=== PATIENT | male | born 1955 ===

== ENCOUNTER 2017-02-03 18:17 | Inpatient (IN) | payer MEDICARE, MEDICAID ==
--- NOTE | 2017-02-03 19:56 | ED PDOC ---
HPI: General Adult Time Seen by Provider: 02/03/17 18:32 Chief Complaint (Nursing): Substance Abuse Chief Complaint (Provider): Substance abuse History Per: Patient, Family History/Exam Limitations: no limitations Onset/Duration Of Symptoms: Days Have you had recent travel within the past 21 days to any of the following countries: [place], [place], [place] or [place]?: No Current Symptoms Are (Timing): Still Present Severity: Moderate Additional History Per: Patient, Family Additional Complaint(s): The pt is a 61yo male, with hx of 2x strokes, right sided paralysis and left arm weakness, presents to the ED for evaluation s/p ingesting high amounts of prescription medications. Pt accompanied by at bedside who reports pt has been increasingly agitated as he has not been able to take care of himself. She reports giving control of the medication to the pt and while at the house today , the pt's daughter called 911 after the patient had ingested pills. Provider called daughter ([phone]) who states her father took 6-7 percocets (10-325) and 3-4 gabapentins. Daughter reports the pt stated he wanted to hurt himself and "did not want to live anymore." Currently in the ED, pt reports he is fine and wishes to leave - pt states he was in a lot of pain and wanted to make himself feel better. At present, he denies any suicidal ideation and offers no additional medical complaints. Past Medical History Reviewed: Historical Data, Nursing Documentation, Vital Signs Vital Signs: Last Vital Signs Temp 102.2 F H 02/03/17 20:17 Pulse Resp BP Pulse Ox - Medical History PMH: Anemia, Anxiety, CVA, Depression, Gastritis, HTN, Hypercholesterolemia, Pneumonia Denies: HIV, Chronic Kidney Disease - Surgical History Surgical History: No Surg Hx - Family History Family History: States: Unknown Family Hx - Immunization History Hx Tetanus Toxoid Vaccination: No Hx Influenza Vaccination: No Hx Pneumococcal Vaccination: No - Home Medications Home Medications: Ambulatory Orders Medication Instructions Recorded Apixaban [Eliquis] 5 mg PO Q12H 06/07/15 Bisacodyl [Dulcolax] 10 mg SC DAILY 06/07/15 Docusate [Colace] 300 mg PO HS PRN 06/07/15 Gabapentin 600 mg PO TID 06/07/15 Insulin Aspart [Novolog Flexpen] 0 unit SC TID 06/07/15 Oxycodone HCl/Acetaminophen 1 tab PO Q6H PRN 06/07/15 [Endocet 10-325 mg Tablet] QUEtiapine [Seroquel XR] 300 mg PO HS 06/07/15 Rosuvastatin Calcium [Crestor] 40 mg PO HS 06/07/15 Trazodone HCl [Oleptro ER] 150 mg PO HS 06/07/15 hydrOXYzine Pamoate [Vistaril] 25 mg PO TID PRN 06/07/15 Clonazepam 1 mg PO DAILY 12/20/15 Clonazepam 2 mg PO HS 12/20/15 Esomeprazole Magnesium [Nexium] 40 mg PO DAILY 12/20/15 Lactobacillus Acidophilus [Bacid 1 tab PO BID 12/20/15 Acidophilus] Victoz 18mg/3ml 0.2 ml SC HS 12/20/15 Cephalexin [cephalexin] 500 mg PO QID #40 cap 06/21/16 Naloxegol Oxalate [Movantik] 25 mg PO QAM #30 tablet 06/21/16 - Allergies Allergies/Adverse Reactions: Allergies Allergy/AdvReac Type Severity Reaction Status Date / Time No Known Allergies Allergy Verified 06/21/16 12:23 Review of Systems ROS Statement: Except As Marked, All Systems Reviewed And Found Negative Musculoskeletal: Positive for: Other (left arm weakness - at baseline) Psych: Positive for: Other (substance abuse) Physical Exam - Reviewed Nursing Documentation Reviewed: Yes Vital Signs Reviewed: Yes - Physical Exam Appears: Positive for: Well, Non-toxic, No Acute Distress Head Exam: Positive for: ATRAUMATIC, NORMAL INSPECTION, NORMOCEPHALIC Skin: Positive for: Normal Color Eye Exam: Positive for: Normal appearance Neck: Positive for: Normal Cardiovascular/Chest: Positive for: Regular Rate, Rhythm Respiratory: Positive for: Normal Breath Sounds. Negative for: Respiratory Distress Gastrointestinal/Abdominal: Positive for: Normal Exam, Soft. Negative for: Tenderness Male Genital Exam: Positive for: other (marina in place) Neurologic/Psych: Positive for: Alert, Oriented, Motor/Sensory Deficits ( paralyzed in right arm, bilateral legs. ), Mood/Affect (normal mentation, at bedside who states pt with normal mentation) - Laboratory Results Result Diagrams: 02/03/17 19:20 02/03/17 19:20 Medical Decision Making Medical Decision Making: Time: 1855 Impression: Substance abuse Plan: -- Bloodwork -- CXR -- Urinalysis -- Crisis evaluation --Reassess 1911 Poison control contacted by RN - agree with labwork, requesting 4 hour Tylenol and repeat CMP 1999 Pt signed out to BRANDIE David pending labs and crisis evaluation. Scribe Attestation: Documented by Lisandra Collado acting as a scribe for BRANDIE Sharpe. Provider Attestation: All medical record entries made by the Scribe were at my direction and personally dictated by me. I have reviewed the chart and agree that the record accurately reflects my personal performance of the history, physical exam, medical decision making, and the department course for this patient. I have also personally directed, reviewed, and agree with the discharge instructions and disposition. Disposition - Clinical Impression Clinical Impression: Drug overdose, Suicidal ideation - Patient ED Disposition Is Patient to be Admitted: Transfer of Care - Disposition Disposition: Transfer of Care Disposition Time: 20:00 Condition: STABLE Patient Signed Over To: Samantha Camacho
[2017-02-03 19:57] LABS: BASO % 0.2 % (0.0-2.0); EOS # 0.2 K/uL (0.0-0.7); EOS % 1.4 % (0.0-4.0); HEMATOCRIT 36.4 % (35.0-51.0); LYMPH # 0.7 K/uL (1.0-4.3); LYMPH % 6.1 % (20.0-40.0); MEAN CELL VOLUME 93.7 fl (80.0-94.0); MEAN CORPUSCULAR HEMOGLOBIN 30.3 pg (27.0-31.0); MEAN CORPUSCULAR HGB CONC 32.3 g/dL (33.0-37.0); MEAN PLATELET VOLUME 7.2 fl (7.2-11.7); MONO # 0.5 K/uL (0.0-0.8); MONO % 4.1 % (0.0-10.0); NEUT # 10.2 K/uL (1.8-7.0); NEUT % 88.2 % (50.0-75.0); NRBC % 0.1 % (0.0-0.0); PLATELET COUNT 240 K/uL (130-400); RED CELL DISTRIBUTION WIDTH 13.1 % (11.5-14.5)
[2017-02-03 20:01] LABS: WHITE BLOOD COUNT 11.6 K/uL (4.8-10.8)
[2017-02-03 20:05] LABS: RBC URINE 24 /hpf (0-3); URINE BACTERIA MANY (<OCC); URINE BILIRUBIN NEGATIVE (NEGATIVE); URINE BLOOD MODERATE (NEGATIVE); URINE COLOR YELLOW (YELLOW); URINE GLUCOSE (UA) NEG (Normal); URINE KETONE NEGATIVE (NEGATIVE); URINE LEUKOCYTE ESTERASE LARGE Leu/uL (Negative); URINE PROTEIN 100 mg/dL (NEGATIVE); URINE UROBILINOGEN 0.2-1.0 mg/dL (0.2-1.0); WBC URINE 179 /hpf (0-5)
[2017-02-03 20:07] LABS: ALCOHOL SERUM < 10 mg/dl (0-10); BLOOD UREA NITROGEN 18 mg/dl (9-20); CALCIUM 9.1 mg/dL (8.4-10.2); CARBON DIOXIDE 25 mmol/L (22-30); CHLORIDE 104 mmol/L (98-107); GFR AFRICAN-AMERICAN > 60; GLUCOSE,RANDOM 228 mg/dL (75-110); POTASSIUM 4.4 MMOL/L (3.6-5.0); SODIUM 141 mmol/l (132-148)
[2017-02-03 20:46] LABS: VENOUS BLOOD GAS BASE EXCESS -1.7 mmol/L (0.0-2.0); VENOUS BLOOD GAS PCO2 59 mmHg (40-60); VENOUS BLOOD PH 7.26 (7.32-7.43)
[2017-02-03] MEDS ORDERED: Sodium Chloride 0.9% 1,000 ML IV STA (20:50)
[2017-02-03] MEDS ORDERED: Vancomycin 1 g Inj ONE (20:58)
[2017-02-03] MEDS ORDERED: Sodium Chloride 0.9% 2,000 ML IV STA (21:03)
--- NOTE | 2017-02-03 21:05 | ED PDOC ---
- Laboratory Results Result Diagrams: 02/03/17 19:20 02/03/17 19:20 Medical Decision Making Medical Decision Making: Pt endorsed pending labs and crisis evaluation. Pts temp 102.2, elevated wBC- lactate ordered with blood cultures, fluids, and antibiotics. Dr. Gna aware and has seen patient. Discussed with Dr. Goldberg for admission to telemetry. Disposition - Clinical Impression Clinical Impression: Overdose, Suicidal ideation, Catheter-associated urinary tract infection, Sepsis - POA Present On Arrival: Cath Associated UTI - Disposition Disposition: Admitted as In-Patient Disposition Time: 21:05 Condition: STABLE
[2017-02-03] MEDS ORDERED: Cefepime 1 GM in Sodium Chloride 0.9% 100 ML IVPB STA (21:11)
[2017-02-03] MEDS ORDERED: Cefepime 1 GM in Sodium Chloride 0.9% 100 ML IVPB ONE (21:30)
[2017-02-03 21:55] LABS: NEUTROPHIL 87 % (42-75); TOTAL CELLS COUNTED 100
[2017-02-03 22:37] LABS: ALB/GLOB RATIO 0.9 (1.0-2.1); BILIRUBIN,TOTAL 0.7 mg/dl (0.2-1.3); TOTAL PROTEIN 7.6 G/DL (6.3-8.2)
--- NOTE | 2017-02-03 22:50 | CP.PCM.CON ---
History of Present Illness - History of Present Illness History of Present Illness: Attending: Dr Goldberg Reason for consult: Critical care management Chief Complaint: Agitation/Depression/ Drug overdose state HPI: The hx is obtained from the Patient and the Medical records review. He is a 61 years old bed bound malemale with hx of DM II; Anemia; Suicide Ideation, CVA x3 with sequelas of right side paralysis. His daughter called 911 because he was depressed and ingested 6-7 Percocet tables at 10-325and 3-4 Gabapentin of 600mg each. She reported that the patient stated that he wanted to hurt himself. In the ED the patient was alert but Blood pressure drooped to a SBP of 80mmHg and a temperature of 102.2F, HR of 106/minute and Lactic acid of 3.2. He was still hypotensive despite 2L of NS. decision was made to admit to ICU. PMH: Anemia, Anxiety and Depression; CVA x+ with sequelas of right upper and lower extremities weakness; Gastritis; HTN, HLD; BPH; DM II; Osteoarthritis; Suicide Ideation; Incontinence; Indwelling marina catheter; Unsteady gait. PSH: No known surgery SH: Never smoked; No ETOH; No illegal drug use; Live with the Family FH: No known family hx Allergies: NKDA Review of Systems - Constitutional Constitutional: Fatigue, Weakness. absent: Chills, Fever, Headache - EENT Eyes: Requires Corrective Lenses. absent: Diplopia, Photophobia, Sees Flashes Ears: absent: Decreased Hearing, Ear Discharge, Ear Pain, Tinnitus Nose/Mouth/Throat: absent: Epistaxis, Nasal Congestion, Nasal Discharge, Sinus Pain, Sinus Pressure, Sore Throat - Cardiovascular Cardiovascular: Edema. absent: Chest Pain, Dyspnea, Lightheadedness, Palpitations - Respiratory Respiratory: absent: Cough, Dyspnea, Wheezing, Stridor - Gastrointestinal Gastrointestinal: absent: Constipation, Diarrhea, Nausea, Vomiting - Genitourinary Genitourinary: Urinary Incontinence. absent: Dysuria, Hematuria - Musculoskeletal Additional comments: Bed bound with pain to the right lower and upper extremity - Integumentary Integumentary: Swelling. absent: Skin Ulcer, Sores - Neurological Neurological: Focal Weakness. absent: Dizziness, Headaches, Memory Loss - Psychiatric Psychiatric: Anxiety, Depression, Suicidal Ideation - Endocrine Endocrine: absent: Palpitations, Polydipsia, Polyphagia, Polyuria - Hematologic/Lymphatic Hematologic: absent: Easy Bleeding, Easy Bruising Past Patient History - Past Medical History & Family History Past Medical History?: Yes - Past Social History Smoking Status: Never Smoked Chewing Tobacco Use: No Cigar Use: No Alcohol: None Drugs: Denies Home Situation {Lives}: With Family - CARDIAC Hx Hypercholesterolemia: Yes Hx Hypertension: Yes - PULMONARY Hx Pneumonia: Yes - NEUROLOGICAL Hx Neurological Disorder: Yes HX Cerebrovascular Accident: Yes Hx Meningitis: Yes - HEENT Hx HEENT Problems: No - RENAL Hx Chronic Kidney Disease: No - ENDOCRINE/METABOLIC Hx Endocrine Disorders: Yes Hx Diabetes Mellitus Type 2: Yes - HEMATOLOGICAL/ONCOLOGICAL Hx Anemia: Yes Hx Human Immunodeficiency Virus (HIV): No - INTEGUMENTARY Hx Dermatological Problems: No Other/Comment: MRSA - MUSCULOSKELETAL/RHEUMATOLOGICAL Hx Musculoskeletal Disorders: Yes Hx Falls: No Hx Unsteady Gait: Yes - GASTROINTESTINAL Hx Gastritis: Yes - GENITOURINARY/GYNECOLOGICAL Hx Genitourinary Disorders: Yes Hx Incontinence: Yes Hx Prostate Problems: Yes Hx Urinary Tract Infection: Yes Other/Comment: urinary retention - PSYCHIATRIC Hx Anxiety: Yes Hx Depression: Yes - SURGICAL HISTORY Hx Surgeries: Yes Other/Comment: Neck Sx, Right hand Sx, Right leg Sx cystoscopy - ANESTHESIA Hx Anesthesia: Yes Hx Anesthesia Reactions: No Hx Malignant Hyperthermia: No Meds Allergies/Adverse Reactions: Allergies Allergy/AdvReac Type Severity Reaction Status Date / Time No Known Allergies Allergy Verified 06/21/16 12:23 Physical Exam - Constitutional Appears: No Acute Distress - Head Exam Head Exam: ATRAUMATIC, NORMAL INSPECTION, NORMOCEPHALIC - Eye Exam Eye Exam: EOMI, Normal appearance - ENT Exam ENT Exam: Mucous Membranes Moist, Normal Exam, Normal External Ear Exam, Normal Oropharynx - Neck Exam Neck exam: Positive for: Full Rom, Normal Inspection - Respiratory Exam Respiratory Exam: Clear to Auscultation Bilateral. absent: Rales, Rhonchi, Wheezes - Cardiovascular Exam Cardiovascular Exam: REGULAR RHYTHM, RRR, +S1, +S2 - GI/Abdominal Exam Additional comments: Abdomen full, Nontender , Firm to palpation, +ve bowel sounds. - Rectal Exam Rectal Exam: Deferred - Extremities Exam Additional comments: Pain to the right leg, and the right lower back.Trace edema to both lower extremities. - Back Exam Back exam: NORMAL INSPECTION. absent: CVA tenderness (L), CVA tenderness (R) - Neurological Exam Neurological exam: Alert, Oriented x3, Reflexes Normal - Psychiatric Exam Psychiatric exam: Normal Affect, Normal Mood - Skin Skin Exam: Dry, Intact, Normal Color Results - Vital Signs Recent Vital Signs: Last Vital Signs Temp 102.3 F H 02/03/17 22:48 Pulse 105 H 02/03/17 22:48 Resp 20 02/03/17 22:48 BP 88/57 L 02/03/17 22:48 Pulse Ox 100 02/03/17 22:48 - Labs Result Diagrams: 02/03/17 23:20 02/03/17 23:20 - Imaging and Cardiology Chest x-ray Status: Image reviewed by me, Report reviewed by me Additional comment: No infiltrates. Assessment & Plan - Assessment and Plan (Free Text) Assessment: #.Catheter associated UTI #. Sepsis #. DM Uncontrolled #. Suicide Ideation #. anemia #. Hx of Old CVA with right side weakness Plan: 61 years old bed bound male with hx of DM II; Anemia; Suicide Ideation, CVA x3 with sequelas of right side paralysis. brought to the ED because he was depressed and ingested 6-7 Percocet tables at 10-325 and 3-4 Gabapentin of 600mg each. His daughter reported that the patient stated that he wanted to hurt himself. In the ED the patient was alert but Blood pressure drooped to a SBP of 80mmHg and a temperature of 102.2F, HR of 106/minute and Lactic acid of 3.2. He was still hypotensive despite 2L of NS. decision was made to admit to ICU. #.Catheter associated UTI - Change marina catheter - Moxifloxacin IVPB 2gms Q12hrs - follow urine culture #. Sepsis - Consult Dr Anglin ID - Follow Blood and Urine cultures - Antibiotics - IV fluids - follow Lactic aacid #. DM Uncontrolled - Diabetic diet - Insulin Lispro sliding scale according to accucheck - HbA1c #. Suicide Ideation/ Anxiety/depressive disorder - Consult Psychiatry dr Ochoa - psychiatric management #. Anemia - Follow Hb - follow HbA1c #. Hx of Old CVA with right side weakness - Social service consult for penitentiary placement -Apixaban/Crestor - OT/PT #. Gastritis - Pantoprazole #. DVT prophylaxis with Apixan #Code Status: Full - Date & Time Date: 02/03/17 Time: 22:50
[2017-02-03 23:42] LABS: BASO % 0.2 % (0.0-2.0); EOS # 0.1 K/uL (0.0-0.7); EOS % 0.7 % (0.0-4.0); HEMATOCRIT 31.4 % (35.0-51.0); LYMPH # 0.8 K/uL (1.0-4.3); LYMPH % 7.7 % (20.0-40.0); MEAN CELL VOLUME 94.1 fl (80.0-94.0); MEAN CORPUSCULAR HEMOGLOBIN 30.7 pg (27.0-31.0); MEAN CORPUSCULAR HGB CONC 32.6 g/dL (33.0-37.0); MEAN PLATELET VOLUME 7.1 fl (7.2-11.7); MONO # 0.8 K/uL (0.0-0.8); MONO % 7.2 % (0.0-10.0); NEUT # 9.1 K/uL (1.8-7.0); NEUT % 84.2 % (50.0-75.0); RED CELL DISTRIBUTION WIDTH 13.3 % (11.5-14.5); WHITE BLOOD COUNT 10.9 K/uL (4.8-10.8)
[2017-02-03 23:54] LABS: ALB/GLOB RATIO 0.8 (1.0-2.1); ALKALINE PHOSPHATASE 113 U/L (38-126); ALT/SGPT 36 U/L (21-72); AST/SGOT 33 U/L (17-59); BILIRUBIN,TOTAL 0.5 mg/dl (0.2-1.3); BLOOD UREA NITROGEN 16 mg/dl (9-20); CALCIUM 7.8 mg/dL (8.4-10.2); CARBON DIOXIDE 21 mmol/L (22-30); CHLORIDE 109 mmol/L (98-107); GFR AFRICAN-AMERICAN > 60; GLUCOSE,RANDOM 227 mg/dL (75-110); POTASSIUM 3.7 MMOL/L (3.6-5.0); SODIUM 141 mmol/l (132-148)
[2017-02-04 00:01] LABS: ABG ALLEN TEST YES; ARTERIAL BLOOD GAS HCO3 21.8 mmol/L (21-28); ARTERIAL BLOOD GAS MODE N/C; ARTERIAL BLOOD GAS PH 7.33 (7.35-7.45); ARTERIAL BLOOD GAS PO2 59 mm/Hg (80-100)
[2017-02-04] MEDS ORDERED: Oxycodone/Acetaminophen 5/325 mg Tab PO PRN ×4 (00:46→16:30)
[2017-02-04] MEDS: Sodium Chloride 0.9% 1,000 ML IV SCH ×4 (01:14→22:13)
[2017-02-04] MEDS: Oxycodone/Acetaminophen 5/325 mg Tab PO PRN ×3 (02:12→16:50)
[2017-02-04 04:38] VITALS: BMI 25.8
[2017-02-04] MEDS: Insulin Lispro (humaLOG) 100 Units/ml Inj SC SCH ×5 (06:06→21:49)
[2017-02-04 07:11] LABS: BASO % 0.3 % (0.0-2.0); EOS # 0.1 K/uL (0.0-0.7); EOS % 1.1 % (0.0-4.0); HEMATOCRIT 34.9 % (35.0-51.0); LYMPH # 1.5 K/uL (1.0-4.3); LYMPH % 14.5 % (20.0-40.0); MEAN CELL VOLUME 94.2 fl (80.0-94.0); MEAN CORPUSCULAR HGB CONC 32.9 g/dL (33.0-37.0); MEAN PLATELET VOLUME 6.9 fl (7.2-11.7); MONO # 0.6 K/uL (0.0-0.8); MONO % 6.3 % (0.0-10.0); NEUT % 77.8 % (50.0-75.0); NRBC % 0.1 % (0.0-0.0); RED CELL DISTRIBUTION WIDTH 13.6 % (11.5-14.5); WHITE BLOOD COUNT 10.3 K/uL (4.8-10.8)
[2017-02-04 07:58] LABS: BLOOD UREA NITROGEN 15 mg/dl (9-20); CALCIUM 8.5 mg/dL (8.4-10.2); CARBON DIOXIDE 20 mmol/L (22-30); CHLORIDE 112 mmol/L (98-107); GFR AFRICAN-AMERICAN > 60; GLUCOSE,RANDOM 183 mg/dL (75-110); POTASSIUM 3.8 MMOL/L (3.6-5.0); SODIUM 145 mmol/l (132-148)
[2017-02-04] MEDS ORDERED: CLONAZEPAM 1 MG PO SCH (09:00)
--- NOTE | 2017-02-04 09:47 | RAD ---
HISTORY: possible overdose COMPARISON: 06/21/2016 FINDINGS: LUNGS: The lungs are clear. PLEURA: No significant pleural effusion identified, no pneumothorax apparent. CARDIOVASCULAR: Normal. OSSEOUS STRUCTURES: No significant abnormalities. VISUALIZED UPPER ABDOMEN: Normal. OTHER FINDINGS: None. IMPRESSION: No acute findings.
--- NOTE | 2017-02-04 09:51 | RAD ---
HISTORY: sepsis, central line placement COMPARISON: 02/03/2017 at 7:12 p.m. FINDINGS: The right IJV line terminates in the right atrium. LUNGS: The lungs are clear. PLEURA: No significant pleural effusion identified, no pneumothorax apparent. CARDIOVASCULAR: Normal. OSSEOUS STRUCTURES: No significant abnormalities. VISUALIZED UPPER ABDOMEN: Normal. OTHER FINDINGS: None. IMPRESSION: No active pulmonary disease.
[2017-02-04] MEDS: Cefepime 2 GM in Sodium Chloride 0.9% 100 ML IVPB SCH ×2 (10:04→20:06)
[2017-02-04] MEDS: Pantoprazole 20 mg EC Tab PO SCH (10:05)
[2017-02-04] MEDS: Lactobacillus Acidophilus 500 MU Cap PO SCH ×2 (10:07→16:53)
--- NOTE | 2017-02-04 14:37 | CARD ---
APPROVED REPORT EKG Measurement Heart [id number] <Conclusion> Sinus tachycardia Otherwise normal ECG
[2017-02-04] MEDS ORDERED: Oxycodone/Acetaminophen 5/325 mg Tab ONE (16:41)
--- NOTE | 2017-02-04 16:45 | HP ---
CHIEF COMPLAINT: Change in mental status, suicidal ideation and drug overdose. HISTORY OF PRESENT ILLNESS: This is a 61-year-old male, known case of multiple CVAs, hypertension, h yperlipidemia, type 2 diabetes, arthritis, anemia and depression who was found by daughter after kiran waldron multiple drug overdoses and change in mental status. Also, patient was having . The patient was brought to Emergency Room and was admitted for further management after found septic. The patie nt is not able to provide any informative history or review of systems. PAST MEDICAL HISTORY: Significant for multiple CVAs, hypertension, hyperlipidemia, diabetes type 2, osteoarthritis, depression, incontinence with indwelling Owens catheter and CVA with hemiparesis. PAST SURGICAL HISTORY: Unremarkable. PERSONAL HISTORY: The patient is currently a nonsmoker, nondrinker, no substance abuse. MEDICATIONS: The patient is on multiple medications, which is as per reconciliation sheet, which was reviewed in order. ALLERGIES: The patient is not allergic to any medication. FAMILY HISTORY: Noncontributory. PHYSICAL EXAMINATION: GENERAL: Well-built, well-nourished overweight 61-year-old male in no acute distress, but not commun icative. VITAL SIGNS: Temperature 98.6, pulse 71, respirations 15, blood pressure 88/61. HEENT: Pupils reacting to light. Nystagmus, as the patient is not cooperative. NECK: Supple. No JVD, no thyromegaly, no lymphadenopathy. HEART: S1, S2 tachycardic. No significant murmur, gallop or rub is heard. LUNGS: Shows good bilateral air entry. No rales or rhonchi. ABDOMEN: Soft, nontender, no organomegaly, no fluid. Bowel sounds are plus. EXTREMITIES: No edema, no calf swelling, no tenderness, no acute ischemia. CENTRAL NERVOUS SYSTEM: The patient had multiple CVAs with hemiparesis. The patient is not able to participate for [facility] exam. DIAGNOSTIC DATA: Available diagnostic data reviewed. Telemetry monitoring does not reveal significa nt arrhythmias. WBC 10.3, hemoglobin 11.5, hematocrit 34.9, platelets 218. , pCO2 of 42, pO2 59, saturation 97%. Sodium 140, potassium 3.8, chloride 112, bicarb 20, BUN 15, creatinine 0.9, gluc ose is 198, and 190. Chest x-ray does not reveal any acute finding. EKG shows sinus tachycard ia, otherwise unremarkable. ADMITTING IMPRESSION: Septic shock, septicemia secondary to urinary tract infection, status post mul tiple cerebrovascular accidents, hypertension, type 2 diabetes with hyperglycemia, elevated cholester ol, anxiety, depression, suicidal attempt. PLAN: As ordered. 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 Phuc Goldberg MD cc: [phone] TT: 02/04/2017 16:45:07 mn
[2017-02-04 17:46] LABS: FOLATE 7.1 ng/mL
--- NOTE | 2017-02-04 18:30 | CP.PCM.CON ---
History of Present Illness - History of Present Illness History of Present Illness: 61 yo man admitted to ICU for urosepsis is referred for pain management. Patient is sedated but arousable. He admits to severe constant pain. 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 The pain involves the right side of his body, but he also has pain in his left leg as well. In addition to central pain from CVA, he also suffers from diabetic neuropathy. At home he takes Oxycontin 60mg q12h and Endocet 10/325mg, as well as Neurontin. He denies side effects from those medications or any other pain medications. He denies suicidal ideations. Since admission to the ICU, his pain has been moderately managed on Percocet 5/325mg x 2 tablets PRN. As of this afternoon his BP has been more stable and he is no longer on pressors. Currently he complains of not feeling too well due to the pain and rates his pain at 8/10. Past Patient History - Past Medical History & Family History Past Medical History?: Yes - Past Social History Smoking Status: Never Smoked Chewing Tobacco Use: No Cigar Use: No Alcohol: None Drugs: Denies Home Situation {Lives}: With Family - CARDIAC Hx Hypercholesterolemia: Yes Hx Hypertension: Yes - PULMONARY Hx Pneumonia: Yes - NEUROLOGICAL Hx Neurological Disorder: Yes HX Cerebrovascular Accident: Yes Hx Meningitis: Yes - HEENT Hx HEENT Problems: No - RENAL Hx Chronic Kidney Disease: No - ENDOCRINE/METABOLIC Hx Endocrine Disorders: Yes Hx Diabetes Mellitus Type 2: Yes - HEMATOLOGICAL/ONCOLOGICAL Hx Anemia: Yes Hx Human Immunodeficiency Virus (HIV): No - INTEGUMENTARY Hx Dermatological Problems: No Other/Comment: MRSA - MUSCULOSKELETAL/RHEUMATOLOGICAL Hx Musculoskeletal Disorders: Yes Hx Falls: No Hx Unsteady Gait: Yes - GASTROINTESTINAL Hx Gastritis: Yes - GENITOURINARY/GYNECOLOGICAL Hx Genitourinary Disorders: Yes Hx Incontinence: Yes Hx Prostate Problems: Yes Hx Urinary Tract Infection: Yes Other/Comment: urinary retention - PSYCHIATRIC Hx Anxiety: Yes Hx Depression: Yes - SURGICAL HISTORY Hx Surgeries: Yes Other/Comment: Neck Sx, Right hand Sx, Right leg Sx cystoscopy - ANESTHESIA Hx Anesthesia: Yes Hx Anesthesia Reactions: No Hx Malignant Hyperthermia: No Meds Allergies/Adverse Reactions: Allergies Allergy/AdvReac Type Severity Reaction Status Date / Time No Known Allergies Allergy Verified 06/21/16 12:23 - Medications Medications: Current Medications Acetaminophen (Tylenol 325mg Tab) 650 mg PO Q4 PRN PRN Reason: Fever >100.4 F Atorvastatin Calcium (Lipitor) 80 mg PO HS [facility] Bisacodyl (Dulcolax) 10 mg ME DAILY [facility] Last Admin: 02/04/17 10:07 Dose: Not Given Clonazepam (Klonopin) 1 mg PO DAILY [facility] Last Admin: 02/04/17 10:07 Dose: 1 mg Clonazepam (Klonopin) 2 mg PO HS [facility] Clopidogrel Bisulfate (Plavix) 75 mg PO DAILY [facility] Last Admin: 02/04/17 16:26 Dose: Not Given Docusate Sodium (Colace) 300 mg PO HS PRN PRN Reason: Constipation Gabapentin (Neurontin) 300 mg PO Q8 [facility] Last Admin: 02/04/17 16:51 Dose: 300 mg Home Med (Patient's Own Medication) 1 unit PO QAM [facility] Norepinephrine Bitartrate 8 mg (/ Dextrose) 258 mls @ 4.83 mls/hr IV .Q24H ONE PRN Reason: 2.5 MCG/MIN Stop: 02/04/17 23:40 Last Admin: 02/04/17 01:09 Dose: 4.83 mls/hr Sodium Chloride (Sodium Chloride 0.9%) 1,000 mls @ 150 mls/hr IV .Q6H40M [facility] Stop: 02/05/17 01:01 Last Admin: 02/04/17 15:22 Dose: 150 mls/hr Cefepime HCl 2 gm/ Sodium (Chloride) 100 mls @ 100 mls/hr IVPB Q12 [facility] Last Admin: 02/04/17 10:04 Dose: 100 mls/hr Tobramycin Sulfate 120 mg/ (Sodium Chloride) 103 mls @ 100 mls/hr IVPB Q24H [facility] Insulin Human Lispro (Humalog) 0 units SC ACHS [facility] PRN Reason: Protocol Last Admin: 02/04/17 16:51 Dose: 3 units Lactobacillus Acidophilus (Bacid Acidophilus) 1 cap PO BID [facility] Last Admin: 02/04/17 16:53 Dose: 1 cap Oxycodone/Acetaminophen (Percocet 5/325 Mg Tab) 1 tab PO Q4 PRN PRN Reason: Pain, moderate (4-7) Stop: 02/07/17 16:31 Oxycodone/Acetaminophen (Percocet 5/325 Mg Tab) 2 tab PO Q4 PRN PRN Reason: Pain, severe (8-10) Stop: 02/07/17 16:34 Last Admin: 02/04/17 16:50 Dose: 2 tab Pantoprazole Sodium (Protonix Ec Tab) 20 mg PO DAILY [facility] Last Admin: 02/04/17 10:05 Dose: 20 mg Physical Exam - Constitutional Appears: No Acute Distress Results - Vital Signs Recent Vital Signs: Last Vital Signs Temp 102.6 F H 02/04/17 16:50 Pulse 83 02/04/17 18:00 Resp 27 H 02/04/17 18:00 BP 107/63 02/04/17 18:00 Pulse Ox 96 02/04/17 18:00 - Labs Result Diagrams: 02/04/17 06:45 02/04/17 06:45 Labs: Laboratory Results - last 24 hr 02/03/17 02/03/17 02/03/17 22:18 23:20 23:47 WBC 10.9 H RBC 3.33 L Hgb 10.2 L Hct 31.4 L MCV 94.1 H MCH 30.7 MCHC 32.6 L RDW 13.3 Plt Count 191 MPV 7.1 L Neut % (Auto) 84.2 H Lymph % (Auto) 7.[address] [facility] % (Auto) 7.2 Eos % (Auto) 0.7 Baso % (Auto) 0.2 Neut # 9.1 H Lymph # 0.[address] [facility] # 0.8 Eos # 0.1 Baso # 0.0 pCO2 42 pO2 59 L HCO3 21.8 ABG pH 7.33 L ABG Total CO2 23.4 ABG O2 Saturation 97.0 ABG Base Excess -3.7 L Emil Test Yes ABG Potassium 3.7 A-a O2 Difference 117.0 Glucose 247 H Lactate 1.1 Vent Mode N/c FiO2 32.0 Blood Gas Notified Time 1 Sodium 141 137.0 Potassium 3.7 Chloride 109 H 114.0 H Carbon Dioxide 21 L Anion Gap 15 BUN 16 Creatinine 0.8 Est GFR ( Amer) > 60 Est GFR (Non-Af Amer) > 60 POC Glucose (mg/dL) Random Glucose 227 H Hemoglobin A1c Lactic Acid Calcium 7.8 L Total Bilirubin 0.7 0.5 Direct Bilirubin 0.5 H AST 38 33 ALT 37 36 Alkaline Phosphatase 138 H D 113 Total Protein 7.6 6.0 L Albumin 3.7 2.7 L D Globulin 3.9 3.2 Albumin/Globulin Ratio 0.9 L 0.8 L Lipase 119 Vitamin B12 Folate Arterial Blood Potassium 3.7 Acetaminophen < 10.0 L 02/04/17 02/04/17 02/04/17 05:41 06:45 07:06 WBC 10.3 RBC 3.70 L Hgb 11.5 L Hct 34.9 L MCV 94.2 H MCH 31.0 MCHC 32.9 L RDW 13.6 Plt Count 218 MPV 6.9 L Neut % (Auto) 77.8 H Lymph % (Auto) 14.[address] [facility] % (Auto) 6.3 Eos % (Auto) 1.1 Baso % (Auto) 0.3 Neut # 8.0 H Lymph # 1.5 [facility] # 0.6 Eos # 0.1 Baso # 0.0 pCO2 pO2 HCO3 ABG pH ABG Total CO2 ABG O2 Saturation ABG Base Excess Emil Test ABG Potassium A-a O2 Difference Glucose Lactate Vent Mode FiO2 Blood Gas Notified Time Sodium 145 Potassium 3.8 Chloride 112 H Carbon Dioxide 20 L Anion Gap 17 BUN 15 Creatinine 0.9 Est GFR ( Amer) > 60 Est GFR (Non-Af Amer) > 60 POC Glucose (mg/dL) 198 H Random Glucose 183 H Hemoglobin A1c 8.4 H D Lactic Acid 0.9 Calcium 8.5 Total Bilirubin Direct Bilirubin AST ALT Alkaline Phosphatase Total Protein Albumin Globulin Albumin/Globulin Ratio Lipase Vitamin B12 453 Folate 7.1 Arterial Blood Potassium Acetaminophen 02/04/17 02/04/17 12:18 16:12 WBC RBC Hgb Hct MCV MCH MCHC RDW Plt Count MPV Neut % (Auto) Lymph % (Auto) [facility] % (Auto) Eos % (Auto) Baso % (Auto) Neut # Lymph # [facility] # Eos # Baso # pCO2 pO2 HCO3 ABG pH ABG Total CO2 ABG O2 Saturation ABG Base Excess Emil Test ABG Potassium A-a O2 Difference Glucose Lactate Vent Mode FiO2 Blood Gas Notified Time Sodium Potassium Chloride Carbon Dioxide Anion Gap BUN Creatinine Est GFR ( Amer) Est GFR (Non-Af Amer) POC Glucose (mg/dL) 190 H 229 H Random Glucose Hemoglobin A1c Lactic Acid Calcium Total Bilirubin Direct Bilirubin AST ALT Alkaline Phosphatase Total Protein Albumin Globulin Albumin/Globulin Ratio Lipase Vitamin B12 Folate Arterial Blood Potassium Acetaminophen Assessment & Plan (1) Sepsis Assessment and Plan: 61 yo man w/ sepsis, has history of chronic central pain from CVA. Pain regimen has been reduced due to sepsis/hypotension. Clinically improving. Questionable suicidal attempt, but patient denies. - continue Percocet PRN for now, dosage depending on level of pain and mentation - hold Oxycontin for now - f/u psych recommendation - may re-introduce Oxycontin and neuropathic medications once patient improves clinically and is cleared by psych Status: Acute
[2017-02-04] MEDS ORDERED: Cefepime 1 GM in Sodium Chloride 0.9% 100 ML IVPB ONE (20:30)
[2017-02-04] MEDS ORDERED: CLONAZEPAM 2 MG PO SCH (22:00)
[2017-02-04] MEDS ORDERED: QUETIAPINE 300 MG PO SCH (22:00)
[2017-02-04] MEDS ORDERED: TRAZODONE HCL 150 MG PO SCH (22:00)
[2017-02-05] MEDS: Oxycodone/Acetaminophen 5/325 mg Tab PO PRN ×4 (00:08→12:49)
--- NOTE | 2017-02-05 03:23 | CON ---
DATE: 02/04/2017 HISTORY OF PRESENT ILLNESS: The patient was admitted from the Emergency Room to the intensive care u [facility] because of depression, agitation and a possible accidental drug overdose. Most of the history is taken from the patient and family and also had reviewed the past medical records. He is a 61-year-o ld bed bound male with a history of diabetes, anemia, possible suicidal ideation, multiple CVAs with right side paralysis. Family called the daughter and 911 because he may have ingested 6-7 Percocets 10/325 and multiple gabapentin of 600 mg. He stated that he wanted to hurt himself to the daughter. When discussed with him today, he did, but when he went into the ER, his blood pressure dropped and he had a temperature of 102.2 with a heart rate of greater than 106 and lactic acid 3.2. PAST MEDICAL HISTORY: Includes anemia, anxiety and depression, CVA with resultant multiple CVAs resu lting in right upper and lower extremity weaknesses, gastritis, HTN and BPH. The patient also has a n indwelling Owens catheter. PHYSICAL EXAMINATION: GENERAL: He had some difficulty speaking. THROAT: Mildly injected. NECK: Supple. LUNGS: Essentially clear. HEART: Regular sinus rhythm. ABDOMEN: Soft, positive bowel sounds. He does have pain when touching the right and left suprapubic areas and immediately in the center of the suprapubic area. The patient has an indwelling Owens cat heter that has been changed in the past 24 hours. On review of his labs, right now the urine cultur e lab is pending. I had discussed with the microbiology lab to please do a complete panel as on his last hospitalization, 06/21/16, he had a multidrug resistant pseudomonas and had asked them to do a co mplete antibiotic panel on it. He seems to have pain in the right upper extremity and both lower extr emities. IMPRESSION: He has a urinary tract infection with subsequent sepsis, possibly catheter associated. As noted before, I am attempting to get complete urine culture and sensitivity done. At the moment, malika agudelo is on Maxipime, which was almost resistant, I would say, but it is the only positive sensitivity an d he is on Maxipime 2 grams q. 12, which we will continue until we get back the next urine culture. At present, will follow and hopefully obtain better sensitivities than previously. Gary Anglin MD cc: [id number] TT: 02/05/2017 03:22:18 Confirmation # [id number] Dictation # [id number] tn
[2017-02-05 06:04] LABS: ALB/GLOB RATIO 0.8 (1.0-2.1); ALKALINE PHOSPHATASE 128 U/L (38-126); ALT/SGPT 39 U/L (21-72); AST/SGOT 33 U/L (17-59); BILIRUBIN,TOTAL 0.7 mg/dl (0.2-1.3); BLOOD UREA NITROGEN 10 mg/dl (9-20); CALCIUM 8.9 mg/dL (8.4-10.2); CARBON DIOXIDE 22 mmol/L (22-30); CHLORIDE 112 mmol/L (98-107); GFR AFRICAN-AMERICAN > 60; GLUCOSE,RANDOM 151 mg/dL (75-110); POTASSIUM 3.5 MMOL/L (3.6-5.0); SODIUM 145 mmol/l (132-148); TOTAL PROTEIN 6.5 G/DL (6.3-8.2)
[2017-02-05 06:38] LABS: HEMATOCRIT 34.8 % (35.0-51.0); MEAN CORPUSCULAR HEMOGLOBIN 30.8 pg (27.0-31.0); MEAN CORPUSCULAR HGB CONC 33.1 g/dL (33.0-37.0); RED CELL DISTRIBUTION WIDTH 13.4 % (11.5-14.5)
[2017-02-05] MEDS: Insulin Lispro (humaLOG) 100 Units/ml Inj SC SCH ×4 (07:14→22:04)
--- NOTE | 2017-02-05 08:16 | PN ---
DATE: 02/04/2017 LOCATION: The patient in ICU, bed 423. TIME SPENT: 35 minutes. The patient is seen and evaluated at the bedside. SUBJECTIVE: Events since admission reviewed. A 61-year-old male with a history of anxiety, depression, suicidal ideation status post cerebrovascular accident with right hemiparesis, weakness of left, admitted with change in mental status,_ noted to have septic toxic encephalopathy secondary to urinary tract infection, history of diabetes mellitus type 2 and anemia. Overnight, more wakeful, less agitated. No headache. Denies shortness of breath, chest pain, no palpitation, no abdominal pain, no diarrhea. No dysuria. PHYSICAL EXAMINATION: VITAL SIGNS: Temperature 102.6, heart rate 96 regular, blood pressure 108/66, respiratory rate 31, saturating 95% on oxygen 2 liters nasal cannula. Intake 2560, output 2000, positive ____60. Weight 170 pounds. HEENT: Pupils reactive. Conjunctivae pale. Sclerae are white. No nystagmus. NECK: Supple. No jugular venous distention. No lymphadenopathy. HEART: Rhythm regular. S1, S2 normal. No audible murmur, rub or gallop. LUNGS: Bilateral breath sounds diminished in intensity. ABDOMEN: Bowel sounds present, soft, nontender. EXTREMITIES: No edema. No palpable cord. Peripheral pulses symmetric and intact. CENTRAL NERVOUS SYSTEM: Right hemiparesis, weakness left, reduced strength on the left upper arm. GENITALIA: Owens catheter in place, changed to a new one. CURRENT MEDICATIONS: Tylenol 650 every 4 hours p.r.n., Lipitor 80 mg daily, cefepime 2 grams IV every 12 hours, clonazepam 1 mg p.o. daily, Klonopin 2 mg p.o. at night _ daily, Plavix 75 mg p.o. daily, Colace 300 mg p.o. at bedtime p.r.n., Neurontin 300 mg p.o. every 8 hours, Accu-Chek with regular insulin coverage, lactobacillus 1 capsule twice daily, Percocet 5/325 mg 1 tablet every 4 hours p.r.n. for pain, oxycodone with acetaminophen 5/325 two tablets every 4 hours p.r.n., Protonix EC 20 mg p.o. daily, tobramycin sulfate 120 mg every 24 hours. IMPRESSION: 1. Septic toxic encephalopathy. 2. Sepsis associated with catheter associated urinary tract infection. 3. Diabetes mellitus type 2. 4. Suicidal ideation. History of depression, anxiety, anemia of chronic disease, status post cerebrovascular accident with right hemiparesis. PLAN: Continue moxifloxacin and DVT and GI prophylaxis, psych evaluation. May benefit from pain management to reduce overdose on Percocet and clonazepam. Edgar Knight MD cc: [id number] TT: 02/04/2017 23:05:25 Confirmation # [id number] Dictation # [id number] mn [facility]
[2017-02-05] MEDS: Lactobacillus Acidophilus 500 MU Cap PO SCH ×2 (09:26→17:31)
[2017-02-05] MEDS: MOVANTIK 25MG TABLET PO SCH (09:27)
[2017-02-05] MEDS: Pantoprazole 20 mg EC Tab PO SCH (09:27)
[2017-02-05] MEDS: Cefepime 2 GM in Sodium Chloride 0.9% 100 ML IVPB SCH ×2 (09:28→22:17)
--- NOTE | 2017-02-05 09:59 | CP.PCM.CON ---
History of Present Illness - History of Present Illness History of Present Illness: Psychiatry consult called for Depression CC: "Yes, I feel depressed when I think about my life." HPI: 61 yo male with a self reported h/o depression vs schizophrenia, reports that he currently feels depressed in the context of chronic pain and right sided paralysis. As per records the patients daughter called EMS because she believed he ingested an overdose of Percocet and Gabapentin. Patient denies that he had a suicide attempt and this was confirmed by his , who stated that she does not believe he over dosed on medications and checked the tablets in the containers. He reports that he does feel depressed at times due to his chronic medical issues, but does not have an active ideation to kill himself. He reports thoughts of hanging himself 6 months ago, but has not had any active ideation since then, and denies suicide attempts. He reports that 2 months ago he saw "people walking in front of him" but denies current hallucinations. He reports that he wants to live for his and 3 children. No grey, psychosis , paranoia, delusions, racing thoughts, pressured speech, obsessions/ compulsions. Patient's , Marci Klein, confirmed that she does not believe the patient made a suicide attempt. She stated that he has made passive suicidal comments in the past, such as "I don't want to live like this anymore," but has not made any active suicidal ideation/plan/intent recently. She does not believe he is an acute danger to himself or others and does not believe he needs acute inpatient psychiatric admission. She reports that she was seen by, but has not made any recent comments and she does not believe he is an acute danger to himself. She cares for the patient and states that he does not have access to items he could kill himself with at home. PPHx: H/o one psychiatric admission >10 year ago. Denies h/o suicide attempts. No current outpatient psychiatric tx. PMH: Anemia, Anxiety and Depression; CVA x+ with sequelas of right upper and lower extremities weakness; Gastritis; HTN, HLD; BPH; DM II; Osteoarthritis; Suicide Ideation; Incontinence; Indwelling marina catheter; Unsteady gait. 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 Recommendations: -Patient not interested in voluntary psychiatric admission and does not meet criteria for involuntary admission -1:1 not needed as patient is able to contract for safety -Continue Klonopin -Can restart Effexor 75 mg PO BID (patient reports he was taking Effexor at home prior to admission but does not recall dosage) -Patient would benefit from outpatient psychiatric follow-up and/or visiting nurse services -Re-consult with further questions, Dr. Montesinos Past Patient History - Past Medical History & Family History Past Medical History?: Yes - Past Social History Smoking Status: Never Smoked Chewing Tobacco Use: No Cigar Use: No Alcohol: None Drugs: Denies Home Situation {Lives}: With Family - CARDIAC Hx Hypercholesterolemia: Yes Hx Hypertension: Yes - PULMONARY Hx Pneumonia: Yes - NEUROLOGICAL Hx Neurological Disorder: Yes HX Cerebrovascular Accident: Yes Hx Meningitis: Yes - HEENT Hx HEENT Problems: No - RENAL Hx Chronic Kidney Disease: No - ENDOCRINE/METABOLIC Hx Endocrine Disorders: Yes Hx Diabetes Mellitus Type 2: Yes - HEMATOLOGICAL/ONCOLOGICAL Hx Anemia: Yes Hx Human Immunodeficiency Virus (HIV): No - INTEGUMENTARY Hx Dermatological Problems: No Other/Comment: MRSA - MUSCULOSKELETAL/RHEUMATOLOGICAL Hx Musculoskeletal Disorders: Yes Hx Falls: No Hx Unsteady Gait: Yes - GASTROINTESTINAL Hx Gastritis: Yes - GENITOURINARY/GYNECOLOGICAL Hx Genitourinary Disorders: Yes Hx Incontinence: Yes Hx Prostate Problems: Yes Hx Urinary Tract Infection: Yes Other/Comment: urinary retention - PSYCHIATRIC Hx Anxiety: Yes Hx Depression: Yes - SURGICAL HISTORY Hx Surgeries: Yes Other/Comment: Neck Sx, Right hand Sx, Right leg Sx cystoscopy - ANESTHESIA Hx Anesthesia: Yes Hx Anesthesia Reactions: No Hx Malignant Hyperthermia: No Meds Allergies/Adverse Reactions: Allergies Allergy/AdvReac Type Severity Reaction Status Date / Time No Known Allergies Allergy Verified 06/21/16 12:23 - Medications Medications: Current Medications Acetaminophen (Tylenol 325mg Tab) 650 mg PO Q4 PRN PRN Reason: Fever >100.4 F Atorvastatin Calcium (Lipitor) 80 mg PO HS [facility] Last Admin: 02/04/17 21:53 Dose: 80 mg Bisacodyl (Dulcolax) 10 mg [place] DAILY [facility] Last Admin: 02/04/17 10:07 Dose: Not Given Clonazepam (Klonopin) 1 mg PO DAILY [facility] Last Admin: 02/04/17 10:07 Dose: 1 mg Clonazepam (Klonopin) 2 mg PO HS [facility] Last Admin: 02/04/17 22:05 Dose: 2 mg Clopidogrel Bisulfate (Plavix) 75 mg PO DAILY [facility] Last Admin: 02/05/17 09:28 Dose: 75 mg Docusate Sodium (Colace) 300 mg PO HS PRN PRN Reason: Constipation Gabapentin (Neurontin) 300 mg PO Q8 [facility] Last Admin: 02/05/17 09:27 Dose: 300 mg Home Med (Patient's Own Medication) 1 unit PO QAM [facility] Last Admin: 02/05/17 09:27 Dose: 1 unit Cefepime HCl 2 gm/ Sodium (Chloride) 100 mls @ 100 mls/hr IVPB Q12 [facility] Last Admin: 02/05/17 09:28 Dose: 100 mls/hr Tobramycin Sulfate 120 mg/ (Sodium Chloride) 103 mls @ 100 mls/hr IVPB Q24H [facility] Last Admin: 02/04/17 19:48 Dose: 100 mls/hr Insulin Human Lispro (Humalog) 0 units SC ACHS [facility] PRN Reason: Protocol Last Admin: 02/05/17 07:14 Dose: 2 units Lactobacillus Acidophilus (Bacid Acidophilus) 1 cap PO BID [facility] Last Admin: 02/05/17 09:26 Dose: 1 cap Oxycodone/Acetaminophen (Percocet 5/325 Mg Tab) 1 tab PO Q4 PRN PRN Reason: Pain, moderate (4-7) Stop: 02/07/17 16:31 Oxycodone/Acetaminophen (Percocet 5/325 Mg Tab) 2 tab PO Q4 PRN PRN Reason: Pain, severe (8-10) Stop: 02/07/17 16:34 Last Admin: 02/05/17 08:45 Dose: 2 tab Pantoprazole Sodium (Protonix Ec Tab) 20 mg PO DAILY [facility] Last Admin: 02/05/17 09:27 Dose: 20 mg Results - Vital Signs Recent Vital Signs: Last Vital Signs Temp 99.5 F 02/05/17 08:00 Pulse 75 02/05/17 08:00 Resp 36 H 02/05/17 08:00 BP 142/77 02/05/17 08:00 Pulse Ox 100 02/05/17 08:00 - Labs Result Diagrams: 02/05/17 04:30 02/05/17 04:30 Labs: Laboratory Results - last 24 hr 02/04/17 02/04/17 02/04/17 06:45 12:18 16:12 WBC RBC Hgb Hct MCV MCH MCHC RDW Plt Count Sodium Potassium Chloride Carbon Dioxide Anion Gap BUN Creatinine Est GFR ( Amer) Est GFR (Non-Af Amer) POC Glucose (mg/dL) 190 H 229 H Random Glucose Hemoglobin A1c 8.4 H D Calcium Total Bilirubin AST ALT Alkaline Phosphatase Total Protein Albumin Globulin Albumin/Globulin Ratio Folate 7.1 02/04/17 02/05/17 02/05/17 21:39 04:30 05:18 WBC 9.0 RBC 3.74 L Hgb 11.5 L Hct 34.8 L MCV 93.0 MCH 30.8 MCHC 33.1 RDW 13.4 Plt Count 196 Sodium 145 Potassium 3.5 L Chloride 112 H Carbon Dioxide 22 Anion Gap 15 BUN 10 Creatinine 0.9 Est GFR ( Amer) > 60 Est GFR (Non-Af Amer) > 60 POC Glucose (mg/dL) 187 H 158 H Random Glucose 151 H Hemoglobin A1c Calcium 8.9 Total Bilirubin 0.7 AST 33 ALT 39 Alkaline Phosphatase 128 H Total Protein 6.5 Albumin 2.8 L Globulin 3.6 Albumin/Globulin Ratio 0.8 L Folate Assessment & Plan - Assessment and Plan (Free Text) Assessment: Patient evaluated, chart reviewed, collateral obtained from , 55 min
--- NOTE | 2017-02-05 10:28 | PN ---
DATE: 02/05/2017 The patient seen and examined. Interim events noted. Consults noted, appreciated. The patient [place] ins in intensive care unit. The patient is awake, responsive, much more verbal and communicative. M uch improved since yesterday. Complains of his chronic pains but no other new complaint. No chest p ain or shortness of breath. PHYSICAL EXAMINATION: GENERAL: The patient is in no acute distress. VITAL SIGNS: Stable. HEART: S1, S2 normal, regular. LUNGS: Good bilateral air exchange. ABDOMEN: Soft, nontender. EXTREMITIES: No calf swelling, no tenderness, no acute ischemia. CENTRAL NERVOUS SYSTEM: Essentially unchanged. DIAGNOSTIC DATA: Available diagnostic data reviewed. Overall, patient's general medical condition is stable and improving. PLAN: As ordered. Case and plan was discussed with freelance court stenographer. Phuc Goldberg MD cc: [id number] TT: 02/05/2017 10:27:21 Confirmation # [id number] Dictation # [id number] seferino
[2017-02-05] MEDS: Sodium Chloride 0.9% 1,000 ML IV SCH (11:10)
[2017-02-05] MEDS ORDERED: Potassium Chloride 10 mEq ER Tab PO ONE (11:33)
--- NOTE | 2017-02-05 12:59 | CP.PCM.PN ---
Subjective - Date & Time of Evaluation Date of Evaluation: 02/05/17 Time of Evaluation: 12:50 - Subjective Subjective: History is taken with at the bedside, who stated that the patient had an episode of chills and shakiness from the infection at home and didn't overdose as a suicidal attempt. Patient states that the Percocet is hardly helping him at all. At home the Oxycontin 60mg helps more compared to the Percocet. Prior to the latest CVA, his Neurontin dose had been at 600mg q8h but that was weaned down to 100mg after the CVA before being re-titrated back to 300mg. He denies side effects to MSIR or Dilaudid before. Objective - Vital Signs/Intake and Output Vital Signs (last 24 hours): Temp Pulse Resp BP Pulse Ox 100.5 F H 84 17 141/92 H 97 02/05/17 10:00 02/05/17 10:00 02/05/17 10:00 02/05/17 10:00 02/05/17 10:00 Intake and Output: 02/05/17 02/05/17 06:59 18:59 Intake Total 1950 840 Output Total 3300 1400 Balance -1350 -560 - Medications Medications: Current Medications Acetaminophen (Tylenol 325mg Tab) 650 mg PO Q4 PRN PRN Reason: Fever >100.4 F Atorvastatin Calcium (Lipitor) 80 mg PO HS [facility] Last Admin: 02/04/17 21:53 Dose: 80 mg Bisacodyl (Dulcolax) 10 mg [place] DAILY [facility] Last Admin: 02/05/17 11:10 Dose: Not Given Clonazepam (Klonopin) 1 mg PO DAILY [facility] Last Admin: 02/05/17 11:08 Dose: 1 mg Clonazepam (Klonopin) 2 mg PO HS [facility] Last Admin: 02/04/17 22:05 Dose: 2 mg Clopidogrel Bisulfate (Plavix) 75 mg PO DAILY [facility] Last Admin: 02/05/17 09:28 Dose: 75 mg Docusate Sodium (Colace) 300 mg PO HS PRN PRN Reason: Constipation Gabapentin (Neurontin) 300 mg PO Q8 [facility] Last Admin: 02/05/17 09:27 Dose: 300 mg Home Med (Patient's Own Medication) 1 unit PO QAM [facility] Last Admin: 02/05/17 09:27 Dose: 1 unit Cefepime HCl 2 gm/ Sodium (Chloride) 100 mls @ 100 mls/hr IVPB Q12 [facility] Last Admin: 02/05/17 09:28 Dose: 100 mls/hr Tobramycin Sulfate 120 mg/ (Sodium Chloride) 103 mls @ 100 mls/hr IVPB Q24H [facility] Last Admin: 02/04/17 19:48 Dose: 100 mls/hr Sodium Chloride (Sodium Chloride 0.9%) 1,000 mls @ 50 mls/hr IV .Q20H [facility] Stop: 02/06/17 10:46 Last Admin: 02/05/17 11:10 Dose: 50 mls/hr Insulin Human Lispro (Humalog) 0 units SC ACHS [facility] PRN Reason: Protocol Last Admin: 02/05/17 12:50 Dose: 2 units Lactobacillus Acidophilus (Bacid Acidophilus) 1 cap PO BID [facility] Last Admin: 02/05/17 09:26 Dose: 1 cap Oxycodone/Acetaminophen (Percocet 5/325 Mg Tab) 1 tab PO Q4 PRN PRN Reason: Pain, moderate (4-7) Stop: 02/07/17 16:31 Oxycodone/Acetaminophen (Percocet 5/325 Mg Tab) 2 tab PO Q4 PRN PRN Reason: Pain, severe (8-10) Stop: 02/07/17 16:34 Last Admin: 02/05/17 12:49 Dose: 2 tab Pantoprazole Sodium (Protonix Ec Tab) 20 mg PO DAILY [facility] Last Admin: 02/05/17 09:27 Dose: 20 mg - Labs Labs: 02/05/17 04:30 02/05/17 04:30 Assessment and Plan (1) Sepsis Assessment & Plan: 61 yo man w/ urosepsis and chronic pain. Clinically improving. Psych ruled out suicidal attempt. BP has been stable on the current dosage of pain medications. - restart Oxycontin, at 30mg q12h - d/c Percocet, trial of MSIR, 15mg and 30mg depending on pain level - continue Neurontin at 300mg q8h Status: Acute
[2017-02-05] MEDS ORDERED: Morphine 30 mg Immediate Release Tab PO PRN (13:03)
[2017-02-05] MEDS ORDERED: Morphine 15 mg Immediate Release Tab PO PRN (13:03)
--- NOTE | 2017-02-05 14:51 | OP ---
PROCEDURE DATE: 02/05/2017 The patient in ICU, bed 423. TIME SPENT: 35 minutes. The patient is seen and evaluated at the bedside. Events since admission reviewed. Past medical, so cial, family history reviewed and remain unchanged. A 61-year-old male with history significant for anxiety, depression, suicidal ideation, status post CVA with right hemiparesis, weakness of left arm, admitted with change in the mental status. Noted to have a septic, toxic encephalopathy, urinary tr act infection, catheter related, diabetes mellitus type 2, anemia from chronic disease. Overnight re darryl wakeful, less agitated, demanding for pain medications more than the due time, seen by pain man kimberly, appreciate recommendations. This morning, alert, awake, follows commands appropriate. Harsha es headache. No shortness of breath, chest pain. No palpitation, abdominal pain, diarrhea, dysuria. Complaining of some chronic pain, unchanged. PHYSICAL EXAMINATION: VITAL SIGNS: Temperature 99.5.l T-max yesterday 102.6, heart rate 75 regular, blood pressure 142/77 , respiratory rate 20 thoracoabdominal, saturating 100% on oxygen 2 L nasal cannula. Intake 5290, ou tput 6500, negative 1210. Weight 170 pounds. HEAD, EYES, EARS, NOSE AND THROAT: Pupils reactive. Conjunctivae pink. Sclerae white. NECK: Supple. Trachea central. CHEST: Bilateral breath sounds diminished in intensity: HEART: Rhythm regular. S1, S2 normal. No audible murmur, rub or gallop. ABDOMEN: Bowel sounds present, soft. EXTREMITIES: No edema, no palpable cord. Peripheral pulses intact and symmetric. NEUROLOGIC: Right hemiparesis, reduced strength on the left arm. GENITALIA: Owens catheter in place, replaced with a new one day 2. CURRENT MEDICATIONS: Include Tylenol 650 q. 4 p.r.n. for temperature more than 100.4, Lipitor 80 mg at night, Dulcolax 10 mg per rectum daily, cefepime 2 grams IV q, 12, clonazepam 1 mg p.o. daily, Kl onopin 2 mg at night, Plavix 75 mg p.o. daily, Colace 300 mg p.o. at bedtime, Neurontin 300 mg p.o. q . 8, Humalog before meals and at bedtime, lactobacillus 1 capsule twice daily, Percocet 5/325 one tab let q. 4 p.r.n. for moderate pain, oxycodone/acetaminophen 2 tablets p.o. q. 4 p.r.n. for pain, sever e, Protonix 40 daily, tobramycin sulfate 120 mg in sodium chloride 100 mg daily. IMPRESSION: Sepsis, catheter associated, urinary tract infection, culture positive for gram-negative rods, colony count more than 400,000 CFU, sensitivity pending. Blood culture no growth reported. M ental status improved compared to baseline. Chronic pain syndrome, on narcotics. Appreciate pain ma nagement recommendation. Follow same. History of anxiety, depression. Awaiting to be seen by psych iatric consult. Continue clonazepam. Diabetes mellitus type 2. Continue 1800 calorie diabetic diet . Continue lispro before meals and at bedtime per protocol. Continue cefepime and tobramycin. Flee t enema for constipation. Continue Neurontin and Klonopin. Edgar Knight MD cc: [id number] TT: 02/05/2017 14:51:01 va
[2017-02-05] MEDS: Morphine 15 mg Immediate Release Tab PO PRN (17:29)
[2017-02-05] MEDS: oxyCODONE 10 mg ER Tab (oxyCONTIN) PO SCH (20:19)
[2017-02-06] MEDS: Morphine 15 mg Immediate Release Tab PO PRN ×4 (00:22→18:21)
[2017-02-06 07:43] LABS: ALB/GLOB RATIO 0.8 (1.0-2.1); ALKALINE PHOSPHATASE 163 U/L (38-126); ALT/SGPT 37 U/L (21-72); AST/SGOT 33 U/L (17-59); BLOOD UREA NITROGEN 10 mg/dl (9-20); CARBON DIOXIDE 22 mmol/L (22-30); CHLORIDE 106 mmol/L (98-107); GFR AFRICAN-AMERICAN > 60; GLUCOSE,RANDOM 138 mg/dL (75-110); POTASSIUM 3.3 MMOL/L (3.6-5.0); SODIUM 145 mmol/l (132-148); TOTAL PROTEIN 8.2 G/DL (6.3-8.2)
--- NOTE | 2017-02-06 08:47 | PN ---
DATE: 02/05/2017 The patient is seen and examined. Interim events noted. Consults noted and appreciated. Intensivis t intervention noted and appreciated. The patient remains in intensive care unit. Awake, responsive , back to his baseline ____. No specific complaints of chest pain or shortness of breath, has chroni c pain, which is controlled on current pain management. PHYSICAL EXAMINATION: GENERAL: The patient is in no acute distress. VITAL SIGNS: Stable. HEART: S1, S2 normal, regular. LUNGS: Good bilateral air entry. ABDOMEN: Soft, nontender. EXTREMITIES: No calf swelling, no tenderness, no acute ischemia. CENTRAL NERVOUS SYSTEM: Essentially unchanged. DIAGNOSTIC DATA: Available diagnostic data reviewed. Telemetry monitoring does not reveal significa nt arrhythmia. Overall, the patient's general medical condition is stable and improving. Culture shows positive for urine culture, ____ and sensitivity is not back yet. PLAN: As ordered. Phuc Goldberg MD cc: [id number] TT: 02/06/2017 08:47:19 Confirmation # [id number] Dictation # [id number] christian
[2017-02-06] MEDS: Insulin Lispro (humaLOG) 100 Units/ml Inj SC SCH ×4 (09:20→22:43)
[2017-02-06] MEDS: Lactobacillus Acidophilus 500 MU Cap PO SCH ×2 (09:22→17:30)
[2017-02-06] MEDS: oxyCODONE 10 mg ER Tab (oxyCONTIN) PO SCH ×2 (09:22→21:06)
[2017-02-06] MEDS: MOVANTIK 25MG TABLET PO SCH (09:23)
[2017-02-06] MEDS: Pantoprazole 20 mg EC Tab PO SCH (09:23)
[2017-02-06] MEDS: Cefepime 2 GM in Sodium Chloride 0.9% 100 ML IVPB SCH ×2 (09:24→21:15)
[2017-02-06 09:33] LABS: HEMATOCRIT 40.5 % (35.0-51.0); MEAN CELL VOLUME 91.8 fl (80.0-94.0); MEAN CORPUSCULAR HEMOGLOBIN 30.9 pg (27.0-31.0); MEAN CORPUSCULAR HGB CONC 33.7 g/dL (33.0-37.0); RED CELL DISTRIBUTION WIDTH 13.5 % (11.5-14.5); WHITE BLOOD COUNT 16.2 K/uL (4.8-10.8)
[2017-02-06] MEDS ORDERED: Potassium Chloride 20 mEq ER Tab PO ONE (10:45)
[2017-02-06] MEDS: Potassium CL 10mEq/100ml 100 ML IVPB SCH ×3 (11:27→13:57)
--- NOTE | 2017-02-06 16:16 | CP.CCUPN ---
CCU Subjective - Physician Review Subjective (Free Text): [employer] PROGRESS NOTE Patient examined, interim events reviewed: Awake and alert, no distress, off 1:1 supervision, no new ideations, still has intermittent fevers up to 101.2F this AM, denies any chills or diaphoresis, no abdominal or pelvic discomfort. Tolerated PO KCL and R neck IJV TLC to be removed. T= Afebrile now, no fever spikes, BP 105/76, HR 92, RR 14, SPo2 97% on RA, 24H I /O's = neg 740mL. ROS: as above, no other obtainable pertinent negs or positives on 10 system review. PMFSH: all nursing and historical notes reviewed, no new pertinent data relevant to current problems. No other distress noted: EXAM- HEENT: no icterus, pupils equal and reactive NECK: no visible JVD, supple, carotids equal upstroke bilat/no bruits CHEST: decreased BS bases, no wheezes audible HEART: regular, distant, S1S2, no murmur audible, no rubs. ABD: soft, no increased distention, no focal tenderness, no HSM. BS hypoactive , EXT: trace edema with no increase in leg edema, no peripheral/ digital cyanosis, no calf tenderness or palpable cords, distal pulses intact and symmetrical NEURO: R hemiplegia SKIN: no rashes LABS: WBC= 16.2 HGB= 13.6 PLTs= 258K Na= 145 K= 3.3 HCO3= 22 BUN/Cr= 10/1.0 BS= 138 Major problems: 1. Klebsiella UTI from chronic indwelling Owens catheter with Sepsis /Shock 2. Suicide Attempt 3. Chronic pain syndrome 4. h/o CVA with R hemiplegia PLAN: 1. IV abx with Klebsiella coverage. Existing Owens was changed at [facility] prior to admission to [facility]. 2. IVF hydration 3. K repletion, check Mag / Phos 4. Psych 1:1 clearance noted. 5. Clarify Advance Directives (DNI status).
[2017-02-06] MEDS ORDERED: Sodium Chloride 0.9% 1,000 ML IV SCH (18:30)
[2017-02-07] MEDS: Sodium Chloride 0.9% 1,000 ML IV SCH (01:05)
[2017-02-07] MEDS: Morphine 15 mg Immediate Release Tab PO PRN ×3 (03:37→20:23)
[2017-02-07 07:55] LABS: HEMATOCRIT 38.3 % (35.0-51.0); MEAN CELL VOLUME 91.9 fl (80.0-94.0); MEAN CORPUSCULAR HEMOGLOBIN 30.7 pg (27.0-31.0); MEAN CORPUSCULAR HGB CONC 33.4 g/dL (33.0-37.0); RED CELL DISTRIBUTION WIDTH 13.2 % (11.5-14.5); WHITE BLOOD COUNT 7.1 K/uL (4.8-10.8)
[2017-02-07 08:18] LABS: ALB/GLOB RATIO 0.8 (1.0-2.1); ALKALINE PHOSPHATASE 125 U/L (38-126); ALT/SGPT 30 U/L (21-72); AST/SGOT 25 U/L (17-59); BILIRUBIN,TOTAL 0.7 mg/dl (0.2-1.3); BLOOD UREA NITROGEN 14 mg/dl (9-20); CALCIUM 9.8 mg/dL (8.4-10.2); CARBON DIOXIDE 23 mmol/L (22-30); CHLORIDE 108 mmol/L (98-107); GFR AFRICAN-AMERICAN > 60; GLUCOSE,RANDOM 163 mg/dL (75-110); POTASSIUM 3.8 MMOL/L (3.6-5.0); SODIUM 146 mmol/l (132-148); TOTAL PROTEIN 7.5 G/DL (6.3-8.2)
--- NOTE | 2017-02-07 09:06 | CP.PCM.PN ---
Subjective - Date & Time of Evaluation Date of Evaluation: 02/07/17 Time of Evaluation: 08:15 - Subjective Subjective: Patient has been transferred to regular floor. Pain is controlled but the patient complains that the dosage isn't enough. He had been on a higher dose at home prior to admission. He denies side effects from either the Oxycontin or the MSIR. The pain remains the same. Objective - Vital Signs/Intake and Output Vital Signs (last 24 hours): Temp Pulse Resp BP Pulse Ox 97.6 F 70 18 97/64 L 97 02/07/17 07:55 02/07/17 07:55 02/07/17 07:55 02/07/17 07:55 02/07/17 07:55 - Medications Medications: Current Medications Acetaminophen (Tylenol 325mg Tab) 650 mg PO Q4 PRN PRN Reason: Fever >100.4 F Last Admin: 02/06/17 06:59 Dose: 650 mg Atorvastatin Calcium (Lipitor) 80 mg PO HS [facility] Last Admin: 02/06/17 21:09 Dose: 80 mg Bisacodyl (Dulcolax) 10 mg [place] DAILY [facility] Last Admin: 02/06/17 09:20 Dose: Not Given Clonazepam (Klonopin) 1 mg PO DAILY [facility] Last Admin: 02/06/17 09:22 Dose: 1 mg Clonazepam (Klonopin) 2 mg PO HS [facility] Last Admin: 02/06/17 21:06 Dose: 2 mg Clopidogrel Bisulfate (Plavix) 75 mg PO DAILY [facility] Last Admin: 02/06/17 09:24 Dose: 75 mg Docusate Sodium (Colace) 300 mg PO HS PRN PRN Reason: Constipation Last Admin: 02/06/17 00:23 Dose: 300 mg Gabapentin (Neurontin) 300 mg PO Q8 [facility] Last Admin: 02/07/17 01:01 Dose: 300 mg Home Med (Patient's Own Medication) 1 unit PO QAM [facility] Last Admin: 02/06/17 09:23 Dose: 1 unit Cefepime HCl 2 gm/ Sodium (Chloride) 100 mls @ 100 mls/hr IVPB Q12 [facility] Last Admin: 02/06/17 21:15 Dose: 100 mls/hr Tobramycin Sulfate 120 mg/ (Sodium Chloride) 103 mls @ 100 mls/hr IVPB Q24H [facility] Last Admin: 02/06/17 17:31 Dose: 100 mls/hr Sodium Chloride (Sodium Chloride 0.9%) 1,000 mls @ 50 mls/hr IV .Q20H [facility] Stop: 02/07/17 18:31 Last Admin: 02/07/17 03:34 Dose: Not Given Insulin Human Lispro (Humalog) 0 units SC ACHS [facility] PRN Reason: Protocol Last Admin: 02/06/17 22:43 Dose: Not Given Lactobacillus Acidophilus (Bacid Acidophilus) 1 cap PO BID [facility] Last Admin: 02/06/17 17:30 Dose: 1 cap Morphine Sulfate (Morphine Immediate Release Tab) 15 mg PO Q4 PRN PRN Reason: Pain, moderate (4-7) Last Admin: 02/07/17 01:04 Dose: 15 mg Morphine Sulfate (Morphine Immediate Release Tab) 30 mg PO Q4 PRN PRN Reason: Pain, severe (8-10) Last Admin: 02/07/17 03:37 Dose: 30 mg Oxycodone HCl (Oxycontin Extended Release Tab) 30 mg PO Q12 [facility] Stop: 02/08/17 21:01 Last Admin: 02/06/17 21:06 Dose: 30 mg Pantoprazole Sodium (Protonix Ec Tab) 20 mg PO DAILY [facility] Last Admin: 02/06/17 09:23 Dose: 20 mg Trazodone HCl (Desyrel) 150 mg PO HS [facility] Last Admin: 02/06/17 22:43 Dose: 150 mg - Labs Labs: 02/07/17 05:35 02/07/17 05:35 - Cardiovascular Exam Cardiovascular Exam: REGULAR RHYTHM - GI/Abdominal Exam GI & Abdominal Exam: Soft Assessment and Plan (1) Sepsis Assessment & Plan: 61 yo man w/ chronic central pain s/p CVA, is clinically improving after urosepsis. - increase Oxycontin to 30mg q8h - continue MSIR and neurontin Status: Acute
[2017-02-07] MEDS: Insulin Lispro (humaLOG) 100 Units/ml Inj SC SCH ×4 (09:07→22:02)
[2017-02-07] MEDS: Lactobacillus Acidophilus 500 MU Cap PO SCH ×2 (09:09→16:24)
[2017-02-07] MEDS: MOVANTIK 25MG TABLET PO SCH (09:10)
[2017-02-07] MEDS: Pantoprazole 20 mg EC Tab PO SCH (09:10)
[2017-02-07] MEDS: oxyCODONE 10 mg ER Tab (oxyCONTIN) PO SCH ×3 (09:11→16:55)
[2017-02-07] MEDS: Cefepime 2 GM in Sodium Chloride 0.9% 100 ML IVPB SCH ×2 (09:15→21:06)
--- NOTE | 2017-02-07 14:40 | CP.PCM.PN ---
<IssacJosé Manuela - Last Filed: 02/07/17 14:43> Subjective - Date & Time of Evaluation Date of Evaluation: 02/07/17 Time of Evaluation: 08:10 - Subjective Subjective: Pt seen and examined at bedside, states he does not want to go to rehab, he wants to go home and before he goes home he would like to see pain management for medications. Does not have any other complaints otherwise Objective - Vital Signs/Intake and Output Vital Signs (last 24 hours): Temp Pulse Resp BP Pulse Ox 97.6 F 70 18 97/64 L 97 02/07/17 07:55 02/07/17 07:55 02/07/17 07:55 02/07/17 07:55 02/07/17 07:55 - Medications Medications: Current Medications Acetaminophen (Tylenol 325mg Tab) 650 mg PO Q4 PRN PRN Reason: Fever >100.4 F Last Admin: 02/06/17 06:59 Dose: 650 mg Atorvastatin Calcium (Lipitor) 80 mg PO HS [facility] Last Admin: 02/06/17 21:09 Dose: 80 mg Bisacodyl (Dulcolax) 10 mg [place] DAILY [facility] Last Admin: 02/07/17 09:30 Dose: Not Given Clonazepam (Klonopin) 1 mg PO DAILY [facility] Last Admin: 02/07/17 09:09 Dose: 1 mg Clonazepam (Klonopin) 2 mg PO HS [facility] Last Admin: 02/06/17 21:06 Dose: 2 mg Clopidogrel Bisulfate (Plavix) 75 mg PO DAILY [facility] Last Admin: 02/07/17 09:09 Dose: 75 mg Docusate Sodium (Colace) 300 mg PO HS PRN PRN Reason: Constipation Last Admin: 02/06/17 00:23 Dose: 300 mg Gabapentin (Neurontin) 300 mg PO Q8 [facility] Last Admin: 02/07/17 09:09 Dose: 300 mg Home Med (Patient's Own Medication) 1 unit PO QAM [facility] Last Admin: 02/07/17 09:10 Dose: 1 unit Cefepime HCl 2 gm/ Sodium (Chloride) 100 mls @ 100 mls/hr IVPB Q12 [facility] Last Admin: 02/07/17 09:15 Dose: 100 mls/hr Tobramycin Sulfate 120 mg/ (Sodium Chloride) 103 mls @ 100 mls/hr IVPB Q24H [facility] Last Admin: 02/06/17 17:31 Dose: 100 mls/hr Sodium Chloride (Sodium Chloride 0.9%) 1,000 mls @ 50 mls/hr IV .Q20H [facility] Stop: 02/07/17 18:31 Last Admin: 02/07/17 03:34 Dose: Not Given Insulin Human Lispro (Humalog) 0 units SC ACHS [facility] PRN Reason: Protocol Last Admin: 02/07/17 11:50 Dose: Not Given Lactobacillus Acidophilus (Bacid Acidophilus) 1 cap PO BID [facility] Last Admin: 02/07/17 09:09 Dose: 1 cap Morphine Sulfate (Morphine Immediate Release Tab) 15 mg PO Q4 PRN PRN Reason: Pain, moderate (4-7) Last Admin: 02/07/17 01:04 Dose: 15 mg Morphine Sulfate (Morphine Immediate Release Tab) 30 mg PO Q4 PRN PRN Reason: Pain, severe (8-10) Last Admin: 02/07/17 13:44 Dose: 30 mg Oxycodone HCl (Oxycontin Extended Release Tab) 30 mg PO Q8 [facility] Stop: 02/08/17 01:01 Last Admin: 02/07/17 09:54 Dose: 30 mg Pantoprazole Sodium (Protonix Ec Tab) 20 mg PO DAILY [facility] Last Admin: 02/07/17 09:10 Dose: 20 mg Trazodone HCl (Desyrel) 150 mg PO HS [facility] Last Admin: 02/06/17 22:43 Dose: 150 mg - Labs Labs: 02/07/17 05:35 02/07/17 05:35 - Constitutional Appears: Non-toxic, No Acute Distress - Head Exam Head Exam: NORMOCEPHALIC - ENT Exam ENT Exam: Mucous Membranes Moist - Respiratory Exam Respiratory Exam: Clear to Ausculation Bilateral, NORMAL BREATHING PATTERN. absent: Rhonchi, Wheezes - Cardiovascular Exam Cardiovascular Exam: REGULAR RHYTHM, +S1, +S2 - GI/Abdominal Exam GI & Abdominal Exam: Soft, Normal Bowel Sounds - Neurological Exam Neurological Exam: Awake Assessment and Plan - Assessment and Plan (Free Text) Assessment: 61 years old bed bound male with hx of DM II; Anemia; Suicide Ideation, CVA x3 with sequelas of right side paralysis admitted for urosepsis Plan: #.Urosepsis -Catheter associated UTI ID following continue with antibiotics #. DM Uncontrolled - Diabetic diet - Insulin Lispro sliding scale according to accucheck #. Anemia- resolved - Monitor #. Hx of Old CVA with right side weakness - Social service consult for [facility] placement -Apixaban/Crestor - OT/PT - seen by PT, recommendations appreciated #. Gastritis - Pantoprazole #. DVT prophylaxis with Apixan Disposition: medically stable for discharge, awaiting oral antibiotic recommendation from ID, possible discharge in the morning <Phuc Goldberg - Last Filed: 02/13/17 11:59> Objective - Vital Signs/Intake and Output Vital Signs (last 24 hours): Temp Pulse Resp BP Pulse Ox 97.7 F 80 20 120/70 93 L 02/08/17 08:43 02/08/17 08:43 02/08/17 08:43 02/08/17 08:43 02/08/17 08:43 - Labs Labs: 02/07/17 05:35 02/07/17 05:35 Assessment and Plan - Assessment and Plan (Free Text) Assessment: Patient was personally seen and examined by me in rounds with residents. Available labs and diagnostic data reviewed. Case, Patient's condition and management plan discussed with residents in rounds. Agree with resident's documentation. Plan: As ordered. Phuc Goldberg MD
[2017-02-07 21:37] VITALS: RESP 20
[2017-02-08] MEDS: oxyCODONE 10 mg ER Tab (oxyCONTIN) PO SCH (01:09)
[2017-02-08] MEDS: Insulin Lispro (humaLOG) 100 Units/ml Inj SC SCH (08:21)
[2017-02-08 08:43] VITALS: BP 120/70; PULSE 80; TEMP 97.7; O2SAT 93
[2017-02-08] MEDS: Lactobacillus Acidophilus 500 MU Cap PO SCH (08:55)
[2017-02-08] MEDS: Pantoprazole 20 mg EC Tab PO SCH (08:57)
[2017-02-08] MEDS ORDERED: oxyCODONE 40 mg ER Tab (oxyCONTIN) PO SCH (09:00)
[2017-02-08] MEDS: MOVANTIK 25MG TABLET PO SCH (09:06)
[2017-02-08] MEDS: Cefepime 2 GM in Sodium Chloride 0.9% 100 ML IVPB SCH (09:09)
--- NOTE | 2017-02-08 13:42 | CP.PCM.DIS ---
<IssacMunira - Last Filed: 02/08/17 13:39> Provider - Provider Date of Admission: 02/03/17 20:57 Attending physician: Phuc Goldberg MD Time Spent in preparation of Discharge (in minutes): 30 Diagnosis - Discharge Diagnosis (1) Sepsis Status: Acute (2) UTI (lower urinary tract infection) Status: Acute Hospital Course - Lab Results Lab Results: Micro Results 02/06/17 13:18 Blood-Thru Central Line Blood Culture - Preliminary NO GROWTH AFTER 48 HOURS 02/06/17 12:00 Blood-Venous Blood Culture - Preliminary NO GROWTH AFTER 48 HOURS 02/06/17 13:19 Naris MRSA Culture (Admit) - Final MRSA NOT DETECTED 02/04/17 07:08 Nose MRSA Culture (Admit) - Final MRSA NOT DETECTED Most Recent Lab Values WBC 7.1 K/uL (4.8-10.8) D 02/07/17 05:35 RBC 4.17 Mil/uL (4.40-5.90) L 02/07/17 05:35 Hgb 12.8 g/dL (12.0-18.0) 02/07/17 05:35 Hct 38.3 % (35.0-51.0) 02/07/17 05:35 MCV 91.9 fl (80.0-94.0) 02/07/17 05:35 MCH 30.7 pg (27.0-31.0) 02/07/17 05:35 MCHC 33.4 g/dL (33.0-37.0) 02/07/17 05:35 RDW 13.2 % (11.5-14.5) 02/07/17 05:35 Plt Count 188 K/uL (130-400) 02/07/17 05:35 MPV 6.9 fl (7.2-11.7) L 02/04/17 06:45 Neut % (Auto) 77.8 % (50.0-75.0) H 02/04/17 06:45 Lymph % (Auto) 14.5 % (20.0-40.0) L 02/04/17 06:45 Whiteside % (Auto) 6.3 % (0.0-10.0) 02/04/17 06:45 Eos % (Auto) 1.1 % (0.0-4.0) 02/04/17 06:45 Baso % (Auto) 0.3 % (0.0-2.0) 02/04/17 06:45 Neut # 8.0 K/uL (1.8-7.0) H 02/04/17 06:45 Lymph # 1.5 K/uL (1.0-4.3) 02/04/17 06:45 Whiteside # 0.6 K/uL (0.0-0.8) 02/04/17 06:45 Eos # 0.1 K/uL (0.0-0.7) 02/04/17 06:45 Baso # 0.0 K/uL (0.0-0.2) 02/04/17 06:45 Neutrophils % (Manual) 87 % (42-75) H 02/03/17 19:20 Band Neutrophils % 1 % (0-2) 02/03/17 19:20 Lymphocytes % (Manual) 8 % (20-50) L 02/03/17 19:20 Monocytes % (Manual) 4 % (0-10) 02/03/17 19:20 Platelet Estimate Normal (NORMAL) 02/03/17 19:20 Anisocytosis (manual) Slight 02/03/17 19:20 Macrocytosis (manual) Slight 02/03/17 19:20 pCO2 42 mm/Hg (35-45) 02/03/17 23:47 pO2 59 mm/Hg (80-100) L 02/03/17 23:47 HCO3 21.8 mmol/L (21-28) 02/03/17 23:47 ABG pH 7.33 (7.35-7.45) L 02/03/17 23:47 ABG Total CO2 23.4 mmol/L (22-28) 02/03/17 23:47 ABG O2 Saturation 97.0 % (95-98) 02/03/17 23:47 ABG Base Excess -3.7 mmol/L (-2.0-3.0) L 02/03/17 23:47 Emil Test Yes 02/03/17 23:47 ABG Potassium 3.7 mmol/L (3.6-5.2) 02/03/17 23:47 VBG pH 7.26 (7.32-7.43) L 02/03/17 20:38 VBG pCO2 59 mmHg (40-60) 02/03/17 20:38 VBG HCO3 21.7 mmol/L 02/03/17 20:38 VBG Total CO2 28.3 mmol/L (22-28) H 02/03/17 20:38 VBG O2 Sat (Calc) 43.3 % (40-65) 02/03/17 20:38 VBG Base Excess -1.7 mmol/L (0.0-2.0) L 02/03/17 20:38 VBG Potassium 4.0 mmol/L (3.6-5.2) 02/03/17 20:38 A-a O2 Difference 117.0 mm/Hg 02/03/17 23:47 Sodium 137.0 mmol/L (132-148) 02/03/17 23:47 Chloride 114.0 mmol/L (98-107) H 02/03/17 23:47 Glucose 247 mg/dL (75-110) H 02/03/17 23:47 Lactate 1.1 mmol/L (0.7-2.1) 02/03/17 23:47 Vent Mode N/c 02/03/17 23:47 FiO2 32.0 % 02/03/17 23:47 Blood Gas Comments Lactate 3.2 02/03/17 20:38 Crit Value Called To vy Rodríguez 02/03/17 20:38 Crit Value Called By Brittney 02/03/17 20:38 Crit Value Read Back Y 02/03/17 20:38 Blood Gas Notified Time 1 02/03/17 23:47 Sodium 146 mmol/l (132-148) 02/07/17 05:35 Potassium 3.8 MMOL/L (3.6-5.0) 02/07/17 05:35 Chloride 108 mmol/L (98-107) H 02/07/17 05:35 Carbon Dioxide 23 mmol/L (22-30) 02/07/17 05:35 Anion Gap 19 (10-20) 02/07/17 05:35 BUN 14 mg/dl (9-20) 02/07/17 05:35 Creatinine 1.1 mg/dL (0.8-1.5) 02/07/17 05:35 Est GFR ( Amer) > 60 02/07/17 05:35 Est GFR (Non-Af Amer) > 60 02/07/17 05:35 POC Glucose (mg/dL) 164 mg/dL (65-110) H 02/08/17 11:28 Random Glucose 163 mg/dL (75-110) H 02/07/17 05:35 Hemoglobin A1c 8.4 % (4.2-6.5) H D 02/04/17 06:45 Lactic Acid 0.9 MMOL/L (0.7-2.1) 02/04/17 07:06 Calcium 9.8 mg/dL (8.4-10.2) 02/07/17 05:35 Total Bilirubin 0.7 mg/dl (0.2-1.3) 02/07/17 05:35 Direct Bilirubin 0.5 mg/ml (0.0-0.4) H 02/03/17 22:18 AST 25 U/L (17-59) 02/07/17 05:35 ALT 30 U/L (21-72) 02/07/17 05:35 Alkaline Phosphatase 125 U/L (38-126) 02/07/17 05:35 Total Protein 7.5 G/DL (6.3-8.2) 02/07/17 05:35 Albumin 3.3 g/dL (3.5-5.0) L 02/07/17 05:35 Globulin 4.2 gm/dL (2.2-3.9) H 02/07/17 05:35 Albumin/Globulin Ratio 0.8 (1.0-2.1) L 02/07/17 05:35 Lipase 119 U/L (23-300) 02/03/17 22:18 Vitamin B12 453 pg/mL (239-931) 02/04/17 06:45 Folate 7.1 ng/mL 02/04/17 06:45 Arterial Blood Potassium 3.7 mmol/L (3.6-5.2) 02/03/17 23:47 Venous Blood Potassium 4.0 mmol/L (3.6-5.2) 02/03/17 20:38 Urine Color Yellow (YELLOW) 02/03/17 19:20 Urine Clarity Slighty-cloudy (Clear) 02/03/17 19:20 Urine pH 6.0 (5.0-8.0) 02/03/17 19:20 Ur Specific [place]ura 1.020 (1.003-1.030) 02/03/17 19:20 Urine Protein 100 mg/dL (NEGATIVE) 02/03/17 19:20 Urine Glucose (UA) Neg mg/dL (Normal) 02/03/17 19:20 Urine Ketones Negative mg/dL (NEGATIVE) 02/03/17 19:20 Urine Blood Moderate (NEGATIVE) 02/03/17 19:20 Urine Nitrate Negative (NEGATIVE) 02/03/17 19:20 Urine Bilirubin Negative (NEGATIVE) 02/03/17 19:20 Urine Urobilinogen 0.2-1.0 mg/dL (0.2-1.0) 02/03/17 19:20 Ur Leukocyte Esterase Large John/uL (Negative) 02/03/17 19:20 Urine RBC (Auto) 24 /hpf (0-3) H 02/03/17 19:20 Urine Microscopic WBC 179 /hpf (0-5) H 02/03/17 19:20 Ur Squamous Epith Cells < 1 /hpf (0-5) 02/03/17 19:20 Urine Bacteria Many (<OCC) H 02/03/17 19:20 Salicylates < 1.0 mg/dl 02/03/17 19:20 Urine Opiates Screen Positive (NEGATIVE) H 02/03/17 19:20 Urine Methadone Screen Negative (NEGATIVE) 02/03/17 19:20 Acetaminophen < 10.0 ug/ml (10.0-30.0) L 02/03/17 23:20 Ur Barbiturates Screen Negative (NEGATIVE) 02/03/17 19:20 Ur Phencyclidine Scrn Negative (NEGATIVE) 02/03/17 19:20 Ur Amphetamines Screen Negative (NEGATIVE) 02/03/17 19:20 U Benzodiazepines Scrn Negative (NEGATIVE) 02/03/17 19:20 U Oth Cocaine Metabols Negative (NEGATIVE) 02/03/17 19:20 U Cannabinoids Screen Negative (NEGATIVE) 02/03/17 19:20 Alcohol, Quantitative < 10 mg/dl (0-10) 02/03/17 19:20 - Hospital Course Hospital Course: Pt was admitted for urosepsis was in ICU for a couple of day then downgraded to med-surg, remain stable through stay and is now being discharged for routine follow up Discharge Exam - Head Exam Head Exam: NORMOCEPHALIC - Eye Exam Eye Exam: Normal appearance - ENT Exam ENT Exam: Mucous Membranes Moist - Respiratory Exam Respiratory Exam: NORMAL BREATHING PATTERN - Cardiovascular Exam Cardiovascular Exam: REGULAR RHYTHM, +S1 - GI/Abdominal Exam GI & Abdominal Exam: Normal Bowel Sounds, Soft - Neurological Exam Neurological exam: Alert, Oriented x3 Discharge Plan - Discharge Medications Prescriptions: Ciprofloxacin HCl [Cipro] 500 mg PO BID #10 tablet Docusate [Colace] 300 mg PO HS PRN #30 cap PRN Reason: Constipation Atorvastatin [Lipitor] 80 mg PO HS #30 tab Morphine [Morphine Immediate Release Tab] 30 mg PO Q4 PRN #14 tab PRN Reason: Pain, Severe (8-10) Morphine [Morphine Immediate Release Tab] 15 mg PO Q4 PRN #14 tab PRN Reason: Pain, Moderate (4-7) oxyCODONE [oxyCONTIN Extended Release Tab] 40 mg PO Q12 #8 tab - Follow Up Plan Condition: STABLE Disposition: HOME/ ROUTINE Additional Instructions: patient cleared for discharge to Home today by start Cipro 500 mg po bid x 5 days as per pt. will f/u with PMD in 1 week <Phuc Goldberg - Last Filed: 02/13/17 12:00> Provider - Provider Date of Admission: 02/03/17 20:57 Attending physician: Phuc Goldberg MD Hospital Course - Lab Results Lab Results: Micro Results 02/06/17 13:18 Blood-Thru Central Line Blood Culture - Final NO GROWTH AFTER 5 DAYS 02/06/17 13:18 Blood-Thru Central Line Gram Stain - Final TEST NOT PERFORMED 02/06/17 12:00 Blood-Venous Blood Culture - Final NO GROWTH AFTER 5 DAYS 02/06/17 12:00 Blood-Venous Gram Stain - Final TEST NOT PERFORMED 02/06/17 13:19 Naris MRSA Culture (Admit) - Final MRSA NOT DETECTED 02/04/17 07:08 Nose MRSA Culture (Admit) - Final MRSA NOT DETECTED Most Recent Lab Values WBC 7.1 K/uL (4.8-10.8) D 02/07/17 05:35 RBC 4.17 Mil/uL (4.40-5.90) L 02/07/17 05:35 Hgb 12.8 g/dL (12.0-18.0) 02/07/17 05:35 Hct 38.3 % (35.0-51.0) 02/07/17 05:35 MCV 91.9 fl (80.0-94.0) 02/07/17 05:35 MCH 30.7 pg (27.0-31.0) 02/07/17 05:35 MCHC 33.4 g/dL (33.0-37.0) 02/07/17 05:35 RDW 13.2 % (11.5-14.5) 02/07/17 05:35 Plt Count 188 K/uL (130-400) 02/07/17 05:35 MPV 6.9 fl (7.2-11.7) L 02/04/17 06:45 Neut % (Auto) 77.8 % (50.0-75.0) H 02/04/17 06:45 Lymph % (Auto) 14.5 % (20.0-40.0) L 02/04/17 06:45 Whiteside % (Auto) 6.3 % (0.0-10.0) 02/04/17 06:45 Eos % (Auto) 1.1 % (0.0-4.0) 02/04/17 06:45 Baso % (Auto) 0.3 % (0.0-2.0) 02/04/17 06:45 Neut # 8.0 K/uL (1.8-7.0) H 02/04/17 06:45 Lymph # 1.5 K/uL (1.0-4.3) 02/04/17 06:45 Whiteside # 0.6 K/uL (0.0-0.8) 02/04/17 06:45 Eos # 0.1 K/uL (0.0-0.7) 02/04/17 06:45 Baso # 0.0 K/uL (0.0-0.2) 02/04/17 06:45 Neutrophils % (Manual) 87 % (42-75) H 02/03/17 19:20 Band Neutrophils % 1 % (0-2) 02/03/17 19:20 Lymphocytes % (Manual) 8 % (20-50) L 02/03/17 19:20 Monocytes % (Manual) 4 % (0-10) 02/03/17 19:20 Platelet Estimate Normal (NORMAL) 02/03/17 19:20 Anisocytosis (manual) Slight 02/03/17 19:20 Macrocytosis (manual) Slight 02/03/17 19:20 pCO2 42 mm/Hg (35-45) 02/03/17 23:47 pO2 59 mm/Hg (80-100) L 02/03/17 23:47 HCO3 21.8 mmol/L (21-28) 02/03/17 23:47 ABG pH 7.33 (7.35-7.45) L 02/03/17 23:47 ABG Total CO2 23.4 mmol/L (22-28) 02/03/17 23:47 ABG O2 Saturation 97.0 % (95-98) 02/03/17 23:47 ABG Base Excess -3.7 mmol/L (-2.0-3.0) L 02/03/17 23:47 Emil Test Yes 02/03/17 23:47 ABG Potassium 3.7 mmol/L (3.6-5.2) 02/03/17 23:47 VBG pH 7.26 (7.32-7.43) L 02/03/17 20:38 VBG pCO2 59 mmHg (40-60) 02/03/17 20:38 VBG HCO3 21.7 mmol/L 02/03/17 20:38 VBG Total CO2 28.3 mmol/L (22-28) H 02/03/17 20:38 VBG O2 Sat (Calc) 43.3 % (40-65) 02/03/17 20:38 VBG Base Excess -1.7 mmol/L (0.0-2.0) L 02/03/17 20:38 VBG Potassium 4.0 mmol/L (3.6-5.2) 02/03/17 20:38 A-a O2 Difference 117.0 mm/Hg 02/03/17 23:47 Sodium 137.0 mmol/L (132-148) 02/03/17 23:47 Chloride 114.0 mmol/L (98-107) H 02/03/17 23:47 Glucose 247 mg/dL (75-110) H 02/03/17 23:47 Lactate 1.1 mmol/L (0.7-2.1) 02/03/17 23:47 Vent Mode N/c 02/03/17 23:47 FiO2 32.0 % 02/03/17 23:47 Blood Gas Comments Lactate 3.2 02/03/17 20:38 Crit Value Called To vy Rodríguez 02/03/17 20:38 Crit Value Called By 203 02/03/17 20:38 Crit Value Read Back Y 02/03/17 20:38 Blood Gas Notified Time 1 02/03/17 23:47 Sodium 146 mmol/l (132-148) 02/07/17 05:35 Potassium 3.8 MMOL/L (3.6-5.0) 02/07/17 05:35 Chloride 108 mmol/L (98-107) H 02/07/17 05:35 Carbon Dioxide 23 mmol/L (22-30) 02/07/17 05:35 Anion Gap 19 (10-20) 02/07/17 05:35 BUN 14 mg/dl (9-20) 02/07/17 05:35 Creatinine 1.1 mg/dL (0.8-1.5) 02/07/17 05:35 Est GFR ( Amer) > 60 02/07/17 05:35 Est GFR (Non-Af Amer) > 60 02/07/17 05:35 POC Glucose (mg/dL) 164 mg/dL (65-110) H 02/08/17 11:28 Random Glucose 163 mg/dL (75-110) H 02/07/17 05:35 Hemoglobin A1c 8.4 % (4.2-6.5) H D 02/04/17 06:45 Lactic Acid 0.9 MMOL/L (0.7-2.1) 02/04/17 07:06 Calcium 9.8 mg/dL (8.4-10.2) 02/07/17 05:35 Total Bilirubin 0.7 mg/dl (0.2-1.3) 02/07/17 05:35 Direct Bilirubin 0.5 mg/ml (0.0-0.4) H 02/03/17 22:18 AST 25 U/L (17-59) 02/07/17 05:35 ALT 30 U/L (21-72) 02/07/17 05:35 Alkaline Phosphatase 125 U/L (38-126) 02/07/17 05:35 Total Protein 7.5 G/DL (6.3-8.2) 02/07/17 05:35 Albumin 3.3 g/dL (3.5-5.0) L 02/07/17 05:35 Globulin 4.2 gm/dL (2.2-3.9) H 02/07/17 05:35 Albumin/Globulin Ratio 0.8 (1.0-2.1) L 02/07/17 05:35 Lipase 119 U/L (23-300) 02/03/17 22:18 Vitamin B12 453 pg/mL (239-931) 02/04/17 06:45 Folate 7.1 ng/mL 02/04/17 06:45 Arterial Blood Potassium 3.7 mmol/L (3.6-5.2) 02/03/17 23:47 Venous Blood Potassium 4.0 mmol/L (3.6-5.2) 02/03/17 20:38 Urine Color Yellow (YELLOW) 02/03/17 19:20 Urine Clarity Slighty-cloudy (Clear) 02/03/17 19:20 Urine pH 6.0 (5.0-8.0) 02/03/17 19:20 Ur Specific [place] 1.020 (1.003-1.030) 02/03/17 19:20 Urine Protein 100 mg/dL (NEGATIVE) 02/03/17 19:20 Urine Glucose (UA) Neg mg/dL (Normal) 02/03/17 19:20 Urine Ketones Negative mg/dL (NEGATIVE) 02/03/17 19:20 Urine Blood Moderate (NEGATIVE) 02/03/17 19:20 Urine Nitrate Negative (NEGATIVE) 02/03/17 19:20 Urine Bilirubin Negative (NEGATIVE) 02/03/17 19:20 Urine Urobilinogen 0.2-1.0 mg/dL (0.2-1.0) 02/03/17 19:20 Ur Leukocyte Esterase Large John/uL (Negative) 02/03/17 19:20 Urine RBC (Auto) 24 /hpf (0-3) H 02/03/17 19:20 Urine Microscopic WBC 179 /hpf (0-5) H 02/03/17 19:20 Ur Squamous Epith Cells < 1 /hpf (0-5) 02/03/17 19:20 Urine Bacteria Many (<OCC) H 02/03/17 19:20 Salicylates < 1.0 mg/dl 02/03/17 19:20 Urine Opiates Screen Positive (NEGATIVE) H 02/03/17 19:20 Urine Methadone Screen Negative (NEGATIVE) 02/03/17 19:20 Acetaminophen < 10.0 ug/ml (10.0-30.0) L 02/03/17 23:20 Ur Barbiturates Screen Negative (NEGATIVE) 02/03/17 19:20 Ur Phencyclidine Scrn Negative (NEGATIVE) 02/03/17 19:20 Ur Amphetamines Screen Negative (NEGATIVE) 02/03/17 19:20 U Benzodiazepines Scrn Negative (NEGATIVE) 02/03/17 19:20 U Oth Cocaine Metabols Negative (NEGATIVE) 02/03/17 19:20 U Cannabinoids Screen Negative (NEGATIVE) 02/03/17 19:20 Alcohol, Quantitative < 10 mg/dl (0-10) 02/03/17 19:20
== END 2017-02-08 12:00 | disposition home or self-care (01) | DRG 698 ==
LOC: H.ER 18:17 → H.EROBSV 19:24 → OBSVTOIN 20:57 → H.ERHOLD 21:22 → H.ICU/CCU 02-04 01:06 → H.MEDSURG1 02-06 18:43
PROVIDERS: ADMIT Internal Medicine; ATTEND Internal Medicine
DX: T83.511A Infection and inflammatory reaction due to indwelling urethral catheter, initial encounter (principal); A41.9 Sepsis, unspecified organism; R65.21 Severe sepsis with septic shock; G92 Toxic encephalopathy; F32.3 Major depressive disorder, single episode, severe with psychotic features; I69.351 Hemiplegia and hemiparesis following cerebral infarction affecting right dominant side; T40.2X2A Poisoning by other opioids, intentional self-harm, initial encounter; T42.6X2A Poisoning by other antiepileptic and sedative-hypnotic drugs, intentional self-harm, initial encounter; E11.40 Type 2 diabetes mellitus with diabetic neuropathy, unspecified; D63.8 Anemia in other chronic diseases classified elsewhere; E11.65 Type 2 diabetes mellitus with hyperglycemia; E78.00 Pure hypercholesterolemia, unspecified; E78.5 Hyperlipidemia, unspecified; G89.4 Chronic pain syndrome; I10 Essential (primary) hypertension; M19.90 Unspecified osteoarthritis, unspecified site; I95.89 Other hypotension; Y92.009 Unspecified place in unspecified non-institutional (private) residence as the place of occurrence of the external cause; Z74.01 Bed confinement status; N40.0 Benign prostatic hyperplasia without lower urinary tract symptoms; B96.1 Klebsiella pneumoniae [K. pneumoniae] as the cause of diseases classified elsewhere; Y84.6 Urinary catheterization as the cause of abnormal reaction of the patient, or of later complication, without mention of misadventure at the time of the procedure; K29.70 Gastritis, unspecified, without bleeding; R32 Unspecified urinary incontinence; F41.9 Anxiety disorder, unspecified

== ENCOUNTER 2017-05-09 17:28 | Inpatient (IN) | payer MEDICARE, MEDICAID ==
[~2017-05-09 17:28] MED LIST: Gentamicin 80mg/50ml NS 80 MG/50 ML BAG IVPB ONE
[2017-05-09 17:29] VITALS: BMI 25.8
[2017-05-09] MEDS ORDERED: Gentamicin 80 mg/2mL Inj. IVPB STA (17:59)
--- NOTE | 2017-05-09 18:28 | ED PDOC ---
HPI: Male Pain Time Seen by Provider: 05/09/17 17:40 Chief Complaint (Nursing): Male Genitourinary Chief Complaint (Provider): Penile bleeding History Per: Patient History/Exam Limitations: no limitations Onset/Duration Of Symptoms: Other (3 weeks ) Current Symptoms Are (Timing): Still Present Associated Symptoms: denies: Diarrhea Additional Complaint(s): Lan Klein, a 61 year old male, presents to the ED with penile bleeding and penile pain x3 weeks. The patient reports that he has a marina catheter that he changes every month by his home health aide. 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 He states that today while having it changed they noticed there was foul smelling urine. The patient reports that the pain and foul smelling urine prompted them to come into the ED. Upon arrival to the ED the patient had a fever of 101. 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 Denies abdominal pain and diarrhea. Patient takes oxycotin at home for the pain. No numbness. No chest pain, dyspnea. No back pain. PMD: Dr. 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 - Family History Family History: States: Unknown Family Hx - Living Arrangements Living Arrangements: With Family - Social History Current smoker - smoking cessation education provided: No Alcohol: None Drugs: Denies - Immunization History Hx Tetanus Toxoid Vaccination: No Hx Influenza Vaccination: No Hx Pneumococcal Vaccination: No - Home Medications Home Medications: Ambulatory Orders Medication Instructions Recorded Carvedilol [Coreg] 6.25 mg PO Q12H PRN 05/09/17 Clonazepam [Klonopin] 2 mg PO HS 05/09/17 Ergocalciferol (Vitamin D2) 50,000 unit PO QWK 05/09/17 [Vitamin D2] Gabapentin [Neurontin] 300 mg PO BID 05/09/17 Insulin Aspart, Recombinant 4 - 16 unit SC AC 05/09/17 [Novolog] Lactobacillus Acidophilus 1 cap PO BID 05/09/17 [Acidophilus] Multivitamin [Multi-Vitamin Daily] 1 tab PO DAILY 05/09/17 Naloxegol Oxalate [Movantik] 25 mg PO DAILY 05/09/17 Oxycodone HCl [Oxycontin] 60 mg PO Q8H 05/09/17 Oxycodone HCl/Acetaminophen 1 tab PO Q4H PRN 05/09/17 [Endocet 10-325 mg Tablet] Polyethylene Glycol 3350 [Miralax] 17 gm PO DAILY PRN 05/09/17 Rosuvastatin Calcium [Crestor] 40 mg PO HS 05/09/17 Silver Sulfadiazine [Ssd] 1 appl TOP BID 05/09/17 Torsemide [Demadex] 10 mg PO DAILY PRN 05/09/17 amLODIPine [Norvasc] 5 mg PO DAILY PRN 05/09/17 clonazePAM [Klonopin] 1 mg PO QAM 05/09/17 - Allergies Allergies/Adverse Reactions: Allergies Allergy/AdvReac Type Severity Reaction Status Date / Time No Known Allergies Allergy Verified 05/09/17 17:30 Review of Systems ROS Statement: Except As Marked, All Systems Reviewed And Found Negative Gastrointestinal: Negative for: Abdominal Pain, Diarrhea Genitourinary Male: Positive for: Penile Pain, Other (Penile bleeding) Physical Exam - Reviewed Nursing Documentation Reviewed: Yes Vital Signs Reviewed: Yes - Physical Exam Appears: Positive for: Uncomfortable Head Exam: Positive for: ATRAUMATIC, NORMAL INSPECTION, NORMOCEPHALIC Skin: Positive for: Normal Color, Warm Eye Exam: Positive for: Normal appearance, EOMI, PERRL ENT: Positive for: Normal ENT Inspection. Negative for: Nasal Congestion, Pharyngeal Erythema Neck: Positive for: Normal, Painless ROM, Supple Cardiovascular/Chest: Positive for: Regular Rate, Rhythm, Chest Non Tender. Negative for: Tachycardia Respiratory: Positive for: Normal Breath Sounds. Negative for: Wheezing, Respiratory Distress Gastrointestinal/Abdominal: Positive for: Normal Exam, Bowel Sounds, Soft. Negative for: Tenderness Male Genital Exam: Positive for: normal genitalia (Marina present draining with no issues; No laceration noted but very painful penis; Falcon discharge coming out of penis shaft.), bleeding, other (No paraphimosis or phimosis.) Back: Positive for: Normal Inspection (No sacral ulcers). Negative for: L CVA Tenderness, R CVA Tenderness Extremity: Positive for: Other (Paralyzed on left lower leg and right upper arm and lower leg.). Negative for: Tenderness, Pedal Edema Neurologic/Psych: Positive for: Alert, Oriented - Laboratory Results Result Diagrams: 05/09/17 20:30 05/09/17 20:30 Interpretation Of Abn Labs: elevated glucose - ECG ECG: Positive for: Interpreted By Me, Viewed By Me ECG Rhythm: Positive for: Normal QRS, Sinus Rhythm, Sinus Tachycardia (mild) O2 Sat by Pulse Oximetry: 100 (RA) Pulse Ox Interpretation: Normal - Radiology X-Ray: Interpreted by Me, Viewed By Me X-Ray Interpretation: No Acute Disease - Progress ED Course And Treament: 1943: Stable. No IV access. Will put in central line. Spoke with director of residential services whol will come in . - Critical Care Total Time (In Min): 30 Documented Critical Care: Time excludes all time spent performint seperately billable procedures Medical Decision Making Medical Decision Makin:40 Initial Impression: 61 year old male presenting with penile pain and bleeding Initial Impression: * Venous Blood Gas * EKG * Comp Metabolic Panel * Magnesium * Phosphorous * Troponin * Udip * CBC * Partial Thromboplastin * Prothombin time * CXR * Dilaudid 1mg IV * Gentamicin 80mg IVPB * Gentamicin 80mg/50ml NS 80mg in 50ml IVPB * NS 1000ml IV 500 mls/hr * Rocephin 2gm NS 100ml IVPB * Tylenol 650mg PO * Blood culture * Wound culture * Urine culture * Urinalysis * Reevaluation 18:[address] Devi preparation operator for urology he gave instructions to give the patient 2 grams of rocephin and 80mg of gentamicin. Dr. Devi is aware of findings patient is to be admitted. Scribe Attestation Documented by Jena Alvarez acting as a scribe for Rambo Ruvalcaba MD. Provider Attestation: All medical record entries made by the Scribe were at my direction and personally dictated by me. I have reviewed the chart and agree that the record accurately reflects my personal performance of the history, physical exam, medical decision making, and the department course for this patient. I have also personally directed, reviewed, and agree with the discharge instructions and disposition. Disposition - Clinical Impression Clinical Impression: Sepsis, Infection of penis - Patient ED Disposition Is Patient to be Admitted: Yes Counseled Patient/Family Regarding: Studies Performed, Diagnosis - Disposition Disposition Time: 18:15 Condition: SERIOUS - Pt Status Changed To: Hospital Disposition Of: Inpatient - Admit Certification Admit to Inpatient:: After my assessment, the patient will require hospitalization for at least two midnights. This is because of the severity of symptoms shown, intensity of services needed, and/or the medical risk in this patient being treated as an outpatient. - POA Present On Arrival: Poor Glycemic Control
[2017-05-09 19:19] LABS: URINE BACTERIA RARE (<OCC); URINE BILIRUBIN NEGATIVE (NEGATIVE); URINE BLOOD NEGATIVE (NEGATIVE); URINE CLARITY CLEAR (Clear); URINE COLOR STRAW (YELLOW); URINE GLUCOSE (UA) NEG (Normal); URINE LEUKOCYTE ESTERASE SMALL Leu/uL (Negative); URINE NITRATE NEGATIVE (NEGATIVE); URINE PROTEIN NEGATIVE (NEGATIVE); URINE UROBILINOGEN 0.2-1.0 mg/dL (0.2-1.0)
[2017-05-09] MEDS ORDERED: diaZEpam 10 mg/2 ml Inj ONE (19:29)
[2017-05-09] MEDS ORDERED: diaZEpam 10 mg/2 ml Inj IM ONE (19:32)
[2017-05-09] MEDS ORDERED: Patient's Own Med (Oxycodone Hcl/Acetaminophen [Endocet 10-325 Mg Tablet] 1 TAB) PO PRN (20:40)
[2017-05-09] MEDS ORDERED: POLYETHYLENE GLYCOL 3350 17 GM/Dose PACKET PO PRN (20:40)
[2017-05-09] MEDS ORDERED: Ergocalciferol 50,000 Intl Units Cap PO SCH (20:45)
--- NOTE | 2017-05-09 20:55 | CP.PCM.HP ---
History of Present Illness - History of Present Illness History of Present Illness: 61 yo male with history of DM2, HTN and 3 previous CVAs causing him to be bed- bound with chronic indwelling marina catheter brought by because of blood and pus oozing from the urethral meatus around the catheter since 3 days ago. The patient also complained of fever and chills and penile swelling and pain. Present on Admission - Present on Admission Any Indicators Present on Admission: No History of DVT/PE: No History of Uncontrolled Diabetes: No Urinary Catheter: No Decubitus Ulcer Present: No Review of Systems - Review of Systems All systems: reviewed and no additional remarkable complaints except (aside from those mentione above, 12 point system review were negative by me) Past Patient History - Tetanus Immunizations Tetanus Immunization: Unknown - Past Medical History & Family History Past Medical History?: Yes Past Family History: Reviewed and not pertinent - Past Social History Smoking Status: Never Smoked Alcohol: None Drugs: Denies Home Situation {Lives}: With Family - CARDIAC Hx Hypercholesterolemia: Yes Hx Hypertension: Yes Hx Peripheral Edema: Yes - PULMONARY Hx Pneumonia: Yes - NEUROLOGICAL Hx Neurological Disorder: Yes HX Cerebrovascular Accident: Yes Hx Meningitis: Yes - HEENT Hx HEENT Problems: No - RENAL Hx Chronic Kidney Disease: No - ENDOCRINE/METABOLIC Hx Endocrine Disorders: Yes Hx Diabetes Mellitus Type 2: Yes - HEMATOLOGICAL/ONCOLOGICAL Hx Anemia: Yes Hx Human Immunodeficiency Virus (HIV): No - INTEGUMENTARY Hx Dermatological Problems: No Other/Comment: MRSA - MUSCULOSKELETAL/RHEUMATOLOGICAL Hx Musculoskeletal Disorders: Yes Hx Falls: No Hx Unsteady Gait: Yes - GASTROINTESTINAL Hx Gastritis: Yes - GENITOURINARY/GYNECOLOGICAL Hx Genitourinary Disorders: Yes Hx Incontinence: Yes Hx Prostate Problems: Yes Hx Urinary Tract Infection: Yes Other/Comment: urinary retention - PSYCHIATRIC Hx Anxiety: Yes Hx Depression: Yes - SURGICAL HISTORY Hx Surgeries: Yes Other/Comment: Neck Sx, Right hand Sx, Right leg Sx cystoscopy - ANESTHESIA Hx Anesthesia: Yes Hx Anesthesia Reactions: No Hx Malignant Hyperthermia: No Meds Allergies/Adverse Reactions: Allergies Allergy/AdvReac Type Severity Reaction Status Date / Time No Known Allergies Allergy Verified 05/09/17 17:30 Physical Exam - Constitutional Appears: No Acute Distress, Other (bed bound with chronic indwelling catheter) - Head Exam Head Exam: ATRAUMATIC - Eye Exam Eye Exam: absent: Scleral icterus - ENT Exam ENT Exam: Mucous Membranes Moist - Neck Exam Neck exam: Negative for: Meningismus - Respiratory Exam Respiratory Exam: absent: Rhonchi, Wheezes, Respiratory Distress - Cardiovascular Exam Cardiovascular Exam: Tachycardia, +S1, +S2 - GI/Abdominal Exam GI & Abdominal Exam: Soft. absent: Tenderness - Rectal Exam Rectal Exam: Deferred - Exam Exam: Uretheral Discharge External exam: Swelling (penile swelling) - Extremities Exam Extremities exam: Positive for: pedal edema (3+ pedal edema) - Neurological Exam Neurological exam: Alert, Oriented x3 - Psychiatric Exam Psychiatric exam: Normal Affect - Skin Skin Exam: Dry, Intact Results - Vital Signs Recent Vital Signs: Last Vital Signs Temp 102 F H 05/09/17 19:37 Pulse 111 H 05/09/17 17:30 Resp 16 05/09/17 17:30 BP 115/75 05/09/17 17:30 Pulse Ox 100 05/09/17 20:25 - Labs Result Diagrams: 05/09/17 20:30 05/09/17 20:30 Assessment & Plan (1) Catheter-associated urinary tract infection Status: Acute Comment: admit to telemetry. blood culture x 2. urine C&S. received Rocephin and Gentamycin in the ER. urology consult with Dr Devi called by ER (2) Sepsis Status: Acute Comment: ID consult with Dr lCoud. received Rocephin and Gentamycin in ER\. IV hydration with NSS 120cc/hr. Tylenol 650mg zpo q 4hrs prn for fever (3) DM2 (diabetes mellitus, type 2) Status: Acute Comment: accuchek ACHS with low Lispro coverage. diabetic diet. HgA1C, BMP in am (4) HTN (hypertension) Status: Acute Comment: BP stable. continue Norvasc and carvedilol
[2017-05-09 20:56] LABS: BASO % 0.5 % (0.0-2.0); EOS # 0.1 K/uL (0.0-0.7); EOS % 1.7 % (0.0-4.0); HEMOGLOBIN 13.6 g/dL (12.0-18.0); LYMPH # 2.5 K/uL (1.0-4.3); LYMPH % 32.2 % (20.0-40.0); MEAN CELL VOLUME 90.8 fl (80.0-94.0); MEAN CORPUSCULAR HEMOGLOBIN 30.6 pg (27.0-31.0); MEAN CORPUSCULAR HGB CONC 33.7 g/dL (33.0-37.0); MEAN PLATELET VOLUME 7.4 fl (7.2-11.7); MONO # 0.8 K/uL (0.0-0.8); MONO % 9.9 % (0.0-10.0); NEUT # 4.4 K/uL (1.8-7.0); NEUT % 55.7 % (50.0-75.0); RBC 4.44 Mil/uL (4.40-5.90); RED CELL DISTRIBUTION WIDTH 14.2 % (11.5-14.5); WHITE BLOOD COUNT 7.8 K/uL (4.8-10.8)
[2017-05-09 21:01] LABS: ALBUMIN 4.1 g/dL (3.5-5.0); ALT/SGPT 31 U/L (21-72); AST/SGOT 34 U/L (17-59); BLOOD UREA NITROGEN 10 mg/dl (9-20); CALCIUM 9.2 mg/dL (8.4-10.2); GFR AFRICAN-AMERICAN > 60; GFR NON-AFRICAN AMERICAN > 60; MAGNESIUM 1.8 MG/DL (1.6-2.3)
[2017-05-09 21:15] LABS: PARTIAL THROMBOPLASTIN TIME 19.3 Seconds (25.6-37.1); PROTHROMBIN TIME 10.9 Seconds (9.8-13.1)
--- NOTE | 2017-05-09 21:18 | PCM.PROC ---
Procedures Attestation:: I certify that I have explained the specified Operation(s) or Procedure(s), risks, benefits and reasonable alternatives to the Patient and/or other person responsible. The opportunity was given to ask questions and all questions answered - Central Line Placement Right Internal Jugular Triple Lumen Catheter Aseptic technique was employed throughout the procedure: Hand Hygiene done prior to procedure, Full sterile barriers (mask, hair cover, sterile gown, sterile gloves), Full body sterile drape, Chloraprep Antiseptic: 30 second prep for IJ or SC sites CVP Time Out Performed: No Pt. Placed on Pulse Ox Monitor: Yes Central Line Prep: Chlorhexidine-Alcohol Combination Local Anesthesia Used: Lidocaine 1% Amount of Anesthesia Used (mls): 5 Ultrasound Used for Placement: Yes Central Line Lumen Inserted: triple Post Procedure X-Ray: Yes Immediate Complications: Other Additional Comments: unable to gain access Right Femoral Triple Lumen Catheter Aseptic technique was employed throughout the procedure: Hand Hygiene done prior to procedure, Full sterile barriers (mask, hair cover, sterile gown, sterile gloves), Full body sterile drape, Chloraprep Antiseptic: 2 minute prep for Femoral CVP Time Out Performed: No Pt. Placed on Pulse Ox Monitor: Yes Central Line Prep: Chlorhexidine-Alcohol Combination Local Anesthesia Used: Lidocaine 1% Amount of Anesthesia Used (mls): 5 Ultrasound Used for Placement: Yes Central Line Lumen Inserted: triple Central Line Length: 20 cm Post Procedure: Sutured in Place, Good Blood Return, All Ports Aspirated, Flushed, Capped, Sterile Dressing Applied Secured by: Suture Post procedure dressing: Gauze, Clear vapor permeable, Chlorhexidine disc ( Biopatch) Post Procedure X-Ray: No Patient Tolerated Procedure: Well Immediate Complications: None
[2017-05-09] MEDS: Sodium Chloride 0.9% 1,000 ML IV SCH (21:57)
[2017-05-09 22:02] LABS: VENOUS BLOOD GAS PCO2 48 mmHg (40-60); VENOUS BLOOD GAS PO2 35 mm/Hg (30-55)
[2017-05-09] MEDS: Insulin Lispro (humaLOG) 100 Units/ml Inj SC SCH (22:35)
[2017-05-10] MEDS: Sodium Chloride 0.9% 1,000 ML IV SCH ×5 (00:11→20:16)
[2017-05-10] MEDS: oxyCODONE 20 mg ER Tab (oxyCONTIN) PO SCH ×4 (00:16→22:49)
[2017-05-10] MEDS ORDERED: cefTRIAXone 2 GM in Sodium Chloride 0.9% 100 ML IVPB ONE (00:34)
[2017-05-10] MEDS: Oxycodone/Acetaminophen 5/325 mg Tab PO PRN ×3 (01:29→10:07)
[2017-05-10] MEDS: oxyCODONE 5 mg Immediate Release Tab PO PRN ×3 (01:30→10:00)
[2017-05-10] MEDS: Insulin Lispro (humaLOG) 100 Units/ml Inj SC SCH ×4 (07:06→21:33)
[2017-05-10 07:21] LABS: BASO % 0.6 % (0.0-2.0); EOS # 0.2 K/uL (0.0-0.7); EOS % 2.2 % (0.0-4.0); HEMOGLOBIN 11.4 g/dL (12.0-18.0); LYMPH # 2.5 K/uL (1.0-4.3); MEAN CELL VOLUME 90.6 fl (80.0-94.0); MEAN CORPUSCULAR HEMOGLOBIN 30.4 pg (27.0-31.0); MEAN CORPUSCULAR HGB CONC 33.5 g/dL (33.0-37.0); MEAN PLATELET VOLUME 6.9 fl (7.2-11.7); MONO # 0.8 K/uL (0.0-0.8); MONO % 11.5 % (0.0-10.0); NEUT # 3.4 K/uL (1.8-7.0); NEUT % 49.7 % (50.0-75.0); NRBC % 0.1 % (0.0-0.0); RBC 3.75 Mil/uL (4.40-5.90); RED CELL DISTRIBUTION WIDTH 14.5 % (11.5-14.5); WHITE BLOOD COUNT 6.9 K/uL (4.8-10.8)
[2017-05-10 07:27] LABS: BLOOD UREA NITROGEN 9 mg/dl (9-20); CALCIUM 8.2 mg/dL (8.4-10.2); GFR AFRICAN-AMERICAN > 60; GFR NON-AFRICAN AMERICAN > 60
[2017-05-10] MEDS ORDERED: Silver Sulfadiazine 1% CREAM (50 gm) TOP SCH (09:00)
--- NOTE | 2017-05-10 09:59 | RAD ---
HISTORY: Sepsis Patient COMPARISON: 02/03/2017. FINDINGS: LUNGS: There is interval improved aeration in both lungs. Lungs are clear. No lobar pneumonia. PLEURA: No significant pleural effusion identified, no pneumothorax apparent. CARDIOVASCULAR: Normal. OSSEOUS STRUCTURES: No significant abnormalities. VISUALIZED UPPER ABDOMEN: Normal. OTHER FINDINGS: None. IMPRESSION: No active pulmonary disease.
--- NOTE | 2017-05-10 10:12 | RAD ---
HISTORY: post line placement COMPARISON: 05/09/2017 FINDINGS: LUNGS: The lungs are clear. PLEURA: No significant pleural effusion identified, no pneumothorax apparent. CARDIOVASCULAR: Normal. OSSEOUS STRUCTURES: No significant abnormalities. VISUALIZED UPPER ABDOMEN: Normal. OTHER FINDINGS: Status post ACDF in the lower cervical spine. IMPRESSION: No acute findings.
[2017-05-10] MEDS: Lactobacillus Acidophilus 500 MU Cap PO SCH ×2 (10:13→18:07)
[2017-05-10] MEDS: Multivitamin With Minerals Tab PO SCH (10:16)
[2017-05-10] MEDS ORDERED: HYDROmorphone 0.5 mg/0.5 ml ISec ONE (11:19)
[2017-05-10] MEDS ORDERED: HYDROmorphone 0.5 mg/0.5 ml ISec IVP STA (11:21)
--- NOTE | 2017-05-10 11:58 | CP.PCM.PN ---
Subjective - Date & Time of Evaluation Date of Evaluation: 05/10/17 Time of Evaluation: 11:00 - Subjective Subjective: Patient seen and examined. Screaming from pain on infected penis. Objective - Vital Signs/Intake and Output Vital Signs (last 24 hours): Temp Pulse Resp BP Pulse Ox 97.5 F L 68 18 119/72 97 05/10/17 08:00 05/10/17 08:00 05/10/17 08:00 05/10/17 08:00 05/10/17 08:00 Intake and Output: 05/10/17 05/10/17 06:59 18:59 Intake Total 1100 Output Total 900 Balance 200 - Medications Medications: Current Medications Aspirin (Aspirin Chewable) 81 mg PO DAILY [facility] Carvedilol (Coreg) 3.125 mg PO Q12H [facility] Clonazepam (Klonopin) 1 mg PO QAM [facility] Last Admin: 05/10/17 10:00 Dose: 1 mg Clonazepam (Klonopin) 2 mg PO HS [facility] Last Admin: 05/10/17 01:02 Dose: 2 mg Ergocalciferol (Drisdol 50,000 Intl Units Cap) 1 cap PO QWK [facility] Gabapentin (Neurontin) 300 mg PO BID [facility] Last Admin: 05/10/17 10:01 Dose: 300 mg Home Med (Naloxegol Oxalate [Movantik]) 25 mg PO DAILY [facility] Sodium Chloride (Sodium Chloride 0.9%) 1,000 mls @ 120 mls/hr IV .Q8H20M [facility] Stop: 05/11/17 02:48 Last Admin: 05/10/17 03:03 Dose: 120 mls/hr Ceftriaxone Sodium 1 gm/ (Sodium Chloride) 100 mls @ 100 mls/hr IVPB DAILY@ 2200 [facility] Gentamicin Sulfate 80 mg/ (Sodium Chloride) 252 mls @ 0 mls/hr IVPB Q8 [facility] PRN Reason: Per Protocol Insulin Human Lispro (Humalog) 0 units SC ACHS [facility] PRN Reason: Protocol Last Admin: 05/10/17 07:06 Dose: 1 u Lactobacillus Acidophilus (Bacid Acidophilus) 1 cap PO BID [facility] Last Admin: 05/10/17 10:13 Dose: 1 cap Multivitamins/Minerals (Therapeutic-M Tab) 1 tab PO DAILY [facility] Last Admin: 05/10/17 10:16 Dose: 1 tab Oxycodone HCl (Oxycontin Extended Release Tab) 60 mg PO Q8H [facility] Last Admin: 05/10/17 08:55 Dose: 60 mg Oxycodone HCl (Oxycodone Immediate Release Tab) 5 mg PO Q4 PRN PRN Reason: Pain, severe (8-10) Last Admin: 05/10/17 10:00 Dose: 5 mg Oxycodone/Acetaminophen (Percocet 5/325 Mg Tab) 1 tab PO Q4 PRN PRN Reason: Pain, severe (8-10) Stop: 05/13/17 01:16 Last Admin: 05/10/17 10:07 Dose: 1 tab Polyethylene Glycol (Miralax) 17 gm PO DAILY PRN PRN Reason: Constipation Torsemide (Demadex) 10 mg PO DAILY PRN PRN Reason: leg swelling - Labs Labs: 05/10/17 05:30 05/10/17 05:30 PT 10.9 Seconds (9.8-13.1) 05/09/17 20:30 INR 1.0 (0.9-1.2) 05/09/17 20:30 APTT 19.3 Seconds (25.6-37.1) L 05/09/17 20:30 - Constitutional Appears: In Acute Distress (in distress from pain on swollen penis) - Head Exam Head Exam: ATRAUMATIC - Eye Exam Eye Exam: absent: Scleral icterus - ENT Exam ENT Exam: Mucous Membranes Moist - Neck Exam Neck Exam: absent: Meningismus - Respiratory Exam Respiratory Exam: NORMAL BREATHING PATTERN. absent: Wheezes, Respiratory Distress - Cardiovascular Exam Cardiovascular Exam: REGULAR RHYTHM, +S1, +S2 - GI/Abdominal Exam GI & Abdominal Exam: Soft. absent: Tenderness - Rectal Exam Rectal Exam: Deferred - Exam Exam: absent: Circumcision (infected and swollen prepuce with yellowish discharge) - Extremities Exam Extremities Exam: Pedal Edema - Neurological Exam Neurological Exam: Alert, Normal Gait - Psychiatric Exam Psychiatric exam: Agitated (agitated because of severe pain) - Skin Skin Exam: Dry, Intact Assessment and Plan (1) Infection of penis Status: Acute (2) Sepsis Status: Acute (3) DM2 (diabetes mellitus, type 2) Status: Chronic (4) HTN (hypertension) Status: Chronic (5) CVA (cerebral infarction) Status: Chronic - Assessment and Plan (Free Text) Assessment: 61 yo male with history of DM2, HTN and 3 previous CVAs causing him to be bed- bound with chronic indwelling marina catheter brought by because of blood and pus oozing from the urethral meatus and swollen prepuce associated with fever and chills. (1) Infected Penis/Prepuce Dr Devi saw patient and cleaned prepuce recommended circumcision once infection is controlled continue IV Rocephin and Gentamycin continue pain management (2) Sepsis no leukocytosis but had fever and chills on admission IV hydration with NSS 120cc/hr. Tylenol 650mg zpo q 4hrs prn for fever (3) DM2 (diabetes mellitus, type 2) BS relatively controlled accuchek ACHS with low Lispro coverage HgA1C pending (4) HTN (hypertension) BP stable. continue low dose Carvedilol (5) Previous CVA refer to PT for evaluation and management continue ASA, statin and BP control pain management consult with Dr Puri
--- NOTE | 2017-05-10 12:20 | CP.PCM.CON ---
History of Present Illness - History of Present Illness History of Present Illness: 61 yo known to me from the previous admission is referred for pain management. Patient presents with penile infection, phimosis. He has chronic pain from diabetic neuropathy and central pain post CVA. At home he's on Oxycontin 60mg q12-q8H along with Endocet 10/325mg, and Neurontin 300mg. He had been restarted on home regimen and has been tolerating it well. He was given Dilaudid 1mg IV x 1, which he tolerated well. Past Patient History - Tetanus Immunizations Tetanus Immunization: Unknown - Past Medical History & Family History Past Medical History?: Yes - Past Social History Smoking Status: Never Smoked - CARDIAC Hx Cardiac Disorders: Yes - PULMONARY Hx Respiratory Disorders: Yes - NEUROLOGICAL Hx Neurological Disorder: Yes - HEENT Hx HEENT Problems: No - RENAL Hx Chronic Kidney Disease: No - ENDOCRINE/METABOLIC Hx Endocrine Disorders: Yes - HEMATOLOGICAL/ONCOLOGICAL Hx Anemia: Yes Hx Human Immunodeficiency Virus (HIV): No - INTEGUMENTARY Hx Dermatological Problems: No - MUSCULOSKELETAL/RHEUMATOLOGICAL Hx Falls: No - GASTROINTESTINAL Hx Gastritis: Yes - GENITOURINARY/GYNECOLOGICAL Hx Genitourinary Disorders: Yes - PSYCHIATRIC Hx Substance Use: No - SURGICAL HISTORY Hx Surgeries: Yes Other/Comment: Neck Sx, Right hand Sx, Right leg Sx cystoscopy - ANESTHESIA Hx Anesthesia: Yes Hx Anesthesia Reactions: No Hx Malignant Hyperthermia: No Meds Allergies/Adverse Reactions: Allergies Allergy/AdvReac Type Severity Reaction Status Date / Time No Known Allergies Allergy Verified 05/09/17 17:30 - Medications Medications: Current Medications Aspirin (Aspirin Chewable) 81 mg PO DAILY [facility] Carvedilol (Coreg) 3.125 mg PO Q12H [facility] Clonazepam (Klonopin) 1 mg PO QAM [facility] Last Admin: 05/10/17 10:00 Dose: 1 mg Clonazepam (Klonopin) 2 mg PO HS [facility] Last Admin: 05/10/17 01:02 Dose: 2 mg Ergocalciferol (Drisdol 50,000 Intl Units Cap) 1 cap PO QWK [facility] Gabapentin (Neurontin) 300 mg PO BID [facility] Last Admin: 05/10/17 10:01 Dose: 300 mg Home Med (Naloxegol Oxalate [Movantik]) 25 mg PO DAILY [facility] Sodium Chloride (Sodium Chloride 0.9%) 1,000 mls @ 120 mls/hr IV .Q8H20M [facility] Stop: 05/11/17 02:48 Last Admin: 05/10/17 03:03 Dose: 120 mls/hr Ceftriaxone Sodium 1 gm/ (Sodium Chloride) 100 mls @ 100 mls/hr IVPB DAILY@ 2200 [facility] Gentamicin Sulfate/Sodium Chloride (Gentamicin 80mg/50ml Ns) 80 mg in 50 mls @ 50 mls/hr IVPB Q8 [facility] Insulin Human Lispro (Humalog) 0 units SC ACHS [facility] PRN Reason: Protocol Last Admin: 05/10/17 12:10 Dose: Not Given Lactobacillus Acidophilus (Bacid Acidophilus) 1 cap PO BID [facility] Last Admin: 05/10/17 10:13 Dose: 1 cap Multivitamins/Minerals (Therapeutic-M Tab) 1 tab PO DAILY [facility] Last Admin: 05/10/17 10:16 Dose: 1 tab Oxycodone HCl (Oxycontin Extended Release Tab) 60 mg PO Q8H [facility] Last Admin: 05/10/17 08:55 Dose: 60 mg Oxycodone HCl (Oxycodone Immediate Release Tab) 5 mg PO Q4 PRN PRN Reason: Pain, severe (8-10) Last Admin: 05/10/17 10:00 Dose: 5 mg Oxycodone/Acetaminophen (Percocet 5/325 Mg Tab) 1 tab PO Q4 PRN PRN Reason: Pain, severe (8-10) Stop: 05/13/17 01:16 Last Admin: 05/10/17 10:07 Dose: 1 tab Polyethylene Glycol (Miralax) 17 gm PO DAILY PRN PRN Reason: Constipation Torsemide (Demadex) 10 mg PO DAILY PRN PRN Reason: leg swelling Physical Exam - Respiratory Exam Respiratory Exam: NORMAL BREATHING PATTERN - Cardiovascular Exam Cardiovascular Exam: REGULAR RHYTHM - GI/Abdominal Exam GI & Abdominal Exam: Normal Bowel Sounds Results - Vital Signs Recent Vital Signs: Last Vital Signs Temp 97.5 F L 05/10/17 08:00 Pulse 68 05/10/17 08:00 Resp 18 05/10/17 08:00 BP 119/72 05/10/17 08:00 Pulse Ox 97 05/10/17 08:00 - Labs Result Diagrams: 05/10/17 05:30 05/10/17 05:30 Labs: Laboratory Results - last 24 hr 05/09/17 05/09/17 05/09/17 20:30 20:30 20:30 WBC 7.8 RBC 4.44 Hgb 13.6 Hct 40.3 MCV 90.8 MCH 30.6 MCHC 33.7 RDW 14.2 Plt Count 289 D MPV 7.4 Neut % (Auto) 55.7 Lymph % (Auto) 32.2 [place] % (Auto) 9.9 Eos % (Auto) 1.7 Baso % (Auto) 0.5 Neut # 4.4 Lymph # 2.5 [place] # 0.8 Eos # 0.1 Baso # 0.0 PT 10.9 INR 1.0 APTT 19.3 L pO2 VBG pH VBG pCO2 VBG HCO3 VBG Total CO2 VBG O2 Sat (Calc) VBG Base Excess VBG Potassium Glucose Lactate FiO2 Blood Gas Comments Crit Value Read Back Sodium 134 Potassium 4.8 Chloride 98 Carbon Dioxide 27 Anion Gap 14 BUN 10 Creatinine 0.9 Est GFR ( Amer) > 60 Est GFR (Non-Af Amer) > 60 POC Glucose (mg/dL) Random Glucose 237 H Lactic Acid Calcium 9.2 Phosphorus 3.7 Magnesium 1.8 Total Bilirubin 0.9 AST 34 ALT 31 Alkaline Phosphatase 113 Troponin I < 0.0120 Total Protein 8.4 H Albumin 4.1 Globulin 4.3 H Albumin/Globulin Ratio 1.0 Venous Blood Potassium 05/09/17 05/10/17 05/10/17 21:00 03:32 05:30 WBC 6.9 RBC 3.75 L Hgb 11.4 L D Hct 34.0 L MCV 90.6 MCH 30.4 MCHC 33.5 RDW 14.5 Plt Count 248 MPV 6.9 L Neut % (Auto) 49.7 L Lymph % (Auto) 36.0 [place] % (Auto) 11.5 H Eos % (Auto) 2.2 Baso % (Auto) 0.6 Neut # 3.4 Lymph # 2.5 [place] # 0.8 Eos # 0.2 Baso # 0.0 PT INR APTT pO2 35 VBG pH 7.40 VBG pCO2 48 VBG HCO3 27.2 VBG Total CO2 31.2 H VBG O2 Sat (Calc) 77.9 H VBG Base Excess 4.0 H VBG Potassium 3.5 L Glucose 233 H Lactate 1.1 FiO2 21.0 Blood Gas Comments Vbg was done at 22:00 : Crit Value Read Back Y Sodium 134.0 Potassium Chloride 98.0 Carbon Dioxide Anion Gap BUN Creatinine Est GFR ( Amer) Est GFR (Non-Af Amer) POC Glucose (mg/dL) Random Glucose Lactic Acid 0.7 Calcium Phosphorus Magnesium Total Bilirubin AST ALT Alkaline Phosphatase Troponin I Total Protein Albumin Globulin Albumin/Globulin Ratio Venous Blood Potassium 3.5 L 05/10/17 05/10/17 05/10/17 05:30 05:50 11:34 WBC RBC Hgb Hct MCV MCH MCHC RDW Plt Count MPV Neut % (Auto) Lymph % (Auto) [place] % (Auto) Eos % (Auto) Baso % (Auto) Neut # Lymph # [place] # Eos # Baso # PT INR APTT pO2 VBG pH VBG pCO2 VBG HCO3 VBG Total CO2 VBG O2 Sat (Calc) VBG Base Excess VBG Potassium Glucose Lactate FiO2 Blood Gas Comments Crit Value Read Back Sodium 137 Potassium 3.8 Chloride 108 H Carbon Dioxide 21 L Anion Gap 12 BUN 9 Creatinine 0.8 Est GFR ( Amer) > 60 Est GFR (Non-Af Amer) > 60 POC Glucose (mg/dL) 159 H 143 H Random Glucose 159 H Lactic Acid Calcium 8.2 L Phosphorus Magnesium Total Bilirubin AST ALT Alkaline Phosphatase Troponin I Total Protein Albumin Globulin Albumin/Globulin Ratio Venous Blood Potassium Assessment & Plan (1) Sepsis Assessment and Plan: 61 yo man w/ chronic pain has penile infection/phimosis. - continue Oxycontin 60mg q8h - start Dilaudid 1mg IV q3h PRN - hold endocet - continue Neurontin - patient may resume home medication of Oxycontin and Endocet upon discharge Status: Acute
--- NOTE | 2017-05-10 12:43 | CP.PCM.CON ---
History of Present Illness - History of Present Illness History of Present Illness: UROLOGY Called to see karissa pt for purulent disch from foreskin. this pt has a urologic history of chronic urinary retention and has an indewlling marina for more than one year. cares for his hygiene and noted recent craks in the redundant foreskin and afterwhich pus was noted. Pt is diabetic as well with elevated glucose levels. oN pe he has mildly swollen foreskin. i cannot retract foreskin to provide sufficient as well taht the pt told to stop cleaning him because of pain and would only allow cleaning under anesthesia. He is on multi IV antibiotics at this time. UA shows few bacteria and in fact is visulally clear in the bag. BUN/ CREAT OK C&S of drainage pending. I encouraged to try to clean the area if he will permit her, cont iv antibiotics till resplved and after resolution to consider circumcision Past Patient History - Tetanus Immunizations Tetanus Immunization: Unknown - Past Medical History & Family History Past Medical History?: Yes - Past Social History Smoking Status: Never Smoked - CARDIAC Hx Cardiac Disorders: Yes - PULMONARY Hx Respiratory Disorders: Yes - NEUROLOGICAL Hx Neurological Disorder: Yes - HEENT Hx HEENT Problems: No - RENAL Hx Chronic Kidney Disease: No - ENDOCRINE/METABOLIC Hx Endocrine Disorders: Yes - HEMATOLOGICAL/ONCOLOGICAL Hx Anemia: Yes Hx Human Immunodeficiency Virus (HIV): No - INTEGUMENTARY Hx Dermatological Problems: No - MUSCULOSKELETAL/RHEUMATOLOGICAL Hx Falls: No - GASTROINTESTINAL Hx Gastritis: Yes - GENITOURINARY/GYNECOLOGICAL Hx Genitourinary Disorders: Yes - PSYCHIATRIC Hx Substance Use: No - SURGICAL HISTORY Hx Surgeries: Yes Other/Comment: Neck Sx, Right hand Sx, Right leg Sx cystoscopy - ANESTHESIA Hx Anesthesia: Yes Hx Anesthesia Reactions: No Hx Malignant Hyperthermia: No Meds Allergies/Adverse Reactions: Allergies Allergy/AdvReac Type Severity Reaction Status Date / Time No Known Allergies Allergy Verified 05/09/17 17:30 - Medications Medications: Current Medications Aspirin (Aspirin Chewable) 81 mg PO DAILY [facility] Atorvastatin Calcium (Lipitor) 20 mg PO HS [facility] Carvedilol (Coreg) 3.125 mg PO Q12H [facility] Clonazepam (Klonopin) 1 mg PO QAM [facility] Last Admin: 05/10/17 10:00 Dose: 1 mg Clonazepam (Klonopin) 2 mg PO HS [facility] Last Admin: 05/10/17 01:02 Dose: 2 mg Ergocalciferol (Drisdol 50,000 Intl Units Cap) 1 cap PO QWK [facility] Gabapentin (Neurontin) 300 mg PO BID [facility] Last Admin: 05/10/17 10:01 Dose: 300 mg Home Med (Naloxegol Oxalate [Movantik]) 25 mg PO DAILY [facility] Hydromorphone HCl (Dilaudid) 1 mg IVP Q3 PRN PRN Reason: Pain, severe (8-10) Sodium Chloride (Sodium Chloride 0.9%) 1,000 mls @ 120 mls/hr IV .Q8H20M [facility] Stop: 05/11/17 02:48 Last Admin: 05/10/17 12:31 Dose: 120 mls/hr Ceftriaxone Sodium 1 gm/ (Sodium Chloride) 100 mls @ 100 mls/hr IVPB DAILY@ 2200 [facility] Gentamicin Sulfate/Sodium Chloride (Gentamicin 80mg/50ml Ns) 80 mg in 50 mls @ 50 mls/hr IVPB Q8 [facility] Insulin Human Lispro (Humalog) 0 units SC ACHS [facility] PRN Reason: Protocol Last Admin: 05/10/17 12:10 Dose: Not Given Lactobacillus Acidophilus (Bacid Acidophilus) 1 cap PO BID [facility] Last Admin: 05/10/17 10:13 Dose: 1 cap Multivitamins/Minerals (Therapeutic-M Tab) 1 tab PO DAILY [facility] Last Admin: 05/10/17 10:16 Dose: 1 tab Oxycodone HCl (Oxycontin Extended Release Tab) 60 mg PO Q8H [facility] Last Admin: 05/10/17 08:55 Dose: 60 mg Polyethylene Glycol (Miralax) 17 gm PO DAILY PRN PRN Reason: Constipation Torsemide (Demadex) 10 mg PO DAILY PRN PRN Reason: leg swelling Results - Vital Signs Recent Vital Signs: Last Vital Signs Temp 97.5 F L 05/10/17 08:00 Pulse 68 05/10/17 08:00 Resp 18 05/10/17 08:00 BP 119/72 05/10/17 08:00 Pulse Ox 97 05/10/17 08:00 - Labs Result Diagrams: 05/10/17 05:30 05/10/17 05:30 Labs: Laboratory Results - last 24 hr 05/09/17 05/09/17 05/09/17 20:30 20:30 20:30 WBC 7.8 RBC 4.44 Hgb 13.6 Hct 40.3 MCV 90.8 MCH 30.6 MCHC 33.7 RDW 14.2 Plt Count 289 D MPV 7.4 Neut % (Auto) 55.7 Lymph % (Auto) 32.2 [place] % (Auto) 9.9 Eos % (Auto) 1.7 Baso % (Auto) 0.5 Neut # 4.4 Lymph # 2.5 [place] # 0.8 Eos # 0.1 Baso # 0.0 PT 10.9 INR 1.0 APTT 19.3 L pO2 VBG pH VBG pCO2 VBG HCO3 VBG Total CO2 VBG O2 Sat (Calc) VBG Base Excess VBG Potassium Glucose Lactate FiO2 Blood Gas Comments Crit Value Read Back Sodium 134 Potassium 4.8 Chloride 98 Carbon Dioxide 27 Anion Gap 14 BUN 10 Creatinine 0.9 Est GFR ( Amer) > 60 Est GFR (Non-Af Amer) > 60 POC Glucose (mg/dL) Random Glucose 237 H Lactic Acid Calcium 9.2 Phosphorus 3.7 Magnesium 1.8 Total Bilirubin 0.9 AST 34 ALT 31 Alkaline Phosphatase 113 Troponin I < 0.0120 Total Protein 8.4 H Albumin 4.1 Globulin 4.3 H Albumin/Globulin Ratio 1.0 Venous Blood Potassium 05/09/17 05/10/17 05/10/17 21:00 03:32 05:30 WBC 6.9 RBC 3.75 L Hgb 11.4 L D Hct 34.0 L MCV 90.6 MCH 30.4 MCHC 33.5 RDW 14.5 Plt Count 248 MPV 6.9 L Neut % (Auto) 49.7 L Lymph % (Auto) 36.0 [place] % (Auto) 11.5 H Eos % (Auto) 2.2 Baso % (Auto) 0.6 Neut # 3.4 Lymph # 2.5 [place] # 0.8 Eos # 0.2 Baso # 0.0 PT INR APTT pO2 35 VBG pH 7.40 VBG pCO2 48 VBG HCO3 27.2 VBG Total CO2 31.2 H VBG O2 Sat (Calc) 77.9 H VBG Base Excess 4.0 H VBG Potassium 3.5 L Glucose 233 H Lactate 1.1 FiO2 21.0 Blood Gas Comments Vbg was done at 22:00 : Crit Value Read Back Y Sodium 134.0 Potassium Chloride 98.0 Carbon Dioxide Anion Gap BUN Creatinine Est GFR ( Amer) Est GFR (Non-Af Amer) POC Glucose (mg/dL) Random Glucose Lactic Acid 0.7 Calcium Phosphorus Magnesium Total Bilirubin AST ALT Alkaline Phosphatase Troponin I Total Protein Albumin Globulin Albumin/Globulin Ratio Venous Blood Potassium 3.5 L 05/10/17 05/10/17 05/10/17 05:30 05:50 11:34 WBC RBC Hgb Hct MCV MCH MCHC RDW Plt Count MPV Neut % (Auto) Lymph % (Auto) [place] % (Auto) Eos % (Auto) Baso % (Auto) Neut # Lymph # [place] # Eos # Baso # PT INR APTT pO2 VBG pH VBG pCO2 VBG HCO3 VBG Total CO2 VBG O2 Sat (Calc) VBG Base Excess VBG Potassium Glucose Lactate FiO2 Blood Gas Comments Crit Value Read Back Sodium 137 Potassium 3.8 Chloride 108 H Carbon Dioxide 21 L Anion Gap 12 BUN 9 Creatinine 0.8 Est GFR ( Amer) > 60 Est GFR (Non-Af Amer) > 60 POC Glucose (mg/dL) 159 H 143 H Random Glucose 159 H Lactic Acid Calcium 8.2 L Phosphorus Magnesium Total Bilirubin AST ALT Alkaline Phosphatase Troponin I Total Protein Albumin Globulin Albumin/Globulin Ratio Venous Blood Potassium
--- NOTE | 2017-05-10 14:45 | PQF GENQUE ---
Dr. Hilliard, Etiology of Sepsis? :if known after the work up is complete: i.e. due to marina catheter related UTI versus Infected Penis/Prepuce versus multifactorial etiology? OR: Unable to determine OR: Other explanation of clinical findings H and P:1) Catheter-associated urinary tract infection Status: Acute Comment: admit to telemetry. blood culture x 2. urine C S. received Rocephin and Gentamycin in the ER. urology consult with Dr Devi called by ER (2) Sepsis Status: Acute Comment: ID consult with Dr Cloud. received Rocephin and Gentamycin in ER . IV hydration with NSS 120cc/hr. Tylenol 650mg zpo q 4hrs prn for fever Urology consult: d/c from foreskin: has a urologic hx. of chronic urinary retention and has an indewlling marina x one yr.; recent cracks in the redundant foreskin and after which pus was noted; DM as well with elevated glucose levels ; has mildly swollen foreskin. I cannot retract foreskin-----. He is on multi IV antibiotics at this time. UA shows few bacteria and in fact is visulally clear in the bag. C/ S of drainage pending; continue iv antibiotics till resolved and after resolution to consider circumcision 05/10: Attending progress note: 1) Infected Penis/Prepuce Dr Devi saw patient and cleaned prepuce recommended circumcision once infection is controlled continue IV Rocephin and Gentamycin continue pain management (2) Sepsis no leukocytosis but had fever and chills on admission This form is a permanent part of the medical record Clarification of your documentation is requested to better reflect the severity of illness and intensity of treatment of your patient. Indicators present [] Specify: [] [] Specify: [] [] Specify: [] [] Specify: [] Location in the medical record that reflects the above clinical findings: [] Treatment Provided: [] PHYSICIAN'S RESPONSE Based on your medical judgment of the clinical indicators outlined above please clarify the following: [x] Practitioner response : Infected penis and prepuce [] If unable to determine, please check the box, sign and date. Present On Admission (POA) Indicator: [] Present at the time of admission [] Not present at the time of admission [] Clinically Undetermined In responding to this query, please exercise your independent professional judgment. The fact that a question is asked does not imply that any particular answer is desired or expected. Thank you for your clarification on this documentation. If you have any questions please call. * Thank you, Shyla Armando RN BSN ext. #[phone] MTDD
[2017-05-10] MEDS: Gentamicin 80mg/50ml NS 80 MG/50 ML BAG IVPB SCH ×3 (15:05→21:18)
--- NOTE | 2017-05-10 17:19 | CARD ---
APPROVED REPORT EKG Measurement Heart [id number] <Conclusion> Sinus tachycardia Possible Left atrial enlargement Borderline ECG
[2017-05-11] MEDS: Gentamicin 80mg/50ml NS 80 MG/50 ML BAG IVPB SCH ×2 (05:35→23:24)
[2017-05-11] MEDS: Insulin Lispro (humaLOG) 100 Units/ml Inj SC SCH ×2 (06:44→23:40)
[2017-05-11] MEDS: Lactobacillus Acidophilus 500 MU Cap PO SCH (08:36)
[2017-05-11] MEDS: oxyCODONE 20 mg ER Tab (oxyCONTIN) PO SCH ×2 (08:40→23:19)
[2017-05-11] MEDS: Multivitamin With Minerals Tab PO SCH (08:41)
[2017-05-11] MEDS ORDERED: HYDROmorphone 0.5 mg/0.5 ml ISec ONE (09:00)
[2017-05-11] MEDS ORDERED: oxyCODONE 20 mg ER Tab (oxyCONTIN) PO ONE (09:00)
[2017-05-11] MEDS ORDERED: Lactobacillus Acidophilus 500 MU Cap ONE (09:00)
[2017-05-11] MEDS ORDERED: Multivitamin With Minerals Tab PO ONE (09:00)
[2017-05-11] MEDS ORDERED: cefTRIAXone (Rocephin) 1 gm Inj ONE (09:00)
[2017-05-11] MEDS ORDERED: Gentamicin IV 80mg/50ml NS(PREMIX) IVPB ONE (09:00)
[2017-05-11] MEDS ORDERED: Insulin Lispro (humaLOG) 100 Units/ml Inj ONE (09:00)
[2017-05-12] MEDS: Sodium Chloride 0.9% 1,000 ML IV SCH ×3 (05:36→22:02)
[2017-05-12] MEDS: Multivitamin With Minerals Tab PO SCH (09:21)
[2017-05-12] MEDS: oxyCODONE 20 mg ER Tab (oxyCONTIN) PO SCH ×2 (09:26→15:57)
[2017-05-12] MEDS: Insulin Lispro (humaLOG) 100 Units/ml Inj SC SCH ×4 (09:53→21:58)
[2017-05-12] MEDS: Lactobacillus Acidophilus 500 MU Cap PO SCH ×2 (10:05→16:00)
--- NOTE | 2017-05-12 13:00 | CP.PCM.CON ---
History of Present Illness - History of Present Illness History of Present Illness: 61 year old male, presents to the ED with penile bleeding and penile pain x3 weeks. The patient reports that he has a marina catheter that he changes every month by his home health aide. 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 He states that today while having it changed they noticed there was foul smelling urine. The patient reports that the pain and foul smelling urine prompted them to come into the ED. Upon arrival to the ED the patient had a fever of 101. 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 referred for id eval for antibiotic management of penile phymosis/ uti/ with SIRS awaiting surgical rx /circumcision cultures pending Review of Systems - Constitutional Constitutional: As Per HPI, Anorexia, Chills, Fever, Malaise - EENT Eyes: absent: As Per HPI, Blind Spots, Blurred Vision, Change in Vision, Decreased Night Vision, Diplopia, Discharge, Dry Eye, Exophthalmos, Floaters, Irritation, Itchy Eyes, Loss of Peripheral Vision, Pain, Photophobia, Requires Corrective Lenses, Sees Flashes, Spots in Vision, Tunnel Vision, Other Visual Disturbances, Loss of Vision, Other Ears: absent: As Per HPI, Decreased Hearing, Ear Discharge, Ear Pain, Tinnitus, Abnormal Hearing, Disequilibrium, Dizziness, Other Nose/Mouth/Throat: absent: As Per HPI, Epistaxis, Nasal Congestion, Nasal Discharge, Nasal Obstruction, Nasal Trauma, Nose Pain, Post Nasal Drip, Sinus Pain, Sinus Pressure, Bleeding Gums, Change in Voice, Dental Pain, Dry Mouth, Dysphagia, Halitosis, Hoarsness, Lip Swelling, Mouth Lesions, Mouth Pain, Odynophagia, Sore Throat, Throat Swelling, Tongue Swelling, Facial Pain, Neck Pain, Neck Mass, Other - Cardiovascular Cardiovascular: absent: As Per HPI, Acrocyanosis, Chest Pain, Chest Pain at Rest , Chest Pain with Activity, Claudication, Diaphoresis, Dyspnea, Dyspnea on Exertion, Edema, Irregular Heart Rhythm, Pain Radiating to Arm/Neck/Jaw, Leg Edema, Leg Ulcers, Lightheadedness, Orthopnea, Palpitations, Paroxysmal Nocturnal Dyspnea, Pedal Edema, Radiating Pain, Rapid Heart Rate, Slow Heart Rate, Syncope, Other - Respiratory Respiratory: absent: As Per HPI, Cough, Dyspnea, Hemoptysis, Dyspnea on Exertion , Wheezing, Snoring, Stridor, Pain on Inspiration, Chest Congestion, Excessive Mucous Production, Change in Mucous Color, Pain with Coughing, Other - Gastrointestinal Gastrointestinal: absent: As Per HPI, Abdominal Pain, Belching, Bloating, Change in Bowel Habits, Change in Stool Character, Coffee Ground Emesis, Constipation, Cramping, Diarrhea, Dyspepsia, Dysphagia, Early Satiety, Excessive Flatus, Fecal Incontinence, Heartburn, Hematemesis, Hematochezia, Loose Stools, Melena, Nausea, Odynophagia, Temesmus, Vomiting, Other - Genitourinary Genitourinary: As Per HPI - Reproductive: Male Reproductive:Male: As Per HPI - Musculoskeletal Musculoskeletal: absent: As Per HPI, Abnormal Gait, Arthralgias, Atrophy, Back Pain, Deformity, Joint Swelling, Limited Range of Motion, Loss of Height, Muscle Cramps, Muscle Weakness, Myalgias, Neck Pain, Numbness, Radiating Pain into Limb, Stiffness, Tingling, Other - Integumentary Integumentary: absent: As Per HPI, Acne, Alopecia, Bleeding Lesions, Change in Hair, Change in Nails, Change in Pigmentation, Changing Lesions, Dry Skin, Erythema, Furuncle, Hirsutism, Lesions, New Lesions, Non-Healing Lesions, Photosensitivity, Pruritus, Rash, Skin Pain, Skin Ulcer, Sores, Striae, Swelling , Unusual Bruising, Wounds, Jaundice, Other - Neurological Neurological: As Per HPI - Psychiatric Psychiatric: absent: As Per HPI, Abnormal Sleep Pattern, Anhedonia, Anxiety, Auditory Hallucinations, Behavioral Changes, Change in Appetite, Change in Libido, Confusion, Depression, Difficulty Concentrating, Hallucinations, Homicidal Ideation, Hopelessness, Irritability, Memory Loss, Mood Swings, Panic Attacks, Paranoia, Suicidal Ideation, Visual Hallucinations, Tactile Hallucinations, Other - Endocrine Endocrine: absent: As Per HPI, Change in Body Appearance, Change in Libido, Cold Intolorance, Deepening of Voice, Excessive Sweating, Fatigue, Flushing, Heat Intolorance, Increase in Ring/Shoe/Hat Size, Palpitations, Polydipsia, Polyphagia, Polyuria, Other - Hematologic/Lymphatic Hematologic: absent: As Per HPI, Easy Bleeding, Easy Bruising, Lymphadenopathy, Other Past Patient History - Tetanus Immunizations Tetanus Immunization: Unknown - Past Medical History & Family History Past Medical History?: Yes - Past Social History Smoking Status: Never Smoked - CARDIAC Hx Cardiac Disorders: Yes - PULMONARY Hx Respiratory Disorders: Yes - NEUROLOGICAL Hx Neurological Disorder: Yes - HEENT Hx HEENT Problems: No - RENAL Hx Chronic Kidney Disease: No - ENDOCRINE/METABOLIC Hx Endocrine Disorders: Yes - HEMATOLOGICAL/ONCOLOGICAL Hx Anemia: Yes Hx Human Immunodeficiency Virus (HIV): No - INTEGUMENTARY Hx Dermatological Problems: No - MUSCULOSKELETAL/RHEUMATOLOGICAL Hx Falls: No - GASTROINTESTINAL Hx Gastritis: Yes - GENITOURINARY/GYNECOLOGICAL Hx Genitourinary Disorders: Yes - PSYCHIATRIC Hx Substance Use: No - SURGICAL HISTORY Hx Surgeries: Yes Other/Comment: Neck Sx, Right hand Sx, Right leg Sx cystoscopy - ANESTHESIA Hx Anesthesia: Yes Hx Anesthesia Reactions: No Hx Malignant Hyperthermia: No Meds Allergies/Adverse Reactions: Allergies Allergy/AdvReac Type Severity Reaction Status Date / Time No Known Allergies Allergy Verified 05/09/17 17:30 - Medications Medications: Current Medications Aspirin (Aspirin Chewable) 81 mg PO DAILY [facility] Last Admin: 05/12/17 09:20 Dose: 81 mg Atorvastatin Calcium (Lipitor) 20 mg PO HS [facility] Last Admin: 05/11/17 23:39 Dose: 20 mg Carvedilol (Coreg) 3.125 mg PO Q12H [facility] Last Admin: 05/12/17 09:21 Dose: 3.125 mg Clonazepam (Klonopin) 1 mg PO QAM [facility] Last Admin: 05/12/17 09:27 Dose: 1 mg Clonazepam (Klonopin) 2 mg PO HS [facility] Last Admin: 05/11/17 23:18 Dose: 2 mg Ergocalciferol (Drisdol 50,000 Intl Units Cap) 1 cap PO QWK [facility] Gabapentin (Neurontin) 300 mg PO BID [facility] Last Admin: 05/12/17 09:21 Dose: 300 mg Home Med (Naloxegol Oxalate [Movantik]) 25 mg PO DAILY [facility] Hydromorphone HCl (Dilaudid) 1 mg IVP Q3 PRN PRN Reason: Pain, severe (8-10) Last Admin: 05/12/17 11:08 Dose: 1 mg Ceftriaxone Sodium 1 gm/ (Sodium Chloride) 100 mls @ 100 mls/hr IVPB DAILY@ 2200 [facility] Last Admin: 05/11/17 23:21 Dose: 100 mls/hr Gentamicin Sulfate/Sodium Chloride (Gentamicin 80mg/50ml Ns) 80 mg in 50 mls @ 50 mls/hr IVPB 0600,1400,2200 [facility] Last Admin: 05/11/17 23:24 Dose: 50 mls/hr Sodium Chloride (Sodium Chloride 0.9%) 1,000 mls @ 125 mls/hr IV .Q8H [facility] Stop: 05/13/17 04:49 Last Admin: 05/12/17 12:36 Dose: Not Given Insulin Human Lispro (Humalog) 0 units SC ACHS [facility] PRN Reason: Protocol Last Admin: 05/12/17 12:33 Dose: 2 u Lactobacillus Acidophilus (Bacid Acidophilus) 1 cap PO BID [facility] Last Admin: 05/12/17 10:05 Dose: 1 cap Multivitamins/Minerals (Therapeutic-M Tab) 1 tab PO DAILY [facility] Last Admin: 05/12/17 09:21 Dose: 1 tab Oxycodone HCl (Oxycontin Extended Release Tab) 60 mg PO Q8H [facility] Last Admin: 05/12/17 09:26 Dose: 60 mg Polyethylene Glycol (Miralax) 17 gm PO DAILY PRN PRN Reason: Constipation Torsemide (Demadex) 10 mg PO DAILY PRN PRN Reason: leg swelling Last Admin: 05/12/17 09:20 Dose: 10 mg Physical Exam - Constitutional Appears: Non-toxic, Cachectic, Chronically Ill - Head Exam Head Exam: ATRAUMATIC, NORMAL INSPECTION, NORMOCEPHALIC - Eye Exam Eye Exam: EOMI, PERRL. absent: Scleral icterus - ENT Exam ENT Exam: Mucous Membranes Dry, Normal External Ear Exam, Normal Oropharynx - Neck Exam Neck exam: Negative for: Lymphadenopathy, Thyromegaly - Respiratory Exam Respiratory Exam: Decreased Breath Sounds, Rhonchi - Cardiovascular Exam Cardiovascular Exam: REGULAR RHYTHM, +S1, +S2 - GI/Abdominal Exam GI & Abdominal Exam: Diminished Bowel Sounds, Distended, Soft. absent: Guarding , Rebound, Rigid, Tenderness - Rectal Exam Rectal Exam: Deferred - Exam Exam: Uretheral Discharge. absent: Circumcision, NORMAL INSPECTION, Scrotal Swelling, Testicular Tenderness - Extremities Exam Extremities exam: Positive for: pedal pulses present. Negative for: calf tenderness, pedal edema, tenderness - Back Exam Back exam: absent: CVA tenderness (L), CVA tenderness (R), paraspinal tenderness - Neurological Exam Neurological exam: Alert, CN II-XII Intact, Motor Sensory Deficit, Oriented x3 Additional comments: weakness right upper/ lower extrem - Psychiatric Exam Psychiatric exam: Depressed - Skin Skin Exam: Dry Results - Vital Signs Recent Vital Signs: Last Vital Signs Temp 100 F H 05/12/17 08:00 Pulse 76 05/12/17 09:21 Resp 18 05/12/17 08:00 BP 110/63 05/12/17 09:21 Pulse Ox 97 05/12/17 08:00 - Labs Result Diagrams: 05/10/17 05:30 05/10/17 05:30 Labs: Laboratory Results - last 24 hr 05/11/17 05/11/17 05/12/17 15:57 21:23 05:34 POC Glucose (mg/dL) 224 H 165 H 215 H 05/12/17 11:22 POC Glucose (mg/dL) 203 H Assessment & Plan (1) Phimosis Status: Acute (2) Phimosis Status: Acute (3) UTI (urinary tract infection) with pyuria Status: Acute (4) UTI (urinary tract infection) with pyuria Status: Acute (5) UTI (urinary tract infection), bacterial Status: Acute (6) UTI (urinary tract infection), bacterial Status: Acute (7) DM2 (diabetes mellitus, type 2) Status: Acute (8) HTN (hypertension) Status: Acute (9) Infection of penis Status: Acute (10) Sepsis Status: Acute (11) Dehydration Status: Acute - Assessment and Plan (Free Text) Assessment: coag neg staph in blood is likely a contaminant urine shows enterococcus will adjust rx
--- NOTE | 2017-05-12 13:44 | CP.PCM.PN ---
Subjective - Date & Time of Evaluation Date of Evaluation: 05/12/17 Time of Evaluation: 13:00 - Subjective Subjective: Pt seen and examined. Complained of severe pain on penis/prepuce and right limbs in spite of just receiving IV Dilaudid. Objective - Vital Signs/Intake and Output Vital Signs (last 24 hours): Temp Pulse Resp BP Pulse Ox 99.1 F 81 18 90/48 L 97 05/12/17 13:00 05/12/17 13:00 05/12/17 13:00 05/12/17 13:00 05/12/17 13:00 - Medications Medications: Current Medications Aspirin (Aspirin Chewable) 81 mg PO DAILY [facility] Last Admin: 05/12/17 09:20 Dose: 81 mg Atorvastatin Calcium (Lipitor) 20 mg PO HS [facility] Last Admin: 05/11/17 23:39 Dose: 20 mg Carvedilol (Coreg) 3.125 mg PO Q12H [facility] Last Admin: 05/12/17 09:21 Dose: 3.125 mg Clonazepam (Klonopin) 1 mg PO QAM [facility] Last Admin: 05/12/17 09:27 Dose: 1 mg Clonazepam (Klonopin) 2 mg PO HS [facility] Last Admin: 05/11/17 23:18 Dose: 2 mg Ergocalciferol (Drisdol 50,000 Intl Units Cap) 1 cap PO QWK [facility] Gabapentin (Neurontin) 300 mg PO BID [facility] Last Admin: 05/12/17 09:21 Dose: 300 mg Home Med (Naloxegol Oxalate [Movantik]) 25 mg PO DAILY [facility] Hydromorphone HCl (Dilaudid) 1 mg IVP Q3 PRN PRN Reason: Pain, severe (8-10) Last Admin: 05/12/17 11:08 Dose: 1 mg Sodium Chloride (Sodium Chloride 0.9%) 1,000 mls @ 125 mls/hr IV .Q8H [facility] Stop: 05/13/17 04:49 Last Admin: 05/12/17 12:36 Dose: Not Given Ampicillin Sodium/Sulbactam (Sodium 3 gm/ Sodium Chloride) 100 mls @ 100 mls/ hr IVPB Q6 [facility] Insulin Human Lispro (Humalog) 0 units SC ACHS [facility] PRN Reason: Protocol Last Admin: 05/12/17 12:33 Dose: 2 u Lactobacillus Acidophilus (Bacid Acidophilus) 1 cap PO BID [facility] Last Admin: 05/12/17 10:05 Dose: 1 cap Multivitamins/Minerals (Therapeutic-M Tab) 1 tab PO DAILY [facility] Last Admin: 05/12/17 09:21 Dose: 1 tab Oxycodone HCl (Oxycontin Extended Release Tab) 60 mg PO Q8H [facility] Last Admin: 05/12/17 09:26 Dose: 60 mg Polyethylene Glycol (Miralax) 17 gm PO DAILY PRN PRN Reason: Constipation Torsemide (Demadex) 10 mg PO DAILY PRN PRN Reason: leg swelling Last Admin: 05/12/17 09:20 Dose: 10 mg - Labs Labs: 05/10/17 05:30 05/10/17 05:30 PT 10.9 Seconds (9.8-13.1) 05/09/17 20:30 INR 1.0 (0.9-1.2) 05/09/17 20:30 APTT 19.3 Seconds (25.6-37.1) L 05/09/17 20:30 - Head Exam Head Exam: ATRAUMATIC - Eye Exam Eye Exam: absent: Scleral icterus - ENT Exam ENT Exam: Mucous Membranes Moist - Neck Exam Neck Exam: absent: Meningismus - Respiratory Exam Respiratory Exam: absent: Rhonchi, Wheezes, Respiratory Distress - Cardiovascular Exam Cardiovascular Exam: REGULAR RHYTHM, +S1, +S2 - GI/Abdominal Exam GI & Abdominal Exam: Soft. absent: Tenderness - Rectal Exam Rectal Exam: Deferred - Neurological Exam Neurological Exam: Alert, Oriented x3 - Psychiatric Exam Psychiatric exam: Agitated - Skin Skin Exam: Dry Assessment and Plan (1) Infection of penis Status: Acute (2) Sepsis Status: Acute (3) DM2 (diabetes mellitus, type 2) Status: Acute (4) HTN (hypertension) Status: Acute (5) CVA (cerebral infarction) Status: Chronic - Assessment and Plan (Free Text) Assessment: 61 yo male with history of DM2, HTN and 3 previous CVAs causing him to be bed- bound with chronic indwelling marina catheter brought by because of pain and swelling of penis/prepuce with blood and pus oozing from the prepuce associated with fever and chills. blood and pus oozing from the urethral meatus and swollen prepuce associated with fever and chills. (1) Infected Penis/Prepuce patient continued to scream from pain wound culture from prepuce: Enterococcus faecalis switch antibiotic to Unasyn 3gm IV q 6hrs ID consult with Dr Ai Devi recommended circumcision once infection is controlled continue pain management patient maybe transferred to regular floor (2) Sepsis no leukocytosis but had low grade fever earlier continue IV hydration with NSS Tylenol 650mg po q 4hrs prn for fever (3) DM2 (diabetes mellitus, type 2) BS relatively controlled accuchek ACHS with low Lispro coverage HgA1C: 9.3 (4) HTN (hypertension) BP stable. continue low dose Carvedilol (5) Previous CVA refer to PT for evaluation and management continue ASA, statin and BP control pain management consult with Dr Puri
[2017-05-12] MEDS: Ampicillin/Sulbactam 3 GM in Sodium Chloride 0.9% 100 ML IVPB SCH ×2 (16:01→22:03)
[2017-05-13] MEDS: oxyCODONE 10 mg ER Tab (oxyCONTIN) PO SCH ×3 (00:33→17:49)
[2017-05-13] MEDS: Ampicillin/Sulbactam 3 GM in Sodium Chloride 0.9% 100 ML IVPB SCH ×3 (03:17→15:51)
[2017-05-13] MEDS: Insulin Lispro (humaLOG) 100 Units/ml Inj SC SCH ×4 (06:45→22:21)
[2017-05-13] MEDS: Lactobacillus Acidophilus 500 MU Cap PO SCH ×3 (08:54→18:47)
[2017-05-13] MEDS: Multivitamin With Minerals Tab PO SCH (08:55)
--- NOTE | 2017-05-13 11:22 | CP.PCM.DIS ---
Provider - Provider Date of Admission: 05/09/17 19:22 Attending physician: Christiano Hilliard MD Time Spent in preparation of Discharge (in minutes): 20 Diagnosis - Discharge Diagnosis (1) DM2 (diabetes mellitus, type 2) Status: Acute (2) HTN (hypertension) Status: Acute (3) Phimosis Status: Acute (4) CVA (cerebral infarction) Status: Chronic Hospital Course - Lab Results Lab Results: Micro Results 05/09/17 22:30 Blood S.aureus & Coag-Neg Staph PNA FISH - Final 05/09/17 22:30 Blood Blood Culture - Final Coagulase Neg Staphylococcus 05/09/17 22:30 Blood Gram Stain - Final 05/09/17 22:00 Blood Blood Culture - Preliminary NO GROWTH AFTER 3 DAYS Most Recent Lab Values WBC 6.9 K/uL (4.8-10.8) 05/10/17 05:30 RBC 3.75 Mil/uL (4.40-5.90) L 05/10/17 05:30 Hgb 11.4 g/dL (12.0-18.0) L D 05/10/17 05:30 Hct 34.0 % (35.0-51.0) L 05/10/17 05:30 MCV 90.6 fl (80.0-94.0) 05/10/17 05:30 MCH 30.4 pg (27.0-31.0) 05/10/17 05:30 MCHC 33.5 g/dL (33.0-37.0) 05/10/17 05:30 RDW 14.5 % (11.5-14.5) 05/10/17 05:30 Plt Count 248 K/uL (130-400) 05/10/17 05:30 MPV 6.9 fl (7.2-11.7) L 05/10/17 05:30 Neut % (Auto) 49.7 % (50.0-75.0) L 05/10/17 05:30 Lymph % (Auto) 36.0 % (20.0-40.0) 05/10/17 05:30 [place] % (Auto) 11.5 % (0.0-10.0) H 05/10/17 05:30 Eos % (Auto) 2.2 % (0.0-4.0) 05/10/17 05:30 Baso % (Auto) 0.6 % (0.0-2.0) 05/10/17 05:30 Neut # 3.4 K/uL (1.8-7.0) 05/10/17 05:30 Lymph # 2.5 K/uL (1.0-4.3) 05/10/17 05:30 [place] # 0.8 K/uL (0.0-0.8) 05/10/17 05:30 Eos # 0.2 K/uL (0.0-0.7) 05/10/17 05:30 Baso # 0.0 K/uL (0.0-0.2) 05/10/17 05:30 PT 10.9 Seconds (9.8-13.1) 05/09/17 20:30 INR 1.0 (0.9-1.2) 05/09/17 20:30 APTT 19.3 Seconds (25.6-37.1) L 05/09/17 20:30 pO2 35 mm/Hg (30-55) 05/09/17 21:00 VBG pH 7.40 (7.32-7.43) 05/09/17 21:00 VBG pCO2 48 mmHg (40-60) 05/09/17 21:00 VBG HCO3 27.2 mmol/L 05/09/17 21:00 VBG Total CO2 31.2 mmol/L (22-28) H 05/09/17 21:00 VBG O2 Sat (Calc) 77.9 % (40-65) H 05/09/17 21:00 VBG Base Excess 4.0 mmol/L (0.0-2.0) H 05/09/17 21:00 VBG Potassium 3.5 mmol/L (3.6-5.2) L 05/09/17 21:00 Sodium 134.0 mmol/L (132-148) 05/09/17 21:00 Chloride 98.0 mmol/L (98-107) 05/09/17 21:00 Glucose 233 mg/dL (75-110) H 05/09/17 21:00 Lactate 1.1 mmol/L (0.7-2.1) 05/09/17 21:00 FiO2 21.0 % 05/09/17 21:00 Blood Gas Comments Vbg was done at 22:00 : 05/09/17 21:00 Crit Value Read Back Y 05/09/17 21:00 Sodium 137 mmol/l (132-148) 05/10/17 05:30 Potassium 3.8 MMOL/L (3.6-5.0) 05/10/17 05:30 Chloride 108 mmol/L (98-107) H 05/10/17 05:30 Carbon Dioxide 21 mmol/L (22-30) L 05/10/17 05:30 Anion Gap 12 (10-20) 05/10/17 05:30 BUN 9 mg/dl (9-20) 05/10/17 05:30 Creatinine 0.8 mg/dL (0.8-1.5) 05/10/17 05:30 Est GFR ( Amer) > 60 05/10/17 05:30 Est GFR (Non-Af Amer) > 60 05/10/17 05:30 POC Glucose (mg/dL) 243 mg/dL (65-110) H 05/13/17 05:33 Random Glucose 159 mg/dL (75-110) H 05/10/17 05:30 Hemoglobin A1c 9.3 % (4.2-6.5) H 05/10/17 04:00 Lactic Acid 0.7 MMOL/L (0.7-2.1) 05/10/17 03:32 Calcium 8.2 mg/dL (8.4-10.2) L 05/10/17 05:30 Phosphorus 3.7 mg/dl (2.5-4.5) 05/09/17 20:30 Magnesium 1.8 MG/DL (1.6-2.3) 05/09/17 20:30 Total Bilirubin 0.9 mg/dl (0.2-1.3) 05/09/17 20:30 AST 34 U/L (17-59) 05/09/17 20:30 ALT 31 U/L (21-72) 05/09/17 20:30 Alkaline Phosphatase 113 U/L (38-126) 05/09/17 20:30 Troponin I < 0.0120 ng/mL (0.00-0.120) 05/09/17 20:30 Total Protein 8.4 G/DL (6.3-8.2) H 05/09/17 20:30 Albumin 4.1 g/dL (3.5-5.0) 05/09/17 20:30 Globulin 4.3 gm/dL (2.2-3.9) H 05/09/17 20:30 Albumin/Globulin Ratio 1.0 (1.0-2.1) 05/09/17 20:30 Venous Blood Potassium 3.5 mmol/L (3.6-5.2) L 05/09/17 21:00 Urine Color Straw (YELLOW) 05/09/17 19:00 Urine Clarity Clear (Clear) 05/09/17 19:00 Urine pH 6.0 (5.0-8.0) 05/09/17 19:00 Ur Specific [place] 1.008 (1.003-1.030) 05/09/17 19:00 Urine Protein Negative mg/dL (NEGATIVE) 05/09/17 19:00 Urine Glucose (UA) Neg mg/dL (Normal) 05/09/17 19:00 Urine Ketones Negative mg/dL (NEGATIVE) 05/09/17 19:00 Urine Blood Negative (NEGATIVE) 05/09/17 19:00 Urine Nitrate Negative (NEGATIVE) 05/09/17 19:00 Urine Bilirubin Negative (NEGATIVE) 05/09/17 19:00 Urine Urobilinogen 0.2-1.0 mg/dL (0.2-1.0) 05/09/17 19:00 Ur Leukocyte Esterase [place]/uL (Negative) 05/09/17 19:00 Urine RBC (Auto) 1 /hpf (0-3) 05/09/17 19:00 Urine Microscopic WBC 4 /hpf (0-5) 05/09/17 19:00 Urine Bacteria Rare (<OCC) 05/09/17 19:00 - Hospital Course Hospital Course: 61 yo male with history of DM2, HTN and 3 previous CVAs causing him to be bed- bound with chronic indwelling marina catheter brought by because of pain and swelling of penis/prepuce with blood and pus oozing from the prepuce associated with fever and chills. Urology consulted, as well as ID, for phimosis. Consults appreciated and followed. Patient for outpt circumcision. Will cont Unasyn IV in TCU, blood cx likely contaminant. Pain management consult with Dr. Puri appreciated and followed as well. (1) Infected Penis/Prepuce wound culture from prepuce: Enterococcus faecalis switch antibiotic to Unasyn 3gm IV q 6hrs ID consult with Dr Ai Devi recommended circumcision once infection is controlled continue pain management (2) Sepsis no leukocytosis but had low grade fever earlier continue IV hydration with NSS Tylenol 650mg po q 4hrs prn for fever (3) DM2 (diabetes mellitus, type 2) BS relatively controlled accuchek ACHS with low Lispro coverage HgA1C: 9.3 (4) HTN (hypertension) BP stable. 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 absent: Organomegaly, Tenderness - Extremities Exam Extremities exam: normal capillary refill, pedal pulses present - Back Exam Back exam: absent: CVA tenderness (L), CVA tenderness (R) - Neurological Exam Neurological exam: Alert - Psychiatric Exam Psychiatric exam: Normal Affect, Normal Mood - Skin Skin Exam: Dry, Warm Discharge Plan - Follow Up Plan Condition: SERIOUS Disposition: TRANSF TO SNF
--- NOTE | 2017-05-13 13:10 | CP.PCM.PN ---
Subjective - Date & Time of Evaluation Date of Evaluation: 05/13/17 Time of Evaluation: 09:00 - Subjective Subjective: c/o pain iv rx in progress Objective - Vital Signs/Intake and Output Vital Signs (last 24 hours): Temp Pulse Resp BP Pulse Ox 98.2 F 76 18 108/62 94 L 05/13/17 08:00 05/13/17 10:00 05/13/17 08:00 05/13/17 08:57 05/13/17 08:00 Intake and Output: 05/13/17 05/13/17 06:59 18:59 Output Total 725 Balance -725 - Medications Medications: Current Medications Aspirin (Aspirin Chewable) 81 mg PO DAILY [facility] Last Admin: 05/13/17 08:54 Dose: 81 mg Atorvastatin Calcium (Lipitor) 20 mg PO HS [facility] Last Admin: 05/12/17 21:59 Dose: 20 mg Carvedilol (Coreg) 3.125 mg PO Q12H [facility] Last Admin: 05/13/17 08:57 Dose: 3.125 mg Clonazepam (Klonopin) 1 mg PO QAM [facility] Last Admin: 05/13/17 08:55 Dose: 1 mg Clonazepam (Klonopin) 2 mg PO HS [facility] Last Admin: 05/12/17 22:02 Dose: 2 mg Ergocalciferol (Drisdol 50,000 Intl Units Cap) 1 cap PO QWK [facility] Gabapentin (Neurontin) 300 mg PO BID [facility] Last Admin: 05/13/17 08:54 Dose: 300 mg Home Med (Naloxegol Oxalate [Movantik]) 25 mg PO DAILY [facility] Hydromorphone HCl (Dilaudid) 1 mg IVP Q3 PRN PRN Reason: Pain, severe (8-10) Last Admin: 05/13/17 10:32 Dose: 1 mg Ampicillin Sodium/Sulbactam (Sodium 3 gm/ Sodium Chloride) 100 mls @ 100 mls/ hr IVPB Q6 [facility] Last Admin: 05/13/17 08:59 Dose: 100 mls/hr Insulin Human Lispro (Humalog) 0 units SC ACHS ROME PRN Reason: Protocol Last Admin: 05/13/17 11:50 Dose: 1 units Lactobacillus Acidophilus (Bacid Acidophilus) 1 cap PO BID [facility] Last Admin: 05/13/17 08:54 Dose: 1 cap Multivitamins/Minerals (Therapeutic-M Tab) 1 tab PO DAILY [facility] Last Admin: 05/13/17 08:55 Dose: 1 tab Oxycodone HCl (Oxycontin Extended Release Tab) 60 mg PO Q8 [facility] Last Admin: 05/13/17 11:48 Dose: 60 mg Polyethylene Glycol (Miralax) 17 gm PO DAILY PRN PRN Reason: Constipation Last Admin: 05/12/17 16:02 Dose: 17 gm Torsemide (Demadex) 10 mg PO DAILY PRN PRN Reason: leg swelling Last Admin: 05/13/17 08:58 Dose: 10 mg - Labs Labs: 05/10/17 05:30 05/10/17 05:30 PT 10.9 Seconds (9.8-13.1) 05/09/17 20:30 INR 1.0 (0.9-1.2) 05/09/17 20:30 APTT 19.3 Seconds (25.6-37.1) L 05/09/17 20:30 - Constitutional Appears: Non-toxic, Chronically Ill - Head Exam Head Exam: NORMOCEPHALIC - Eye Exam Eye Exam: PERRL. absent: Scleral icterus - ENT Exam ENT Exam: Mucous Membranes Dry, Normal External Ear Exam - Neck Exam Neck Exam: absent: Lymphadenopathy - Respiratory Exam Respiratory Exam: Decreased Breath Sounds - Cardiovascular Exam Cardiovascular Exam: REGULAR RHYTHM - GI/Abdominal Exam GI & Abdominal Exam: Distended, Soft - Rectal Exam Rectal Exam: Deferred Assessment and Plan (1) Phimosis Status: Acute (2) Phimosis Status: Acute (3) UTI (urinary tract infection) with pyuria Status: Acute (4) UTI (urinary tract infection) with pyuria Status: Acute (5) UTI (urinary tract infection), bacterial Status: Acute (6) UTI (urinary tract infection), bacterial Status: Acute (7) DM2 (diabetes mellitus, type 2) Status: Acute (8) HTN (hypertension) Status: Acute (9) Infection of penis Status: Acute (10) Sepsis Status: Acute (11) Dehydration Status: Acute
[2017-05-13 13:25] VITALS: RESP 20
[2017-05-13 23:54] VITALS: BP 116/71; PULSE 68; TEMP 97.5; O2SAT 95
== END 2017-05-14 00:10 | DRG 872 ==
LOC: H.ER 17:28 → H.ERHOLD 19:22 → H.TEL 23:32
PROC: 06HM33Z Insertion of Infusion Device into Right Femoral Vein, Percutaneous Approach (ICD-10-PCS; principal; 2017-05-09)
DX: A41.9 Sepsis, unspecified organism (principal); G82.20 Paraplegia, unspecified; E11.40 Type 2 diabetes mellitus with diabetic neuropathy, unspecified; T83.511A Infection and inflammatory reaction due to indwelling urethral catheter, initial encounter; N39.0 Urinary tract infection, site not specified; N48.89 Other specified disorders of penis; B95.2 Enterococcus as the cause of diseases classified elsewhere; N47.1 Phimosis; Z74.01 Bed confinement status; E86.0 Dehydration; I10 Essential (primary) hypertension; E78.00 Pure hypercholesterolemia, unspecified; G89.29 Other chronic pain; N47.8 Other disorders of prepuce; F41.9 Anxiety disorder, unspecified; F32.9 Major depressive disorder, single episode, unspecified; K29.70 Gastritis, unspecified, without bleeding; N48.29 Other inflammatory disorders of penis; Z86.73 Personal history of transient ischemic attack (TIA), and cerebral infarction without residual deficits; Y84.6 Urinary catheterization as the cause of abnormal reaction of the patient, or of later complication, without mention of misadventure at the time of the procedure; I69.398 Other sequelae of cerebral infarction

== ENCOUNTER 2017-07-15 15:29 | Inpatient (IN) | payer MEDICARE, MEDICAID ==
[2017-07-15 15:29] VITALS: BMI 25.8
[2017-07-15] MEDS ORDERED: Oxycodone/Acetaminophen 5/325 mg Tab PO STA (15:49)
[2017-07-15 16:09] LABS: VENOUS BLOOD GAS PCO2 54 mmHg (40-60)
--- NOTE | 2017-07-15 16:12 | ED PDOC ---
Lower Extremity Pain/Injury Time Seen by Provider: 07/15/17 15:34 Chief Complaint (Nursing): Lower Extremity Problem/Injury Chief Complaint (Provider): Bilateral lower extremity swelling History Per: Patient History/Exam Limitations: no limitations Onset/Duration Of Symptoms: Days Current Symptoms Are (Timing): Still Present Additional Complaint(s): The pt is a 62yo male, with PMHx of CVA and resultant right sided hemiparesis, hypertnesion, hypercholesterolemia, peripheral edema, presents to the ED for evaluation of bilateral leg swelling, which has been ongoing for the past two weeks. Pt reports he has been taking lasix with no relief. He additionally states, the swelling has been occurring on and off for the past few months but this instance was the worst. Pt also reports mild shortness of breath, diffuse bodyaches - more present on his right side due to history of hemiparesis. He denies any cough and states he is currently on pain medications at home. Pt's home health aide is at bedside and reports pt's right leg seems more edematous than the left. Pt offers no additional medical complaints. PCP: Dr. Berger Past Medical History Reviewed: Historical Data, Nursing Documentation, Vital Signs Vital Signs: Last Vital Signs Temp 98.0 F 07/15/17 15:30 Pulse 60 07/15/17 15:30 Resp 16 07/15/17 15:30 BP 121/69 07/15/17 15:30 Pulse Ox 99 07/15/17 15:30 - Medical History PMH: Anemia, Anxiety, CVA (with left lower and right upper and lower paralysis) , Depression, Gastritis, HTN, Hypercholesterolemia, Peripheral Edema, Pneumonia Denies: HIV, Chronic Kidney Disease - Surgical History Surgical History: No Surg Hx - Family History Family History: States: Unknown Family Hx - Social History Current smoker - smoking cessation education provided: No Alcohol: None Drugs: Denies - Immunization History Hx Tetanus Toxoid Vaccination: No Hx Influenza Vaccination: No Hx Pneumococcal Vaccination: No - Home Medications Home Medications: Ambulatory Orders Medication Instructions Recorded Clonazepam [Klonopin] 2 mg PO HS 05/09/17 Ergocalciferol (Vitamin D2) 50,000 unit PO QWK 05/09/17 [Vitamin D2] Gabapentin [Neurontin] 300 mg PO BID 05/09/17 Lactobacillus Acidophilus 1 cap PO BID 05/09/17 [Acidophilus] Multivitamin [Multi-Vitamin Daily] 1 tab PO DAILY 05/09/17 Polyethylene Glycol 3350 [Miralax] 17 gm PO DAILY PRN 05/09/17 clonazePAM [Klonopin] 1 mg PO QAM 05/09/17 Aspirin [Aspirin Chewable] 81 mg PO DAILY 05/13/17 Atorvastatin [Lipitor] 20 mg PO HS tab 05/13/17 Carvedilol [Coreg] 3.125 mg PO Q12H #60 tab 05/13/17 Carvedilol [Coreg] 6.25 mg PO Q12H PRN #60 05/13/17 Gabapentin [Neurontin] 300 mg PO BID #60 cap 05/13/17 Linezolid [Zyvox] 600 mg PO Q12 #20 tab 05/13/17 Naloxegol Oxalate [Movantik] 25 mg PO DAILY #60 05/13/17 Torsemide [Demadex] 10 mg PO DAILY PRN #30 05/13/17 Torsemide [Demadex] 10 mg PO DAILY PRN #30 tab 05/13/17 oxyCODONE [oxyCONTIN Extended 60 mg PO Q8 05/13/17 Release Tab] - Allergies Allergies/Adverse Reactions: Allergies Allergy/AdvReac Type Severity Reaction Status Date / Time No Known Allergies Allergy Verified 05/09/17 17:30 Review of Systems ROS Statement: Except As Marked, All Systems Reviewed And Found Negative Constitutional: Positive for: Other (diffuse bodyaches more prominent on right side) Cardiovascular: Positive for: Edema. Negative for: Chest Pain Respiratory: Positive for: Shortness of Breath. Negative for: Cough Gastrointestinal: Negative for: Nausea, Vomiting, Abdominal Pain Musculoskeletal: Positive for: Arm Pain, Leg Pain, Other (bilateral leg edema) Skin: Positive for: Other Physical Exam - Reviewed Nursing Documentation Reviewed: Yes Vital Signs Reviewed: Yes - Physical Exam Appears: Positive for: Non-toxic, In Acute Distress Head Exam: Positive for: ATRAUMATIC, NORMOCEPHALIC Skin: Positive for: Warm, Pallor, Rash (erythema RIGHT anterior tibia) Eye Exam: Positive for: EOMI, PERRL ENT: Positive for: Other (dry muc memb) Neck: Positive for: Painless ROM, Supple Cardiovascular/Chest: Positive for: Regular Rate, Rhythm, Chest Non Tender. Negative for: Murmur Respiratory: Positive for: Decreased Breath Sounds (bases). Negative for: Accessory Muscle Use, Rhonchi, Wheezing Gastrointestinal/Abdominal: Positive for: Soft. Negative for: Tenderness Back: Positive for: Normal Inspection. Negative for: L CVA Tenderness, R CVA Tenderness, Vertebral Tenderness Extremity: Positive for: Other (RIGHT hemiparesis, marked tense bilateral lower leg and pedal edema, bilateral foot drop, RIGHT upper extremity diffusely tender with contraction and mild edema) Lymphatic: Negative for: Adenopathy Neurologic/Psych: Positive for: Alert, Oriented (x3), Motor/Sensory Deficits ( RIGHT hemiparesis), Other. Negative for: Aphasia - Laboratory Results Result Diagrams: 07/15/17 16:27 07/15/17 16:27 - ECG ECG Rhythm: Positive for: Normal ST Segment, Atrial Fibrillation (rate controlled) Rate: 59 O2 Sat by Pulse Oximetry: 99 (RA) Pulse Ox Interpretation: Normal Medical Decision Making Medical Decision Making: Time: 1540 Impression: Leg edema Differrential: CHF, fluid overload, kidney failure, cellulitis, DVT Plan: -- Labs -- Percocet 2 Tab PO -- CXR -- US Doppler b/l lower extremities --Reassess Accession No. : [id number] Patient Name / ID : SANTI CABRALES / [id number] Exam Date : 07/15/2017 16:31:34 ( Approved ) Study Comment : Sex / Age : M / 62Y Creator : Efraín Barnes MD Dictator : [employer] Operator : [employer] Laborer : Efraín Barnes MD Approver2 : Report Date : 07/15/2017 17:32:00 My Comment : [facility] Division of Radiology [address] [place] [address] Tel. no. Patient Name: SAMRA HANCOCK Pt. Address: [address] [place] [address] Rec #: [id number] [place] [address]: Scott TREVINO, Stefany Arriaza Pt CELL Order Location: [facility] : 1955 Male Age: 62 Order #: [id number] Reason for exam: bilateral leg edema Ultrasound DUPLEX LOWER EXTRM VEIN BILAT Exam Date: 07/15/17 This imaging exam was performed at [facility] EXAM: US Duplex Bilateral Lower Extremity Veins CLINICAL HISTORY: 62 years old, male; Pain; Leg, lower; Bilateral; Additional info: Bilateral leg edema TECHNIQUE: Real-time ultrasound scan of the veins of the bilateral lower extremities with color Doppler flow, spectral waveform analysis and compression. COMPARISON: No relevant prior studies available. FINDINGS: Right deep veins: Normal color and spectral Doppler flow. Normal compressibility. No deep vein thrombosis from common femoral to popliteal vein. Right superficial veins: Unremarkable. Left deep veins: Normal color and spectral Doppler flow. Normal compressibility. No deep vein thrombosis from common femoral to popliteal vein. Left superficial veins: Unremarkable. Soft tissues: Edema within soft tissues. IMPRESSION: 1. No evidence of DVT within the lower extremities. 2. Incidental/non-acute findings are described above. Dictated By: Efraín Barnes MD Dictated Date/Time: 07/15/171731 Signed By: Efarín Barnes MD Date Signed: 1731 Transcribed By: ENRICO Transcribe Date/Time : 07/15/171731 [id number] Labs demonstrate UTI otherwise no emergently significant abnormalities (BNP normal, WBC/lactic acid normal, trop normal, kidney function normal, albumin normal) Source of edema unclear at this time Will hospitalize for RIGHT leg cellulitis, severe leg edema, UTI Scribe Attestation: Documented by Lisandra Collado acting as a scribe for Stefany Chavez MD Provider Scribe Attestation: All medical record entries made by the Scribe were at my direction and personally dictated by me. I have reviewed the chart and agree that the record accurately reflects my personal performance of the history, physical exam, medical decision making, and the department course for this patient. I have also personally directed, reviewed, and agree with the discharge instructions and disposition. Disposition - Clinical Impression Clinical Impression: UTI (lower urinary tract infection), Cellulitis, leg, Leg edema Counseled Patient/Family Regarding: Studies Performed, Diagnosis - Disposition Disposition Time: 17:00 Condition: SERIOUS - Pt Status Changed To: Hospital Disposition Of: Inpatient - Admit Certification Admit to Inpatient:: After my assessment, the patient will require hospitalization for at least two midnights. This is because of the severity of symptoms shown, intensity of services needed, and/or the medical risk in this patient being treated as an outpatient. - POA Present On Arrival: Falls Or Trauma (risk), Cath Associated UTI
[2017-07-15 16:34] LABS: BASO % 0.6 % (0.0-2.0); EOS # 0.2 K/uL (0.0-0.7); EOS % 2.4 % (0.0-4.0); HEMATOCRIT 41.9 % (35.0-51.0); LYMPH # 3.7 K/uL (1.0-4.3); LYMPH % 51.2 % (20.0-40.0); MEAN CELL VOLUME 92.7 fl (80.0-94.0); MEAN CORPUSCULAR HEMOGLOBIN 30.3 pg (27.0-31.0); MEAN CORPUSCULAR HGB CONC 32.7 g/dL (33.0-37.0); MEAN PLATELET VOLUME 7.3 fl (7.2-11.7); MONO # 0.7 K/uL (0.0-0.8); MONO % 9.2 % (0.0-10.0); NEUT # 2.7 K/uL (1.8-7.0); NEUT % 36.6 % (50.0-75.0); NRBC % 0.1 % (0.0-0.0); RED CELL DISTRIBUTION WIDTH 14.7 % (11.5-14.5); WHITE BLOOD COUNT 7.3 K/uL (4.8-10.8)
[2017-07-15 16:45] LABS: ALB/GLOB RATIO 1.1 (1.0-2.1); ALKALINE PHOSPHATASE 80 U/L (38-126); ALT/SGPT 26 U/L (21-72); AST/SGOT 39 U/L (17-59); BILIRUBIN,TOTAL 0.9 mg/dl (0.2-1.3); BLOOD UREA NITROGEN 11 mg/dl (9-20); CALCIUM 9.4 mg/dL (8.4-10.2); CARBON DIOXIDE 26 mmol/L (22-30); CHLORIDE 99 mmol/L (98-107); GFR AFRICAN-AMERICAN > 60; GLUCOSE,RANDOM 196 mg/dL (75-110); MAGNESIUM 1.9 MG/DL (1.6-2.3); SODIUM 135 mmol/l (132-148); TOTAL PROTEIN 8.1 G/DL (6.3-8.2)
[2017-07-15 16:46] LABS: PARTIAL THROMBOPLASTIN TIME 19.2 Seconds (25.6-37.1)
[2017-07-15 16:56] LABS: POTASSIUM 5.1 MMOL/L (3.6-5.0)
[2017-07-15 17:10] LABS: RBC URINE 462 /hpf (0-3); URINE BACTERIA OCC (<OCC); URINE BILIRUBIN NEGATIVE (NEGATIVE); URINE BLOOD SMALL (NEGATIVE); URINE COLOR YELLOW (YELLOW); URINE GLUCOSE (UA) NEG (Normal); URINE KETONE NEGATIVE (NEGATIVE); URINE LEUKOCYTE ESTERASE LARGE Leu/uL (Negative); URINE PROTEIN 100 mg/dL (NEGATIVE); URINE UROBILINOGEN 0.2-1.0 mg/dL (0.2-1.0); WBC URINE 230 /hpf (0-5)
[2017-07-15] MEDS ORDERED: Oxycodone/Acetaminophen 5/325 mg Tab ONE (17:22)
--- NOTE | 2017-07-15 17:32 | US ---
EXAM: US Duplex Bilateral Lower Extremity Veins CLINICAL HISTORY: 62 years old, male; Pain; Leg, lower; Bilateral; Additional info: Bilateral leg edema TECHNIQUE: Real-time ultrasound scan of the veins of the bilateral lower extremities with color Doppler flow, spectral waveform analysis and compression. COMPARISON: No relevant prior studies available. FINDINGS: Right deep veins: Normal color and spectral Doppler flow. Normal compressibility. No deep vein thrombosis from common femoral to popliteal vein. Right superficial veins: Unremarkable. Left deep veins: Normal color and spectral Doppler flow. Normal compressibility. No deep vein thrombosis from common femoral to popliteal vein. Left superficial veins: Unremarkable. Soft tissues: Edema within soft tissues. IMPRESSION: 1. No evidence of DVT within the lower extremities. 2. Incidental/non-acute findings are described above.
[2017-07-15] MEDS ORDERED: Piperacillin/Tazobact 3.375 GM in Sodium Chloride 0.9% 100 ML IV STA (17:41)
[2017-07-15] MEDS ORDERED: Vancomycin 1 g Inj ONE (17:47)
[2017-07-15] MEDS ORDERED: Piperacillin/Tazobact 3.375 gm Inj IVPB ONE (17:48)
[2017-07-15] MEDS ORDERED: POLYETHYLENE GLYCOL 3350 17 GM/Dose PACKET PO PRN (18:52)
[2017-07-15] MEDS ORDERED: Ergocalciferol 50,000 Intl Units Cap PO SCH (19:00)
--- NOTE | 2017-07-15 19:04 | CP.PCM.HP ---
History of Present Illness - History of Present Illness History of Present Illness: 62 yo male with history of DM2 and 2 previous CVA leaving him with right sided hemiparesis and being bed ridden since one year ago brought by to the ER because of worsening bilateral leg swelling since 2 weeks ago. His legs had been swollen since becoming bed ridden but the last few days they had gotten worse. Patient also had chronic pain all over the body which also had gotten worse the last few days. Denied fever or chills. Present on Admission - Present on Admission Any Indicators Present on Admission: No History of DVT/PE: No History of Uncontrolled Diabetes: No Urinary Catheter: No Decubitus Ulcer Present: No Review of Systems - Review of Systems All systems: reviewed and no additional remarkable complaints except (aside from those mentioned above, 12 point system review were negative by me) Past Patient History - Tetanus Immunizations Tetanus Immunization: Unknown - Past Medical History & Family History Past Medical History?: Yes Past Family History: Reviewed and not pertinent - Past Social History Smoking Status: Unknown If Ever Smoked Alcohol: None Drugs: Denies Home Situation {Lives}: With Family - CARDIAC Hx Hypercholesterolemia: Yes Hx Hypertension: Yes Hx Peripheral Edema: Yes - PULMONARY Hx Respiratory Disorders: Yes - NEUROLOGICAL Hx Neurological Disorder: Yes HX Cerebrovascular Accident: Yes Hx Meningitis: Yes - HEENT Hx HEENT Problems: No - RENAL Hx Chronic Kidney Disease: No - ENDOCRINE/METABOLIC Hx Endocrine Disorders: Yes Hx Diabetes Mellitus Type 2: Yes - HEMATOLOGICAL/ONCOLOGICAL Hx Anemia: Yes - INTEGUMENTARY Hx Dermatological Problems: No - MUSCULOSKELETAL/RHEUMATOLOGICAL Hx Musculoskeletal Disorders: Yes - GASTROINTESTINAL Hx Gastrointestinal Disorders: Yes Hx Gastritis: Yes - GENITOURINARY/GYNECOLOGICAL Hx Genitourinary Disorders: Yes Hx Incontinence: Yes Hx Prostate Problems: Yes Hx Urinary Tract Infection: Yes (urinary retention) - PSYCHIATRIC Hx Psychophysiologic Disorder: Yes Hx Anxiety: Yes Hx Depression: Yes - SURGICAL HISTORY Hx Surgeries: Yes Other/Comment: Neck Sx, Right hand Sx, Right leg Sx, cystoscopy - ANESTHESIA Hx Anesthesia: Yes Hx Anesthesia Reactions: No Hx Malignant Hyperthermia: No Meds Allergies/Adverse Reactions: Allergies Allergy/AdvReac Type Severity Reaction Status Date / Time No Known Allergies Allergy Verified 05/09/17 17:30 Physical Exam - Constitutional Appears: No Acute Distress - Head Exam Head Exam: ATRAUMATIC - Eye Exam Eye Exam: absent: Scleral icterus - ENT Exam ENT Exam: Mucous Membranes Moist - Neck Exam Neck exam: Negative for: Meningismus - Respiratory Exam Respiratory Exam: absent: Rhonchi, Wheezes, Respiratory Distress - Cardiovascular Exam Cardiovascular Exam: REGULAR RHYTHM, +S1, +S2 - GI/Abdominal Exam GI & Abdominal Exam: Soft. absent: Tenderness - Rectal Exam Rectal Exam: Deferred - Extremities Exam Extremities exam: Positive for: pedal edema (marked edema on both legs, right > left) - Neurological Exam Neurological exam: Alert, Oriented x3 - Psychiatric Exam Psychiatric exam: Normal Affect - Skin Skin Exam: Dry, Intact Results - Vital Signs Recent Vital Signs: Last Vital Signs Temp 98.0 F 07/15/17 15:30 Pulse 59 L 07/15/17 18:10 Resp 16 07/15/17 18:00 BP 148/79 07/15/17 18:00 Pulse Ox 98 07/15/17 18:00 - Labs Result Diagrams: 07/15/17 16:27 07/15/17 16:27 Assessment & Plan (1) Cellulitis, leg Status: Acute Comment: admit to med/surg. blood and urine culture. continue Zosyn and Vanco (2) UTI (lower urinary tract infection) Status: Acute Comment: follow up urine culture. continue Zosyn (3) DM2 (diabetes mellitus, type 2) Status: Chronic Comment: accuhek ACHS. HgA1C, BMP in am. Metformin 500mg PO q 12hrs (4) History of CVA (cerebrovascular accident) Status: Chronic Comment: refer to PT for evaluation and management. pain management with Gabapentin (5) DVT prophylaxis Status: Acute Comment: Lovenox 40mg SC daily
[2017-07-15] MEDS ORDERED: Piperacillin/Tazobact 3.375 GM in Sodium Chloride 0.9% 100 ML IVPB SCH (22:00)
[2017-07-15] MEDS: oxyCODONE 20 mg ER Tab (oxyCONTIN) PO SCH (22:12)
[2017-07-15] MEDS: HYDROmorphone 0.5 mg/0.5 ml ISec IVP PRN (23:17)
[2017-07-16] MEDS: Piperacillin/Tazobact 3.375 GM in Sodium Chloride 0.9% 100 ML IVPB SCH ×4 (00:27→18:00)
[2017-07-16] MEDS: HYDROmorphone 0.5 mg/0.5 ml ISec IVP PRN ×4 (04:47→22:27)
[2017-07-16] MEDS: oxyCODONE 20 mg ER Tab (oxyCONTIN) PO SCH ×3 (06:04→22:13)
[2017-07-16] MEDS: Insulin Regular 100 units/ml SC SCH ×4 (06:27→22:32)
--- NOTE | 2017-07-16 07:25 | RAD ---
HISTORY: bilateral leg edema COMPARISON: Chest radiograph 05/09/2017. FINDINGS: LUNGS: History volume appears somewhat diminished however there is no acute infiltrate or pulmonary vascular derangement identified. PLEURA: No significant pleural effusion identified, no pneumothorax apparent. CARDIOVASCULAR: Normal. OSSEOUS STRUCTURES: No significant abnormalities. VISUALIZED UPPER ABDOMEN: Normal. OTHER FINDINGS: Cervical spinal fusion hardware again evident. IMPRESSION: No acute infiltrate or definite interval change 04/30/2017.
[2017-07-16] MEDS: Lactobacillus Acidophilus 500 MU Cap PO SCH ×2 (08:12→16:35)
[2017-07-16] MEDS: Multivitamin With Minerals Tab PO SCH (08:12)
[2017-07-16] MEDS: Enoxaparin 40 mg Syringe SC SCH (08:12)
[2017-07-16 09:41] LABS: BASO % 0.6 % (0.0-2.0); EOS # 0.2 K/uL (0.0-0.7); HEMATOCRIT 34.7 % (35.0-51.0); LYMPH % 44.4 % (20.0-40.0); MEAN CELL VOLUME 91.9 fl (80.0-94.0); MEAN CORPUSCULAR HEMOGLOBIN 30.2 pg (27.0-31.0); MEAN CORPUSCULAR HGB CONC 32.8 g/dL (33.0-37.0); MONO # 0.7 K/uL (0.0-0.8); MONO % 9.6 % (0.0-10.0); NEUT # 2.9 K/uL (1.8-7.0); NEUT % 42.4 % (50.0-75.0); NRBC % 0.1 % (0.0-0.0); RED CELL DISTRIBUTION WIDTH 14.4 % (11.5-14.5); WHITE BLOOD COUNT 6.8 K/uL (4.8-10.8)
[2017-07-16 09:44] LABS: BLOOD UREA NITROGEN 10 mg/dl (9-20); CALCIUM 8.7 mg/dL (8.4-10.2); CARBON DIOXIDE 25 mmol/L (22-30); CHLORIDE 104 mmol/L (98-107); GFR AFRICAN-AMERICAN > 60; GLUCOSE,RANDOM 195 mg/dL (75-110); POTASSIUM 3.8 MMOL/L (3.6-5.0); SODIUM 136 mmol/l (132-148)
--- NOTE | 2017-07-16 11:15 | CP.PCM.PN ---
Subjective - Date & Time of Evaluation Date of Evaluation: 07/16/17 Time of Evaluation: 10:45 - Subjective Subjective: No fever this am feels better leg pain/tenderness and erythema better denies CP no SOB no abd pain Pt states he is on Pain mgt regimen at home and is on Oxycodone TID an Percocet 10 q 4 Objective - Vital Signs/Intake and Output Vital Signs (last 24 hours): Temp Pulse Resp BP Pulse Ox 97.1 F L 84 20 93/56 L 95 07/16/17 08:10 07/16/17 08:10 07/16/17 08:10 07/16/17 08:10 07/16/17 08:10 Intake and Output: 07/16/17 07/16/17 06:59 18:59 Output Total 450 Balance -450 - Medications Medications: Current Medications Aspirin (Aspirin Chewable) 81 mg PO DAILY [facility] Last Admin: 07/16/17 08:12 Dose: 81 mg Atorvastatin Calcium (Lipitor) 20 mg PO HS [facility] Last Admin: 07/15/17 22:14 Dose: 20 mg Carvedilol (Coreg) 3.125 mg PO Q12@1000,2200 [facility] Clonazepam (Klonopin) 1 mg PO QAM [facility] Last Admin: 07/16/17 08:16 Dose: 1 mg Clonazepam (Klonopin) 2 mg PO HS [facility] Last Admin: 07/15/17 22:13 Dose: 2 mg Enoxaparin Sodium (Lovenox) 40 mg SC DAILY [facility] PRN Reason: Protocol Last Admin: 07/16/17 08:12 Dose: 40 mg Ergocalciferol (Drisdol 50,000 Intl Units Cap) 1 cap PO QWK [facility] Gabapentin (Neurontin) 300 mg PO BID [facility] Last Admin: 07/16/17 08:13 Dose: 300 mg Home Med (Naloxegol Oxalate [Movantik]) 25 mg PO DAILY [facility] Hydromorphone HCl (Dilaudid) 0.5 mg IVP Q4H PRN PRN Reason: Pain, severe (8-10) Last Admin: 07/16/17 08:16 Dose: 0.5 mg Vancomycin HCl 1 gm/ Sodium (Chloride) 250 mls @ 166.667 mls/hr IVPB Q12H [facility] Last Admin: 07/16/17 08:11 Dose: 166.667 mls/hr Piperacillin Sod/Tazobactam (Sod 3.375 gm/ Sodium Chloride) 100 mls @ 100 mls/ hr IVPB Q6H [facility] Last Admin: 07/16/17 06:06 Dose: 100 mls/hr Insulin Human Regular (Humulin R) 0 units SC ACCU-CHECK [facility] PRN Reason: Protocol Last Admin: 07/16/17 06:27 Dose: 3 units Lactobacillus Acidophilus (Bacid Acidophilus) 1 cap PO BID [facility] Last Admin: 07/16/17 08:12 Dose: 1 cap Metformin HCl (Glucophage) 500 mg PO BIDWM [facility] Multivitamins/Minerals (Therapeutic-M Tab) 1 tab PO DAILY [facility] Last Admin: 07/16/17 08:12 Dose: 1 tab Oxycodone HCl (Oxycontin Extended Release Tab) 60 mg PO Q8H [facility] Last Admin: 07/16/17 06:04 Dose: 60 mg Polyethylene Glycol (Miralax) 17 gm PO DAILY PRN PRN Reason: Constipation Torsemide (Demadex) 10 mg PO DAILY PRN PRN Reason: leg swelling - Labs Labs: 07/16/17 09:15 07/16/17 09:15 PT 11.3 Seconds (9.8-13.1) 07/15/17 16:27 INR 1.1 (0.9-1.2) 07/15/17 16:27 APTT 19.2 Seconds (25.6-37.1) L 07/15/17 16:27 - Constitutional Appears: No Acute Distress, Chronically Ill - Head Exam Head Exam: NORMAL INSPECTION, NORMOCEPHALIC - Eye Exam Eye Exam: EOMI Pupil Exam: NORMAL ACCOMODATION - ENT Exam ENT Exam: Mucous Membranes Moist, Normal External Ear Exam - Neck Exam Neck Exam: Full ROM. absent: Meningismus - Respiratory Exam Respiratory Exam: NORMAL BREATHING PATTERN. absent: Respiratory Distress - Cardiovascular Exam Cardiovascular Exam: REGULAR RHYTHM, +S1, +S2 - GI/Abdominal Exam GI & Abdominal Exam: Soft, Normal Bowel Sounds. absent: Tenderness - Extremities Exam Extremities Exam: Normal Capillary Refill, Pedal Edema. absent: Calf Tenderness Additional comments: RLE erythema, tenderness - Neurological Exam Neurological Exam: Alert, Awake, Oriented x3 - Psychiatric Exam Psychiatric exam: Normal Affect, Normal Mood - Skin Skin Exam: Dry, Normal Color, Warm Assessment and Plan - Assessment and Plan (Free Text) Assessment: 62 yo male with history of DM2, HTN and 3 previous CVAs causing him to be bed- bound with chronic indwelling marina catheter , was brought in bec of bilat leg swelling , erythema , tenderness and fever. (1) RLE Cellulitis Status: Acute blood and urine culture continue IV Zosyn and Vanco ID consult (2) UTI (lower urinary tract infection), with indwelling Marina catheter Status: Acute follow up urine culture. continue Zosyn (3) DM2 (diabetes mellitus, type 2) Status: Chronic accuchek ACHS. HgA1C start Metformin 500mg PO q 12hrs (4) History of CVA (cerebrovascular accident) Status: Chronic cont ASA , statin pain management with Gabapentin 5. HTN cont Coreg , Demadex DVT prophylaxis Status: Acute Lovenox
--- NOTE | 2017-07-16 11:53 | CP.PCM.CON ---
History of Present Illness - History of Present Illness History of Present Illness: 62yo male, with PMHx of CVA and resultant right sided hemiparesis, hypertnesion , hypercholesterolemia, peripheral edema, presents to the ED for evaluation of bilateral leg swelling, which has been ongoing for the past two weeks. Pt reports he has been taking lasix with no relief. He additionally states, the swelling has been occurring on and off for the past few months but this instance was the worst. Pt also reports mild shortness of breath, diffuse bodyaches - more present on his right side due to history of hemiparesis. He denies any cough and states he is currently on pain medications at home. Pt's home health aide is at bedside and reports pt's right leg seems more edematous than the left. Pt offers no additional medical complaints. iv ANTIBIOTICS STArted empirically for severe cellulitis RLE - Medical History PMH: Anemia, Anxiety, CVA (with left lower and right upper and lower paralysis) , Depression, Gastritis, HTN, Hypercholesterolemia, Peripheral Edema, Pneumonia Denies: HIV, Chronic Kidney Disease - Surgical History Surgical History: No Surg Hx - Family History Family History: States: Unknown Family Hx Review of Systems - Constitutional Constitutional: As Per HPI - EENT Eyes: As Per HPI. absent: Blind Spots, Blurred Vision, Change in Vision, Decreased Night Vision, Diplopia, Discharge, Dry Eye, Exophthalmos, Floaters, Irritation, Itchy Eyes, Loss of Peripheral Vision, Pain, Photophobia, Requires Corrective Lenses, Sees Flashes, Spots in Vision, Tunnel Vision, Other Visual Disturbances, Loss of Vision, Other Ears: absent: As Per HPI, Decreased Hearing, Ear Discharge, Ear Pain, Tinnitus, Abnormal Hearing, Disequilibrium, Dizziness, Other Nose/Mouth/Throat: absent: As Per HPI, Epistaxis, Nasal Congestion, Nasal Discharge, Nasal Obstruction, Nasal Trauma, Nose Pain, Post Nasal Drip, Sinus Pain, Sinus Pressure, Bleeding Gums, Change in Voice, Dental Pain, Dry Mouth, Dysphagia, Halitosis, Hoarsness, Lip Swelling, Mouth Lesions, Mouth Pain, Odynophagia, Sore Throat, Throat Swelling, Tongue Swelling, Facial Pain, Neck Pain, Neck Mass, Other - Cardiovascular Cardiovascular: As Per HPI - Respiratory Respiratory: absent: As Per HPI, Cough, Dyspnea, Hemoptysis, Dyspnea on Exertion , Wheezing, Snoring, Stridor, Pain on Inspiration, Chest Congestion, Excessive Mucous Production, Change in Mucous Color, Pain with Coughing, Other - Gastrointestinal Gastrointestinal: absent: As Per HPI, Abdominal Pain, Belching, Bloating, Change in Bowel Habits, Change in Stool Character, Coffee Ground Emesis, Constipation, Cramping, Diarrhea, Dyspepsia, Dysphagia, Early Satiety, Excessive Flatus, Fecal Incontinence, Heartburn, Hematemesis, Hematochezia, Loose Stools, Melena, Nausea, Odynophagia, Temesmus, Vomiting, Other - Genitourinary Genitourinary: absent: As Per HPI, Change in Urinary Stream, Difficulty Urinating, Dysuria, Flank Pain, Hematuria, Pyuria, Nocturia, Urinary Incontinence, Urinary Frequency, Urinary Hesitance, Urinary Urgency, Voiding Freq/Small Amts, Freq UTI, Hx Renal/Bladder Calculi, Hx /Renal Surgery, Bladder Distension, Other - Musculoskeletal Musculoskeletal: As Per HPI - Integumentary Integumentary: As Per HPI, Skin Pain, Wounds - Neurological Neurological: absent: As Per HPI, Abnormal Gait, Abnormal Hearing, Abnormal Movements, Abnormal Speech, Behavioral Changes, Burning Sensations, Confusion, Convulsions, Disequilibrium, Dizziness, Numbness, Focal Weakness, Frequent Falls , Headaches, Lack of Coordination, Loss of Vision, Memory Loss, Paresthesias, Radicular Pain, Restless Legs, Sensory Deficit, Syncope, Tingling, Tremor, Vertigo, Weakness, Other Visual Disturbances, Other - Psychiatric Psychiatric: absent: As Per HPI, Abnormal Sleep Pattern, Anhedonia, Anxiety, Auditory Hallucinations, Behavioral Changes, Change in Appetite, Change in Libido, Confusion, Depression, Difficulty Concentrating, Hallucinations, Homicidal Ideation, Hopelessness, Irritability, Memory Loss, Mood Swings, Panic Attacks, Paranoia, Suicidal Ideation, Visual Hallucinations, Tactile Hallucinations, Other - Endocrine Endocrine: absent: As Per HPI, Change in Body Appearance, Change in Libido, Cold Intolorance, Deepening of Voice, Excessive Sweating, Fatigue, Flushing, Heat Intolorance, Increase in Ring/Shoe/Hat Size, Palpitations, Polydipsia, Polyphagia, Polyuria, Other - Hematologic/Lymphatic Hematologic: absent: As Per HPI, Easy Bleeding, Easy Bruising, Lymphadenopathy, Other Past Patient History - Tetanus Immunizations Tetanus Immunization: Unknown - Past Medical History & Family History Past Medical History?: Yes - Past Social History Smoking Status: Never Smoked - CARDIAC Hx Cardiac Disorders: Yes Hx Hypercholesterolemia: Yes Hx Hypertension: Yes Hx Peripheral Edema: Yes - PULMONARY Hx Respiratory Disorders: Yes Hx Pneumonia: Yes - NEUROLOGICAL Hx Neurological Disorder: Yes HX Cerebrovascular Accident: Yes (9yrs ago) - HEENT Hx HEENT Problems: Yes Other/Comment: eyeglasses - RENAL Hx Chronic Kidney Disease: No - ENDOCRINE/METABOLIC Hx Endocrine Disorders: Yes Hx Diabetes Mellitus Type 2: Yes - HEMATOLOGICAL/ONCOLOGICAL Hx Blood Disorders: Yes Hx AIDS: No Hx Anemia: Yes Hx Human Immunodeficiency Virus (HIV): No - INTEGUMENTARY Hx Dermatological Problems: No - MUSCULOSKELETAL/RHEUMATOLOGICAL Hx Musculoskeletal Disorders: No Hx Falls: No - GASTROINTESTINAL Hx Gastrointestinal Disorders: Yes Hx Gastritis: Yes - GENITOURINARY/GYNECOLOGICAL Hx Genitourinary Disorders: Yes Hx Incontinence: Yes Hx Prostate Problems: Yes Hx Urinary Tract Infection: Yes (urinary retention) - PSYCHIATRIC Hx Psychophysiologic Disorder: Yes Hx Anxiety: Yes Hx Depression: Yes Hx Substance Use: No - SURGICAL HISTORY Hx Surgeries: Yes Other/Comment: Neck Sx, Right hand Sx, Right leg Sx, cystoscopy , R ankle surgery - ANESTHESIA Hx Anesthesia: Yes Hx Anesthesia Reactions: No Hx Malignant Hyperthermia: No Meds Allergies/Adverse Reactions: Allergies Allergy/AdvReac Type Severity Reaction Status Date / Time No Known Allergies Allergy Verified 05/09/17 17:30 - Medications Medications: Current Medications Aspirin (Aspirin Chewable) 81 mg PO DAILY [facility] Last Admin: 07/16/17 08:12 Dose: 81 mg Atorvastatin Calcium (Lipitor) 20 mg PO HS [facility] Last Admin: 07/15/17 22:14 Dose: 20 mg Carvedilol (Coreg) 3.125 mg PO Q12@1000,2200 [facility] Last Admin: 07/16/17 11:20 Dose: Not Given Clonazepam (Klonopin) 1 mg PO QAM [facility] Last Admin: 07/16/17 08:16 Dose: 1 mg Clonazepam (Klonopin) 2 mg PO HS [facility] Last Admin: 07/15/17 22:13 Dose: 2 mg Enoxaparin Sodium (Lovenox) 40 mg SC DAILY [facility] PRN Reason: Protocol Last Admin: 07/16/17 08:12 Dose: 40 mg Ergocalciferol (Drisdol 50,000 Intl Units Cap) 1 cap PO QWK [facility] Gabapentin (Neurontin) 300 mg PO BID [facility] Last Admin: 07/16/17 08:13 Dose: 300 mg Home Med (Naloxegol Oxalate [Movantik]) 25 mg PO DAILY [facility] Vancomycin HCl 1 gm/ Sodium (Chloride) 250 mls @ 166.667 mls/hr IVPB Q12H [facility] Last Admin: 07/16/17 08:11 Dose: 166.667 mls/hr Piperacillin Sod/Tazobactam (Sod 3.375 gm/ Sodium Chloride) 100 mls @ 100 mls/ hr IVPB Q6H [facility] Last Admin: 07/16/17 06:06 Dose: 100 mls/hr Insulin Human Regular (Humulin R) 0 units SC ACCU-CHECK [facility] PRN Reason: Protocol Last Admin: 07/16/17 06:27 Dose: 3 units Lactobacillus Acidophilus (Bacid Acidophilus) 1 cap PO BID [facility] Last Admin: 07/16/17 08:12 Dose: 1 cap Metformin HCl (Glucophage) 500 mg PO BIDWM [facility] Multivitamins/Minerals (Therapeutic-M Tab) 1 tab PO DAILY [facility] Last Admin: 07/16/17 08:12 Dose: 1 tab Oxycodone HCl (Oxycontin Extended Release Tab) 60 mg PO Q8H [facility] Last Admin: 07/16/17 06:04 Dose: 60 mg Oxycodone/Acetaminophen (Percocet 5/325 Mg Tab) 2 tab PO Q4 PRN PRN Reason: Pain, severe (8-10) Stop: 07/19/17 11:17 Polyethylene Glycol (Miralax) 17 gm PO DAILY PRN PRN Reason: Constipation Torsemide (Demadex) 10 mg PO DAILY PRN PRN Reason: leg swelling Physical Exam - Constitutional Appears: Non-toxic, Chronically Ill - Head Exam Head Exam: NORMOCEPHALIC - Eye Exam Eye Exam: PERRL. absent: Scleral icterus - ENT Exam ENT Exam: Mucous Membranes Dry, Normal External Ear Exam - Neck Exam Neck exam: Negative for: Lymphadenopathy, Thyromegaly - Respiratory Exam Respiratory Exam: Decreased Breath Sounds, Rhonchi - Cardiovascular Exam Cardiovascular Exam: REGULAR RHYTHM - GI/Abdominal Exam GI & Abdominal Exam: Diminished Bowel Sounds, Soft. absent: Tenderness - Rectal Exam Rectal Exam: Deferred - Exam Exam: NORMAL INSPECTION - Extremities Exam Extremities exam: Positive for: calf tenderness, pedal edema, tenderness, pedal pulses present Additional comments: swelling 3+ RLE - Back Exam Back exam: absent: CVA tenderness (L), CVA tenderness (R) - Neurological Exam Neurological exam: Alert, CN II-XII Intact, Oriented x3, Reflexes Normal - Psychiatric Exam Psychiatric exam: Depressed - Skin Skin Exam: Dry, Intact Results - Vital Signs Recent Vital Signs: Last Vital Signs Temp 97.1 F L 07/16/17 08:10 Pulse 84 07/16/17 08:10 Resp 20 07/16/17 08:10 BP 96/53 L 07/16/17 11:20 Pulse Ox 95 07/16/17 08:10 - Labs Result Diagrams: 07/16/17 09:15 07/16/17 09:15 Labs: Laboratory Results - last 24 hr 07/15/17 07/16/17 07/16/17 22:12 06:12 09:00 WBC RBC Hgb Hct MCV MCH MCHC RDW Plt Count MPV Neut % (Auto) Lymph % (Auto) [place] % (Auto) Eos % (Auto) Baso % (Auto) Neut # Lymph # [place] # Eos # Baso # Sodium Potassium Chloride Carbon Dioxide Anion Gap BUN Creatinine Est GFR ( Amer) Est GFR (Non-Af Amer) POC Glucose (mg/dL) 266 H 245 H Random Glucose Calcium Troponin I < 0.0120 07/16/17 07/16/17 07/16/17 09:15 09:15 11:06 WBC 6.8 RBC 3.77 L Hgb 11.4 L D Hct 34.7 L MCV 91.9 MCH 30.2 MCHC 32.8 L RDW 14.4 Plt Count 260 MPV 7.0 L Neut % (Auto) 42.4 L Lymph % (Auto) 44.4 H [place] % (Auto) 9.6 Eos % (Auto) 3.0 Baso % (Auto) 0.6 Neut # 2.9 Lymph # 3.0 [place] # 0.7 Eos # 0.2 Baso # 0.0 Sodium 136 Potassium 3.8 Chloride 104 Carbon Dioxide 25 Anion Gap 10 BUN 10 Creatinine 0.8 Est GFR ( Amer) > 60 Est GFR (Non-Af Amer) > 60 POC Glucose (mg/dL) 214 H Random Glucose 195 H Calcium 8.7 Troponin I Assessment & Plan (1) Cellulitis, leg Status: Acute (2) Leg edema Status: Acute (3) UTI (lower urinary tract infection) Status: Acute (4) History of CVA (cerebrovascular accident) Status: Chronic - Assessment and Plan (Free Text) Assessment: await cultures of urine- consider eval vascular eval IV antibiotics
[2017-07-16] MEDS: Oxycodone/Acetaminophen 5/325 mg Tab PO PRN ×2 (12:10→15:48)
[2017-07-16] MEDS ORDERED: Lidocaine 1% Inj (20ml) ONE (12:47)
--- NOTE | 2017-07-16 13:28 | PCM.SURG1 ---
Surgeon's Initial Post Op Note - Surgeon's Notes Surgeon: Travis Liu MD Group Therapy Counselor: NONE Type of Anesthesia: Local Pre-Operative Diagnosis: Poor venous access Operative Findings: Patent left basilic vein. Post-Operative Diagnosis: Poor venous access Operation Performed: Single lumen picc placement left basilic vein, 39 cm. Tip in SVC. Specimen/Specimens Removed: NONE Estimated Blood Loss: EBL {In ML}: 2 Blood Products Given: N/A Drains Used: No Drains Post-Op Condition: Fair Date of Surgery/Procedure: 07/16/17 Time of Surgery/Procedure: 13:25
[2017-07-16] MEDS ORDERED: oxyCODONE 20 mg ER Tab (oxyCONTIN) PO SCH (15:41)
[2017-07-16 16:37] VITALS: RESP 20
[2017-07-16] MEDS ORDERED: Oxycodone/Acetaminophen 5/325 mg Tab PO PRN (17:30)
[2017-07-17] MEDS: Piperacillin/Tazobact 3.375 GM in Sodium Chloride 0.9% 100 ML IVPB SCH ×3 (00:21→12:30)
[2017-07-17] MEDS: HYDROmorphone 0.5 mg/0.5 ml ISec IVP PRN ×3 (02:26→10:12)
[2017-07-17] MEDS: oxyCODONE 20 mg ER Tab (oxyCONTIN) PO SCH ×3 (05:46→21:47)
[2017-07-17] MEDS: Insulin Regular 100 units/ml SC SCH ×4 (06:48→22:19)
[2017-07-17] MEDS ORDERED: HYDROmorphone 0.5 mg/0.5 ml ISec IVP STA (08:38)
[2017-07-17] MEDS: Lactobacillus Acidophilus 500 MU Cap PO SCH ×2 (08:54→17:01)
[2017-07-17] MEDS: Enoxaparin 40 mg Syringe SC SCH (08:56)
[2017-07-17] MEDS: Multivitamin With Minerals Tab PO SCH (08:57)
--- NOTE | 2017-07-17 09:22 | CP.PCM.PN ---
Subjective - Date & Time of Evaluation Date of Evaluation: 07/17/17 Time of Evaluation: 08:30 - Subjective Subjective: Complains of generalized pain , stating that 0.5 mg Dilaudid for breakthrough pain is not enough No fever Denies CP no SOB + constipation - no BM x 4 days PICC line placed yesterday - unable to insert Periph line despite multiple attempts at bedside , discussed test results and treatment plan , answered all questions Objective - Vital Signs/Intake and Output Vital Signs (last 24 hours): Temp Pulse Resp BP Pulse Ox 97.7 F 56 L 20 108/68 93 L 07/17/17 08:21 07/17/17 08:21 07/17/17 08:21 07/17/17 08:21 07/17/17 08:21 Intake and Output: 07/17/17 07/17/17 06:59 18:59 Intake Total 450 Output Total 600 Balance -150 - Medications Medications: Current Medications Aspirin (Aspirin Chewable) 81 mg PO DAILY [facility] Last Admin: 07/17/17 08:55 Dose: 81 mg Atorvastatin Calcium (Lipitor) 20 mg PO [facility] Last Admin: 07/16/17 21:51 Dose: 20 mg Carvedilol (Coreg) 3.125 mg PO Q12@1000,2200 [facility] Last Admin: 07/16/17 21:56 Dose: Not Given Clonazepam (Klonopin) 1 mg PO QAM [facility] Last Admin: 07/17/17 08:52 Dose: 1 mg Clonazepam (Klonopin) 2 mg PO HS [facility] Last Admin: 07/16/17 21:50 Dose: 2 mg Docusate Sodium (Colace) 100 mg PO BID [facility] Last Admin: 07/17/17 08:55 Dose: 100 mg Enoxaparin Sodium (Lovenox) 40 mg SC DAILY [facility] PRN Reason: Protocol Last Admin: 07/17/17 08:56 Dose: 40 mg Ergocalciferol (Drisdol 50,000 Intl Units Cap) 1 cap PO QWK [facility] Gabapentin (Neurontin) 300 mg PO BID [facility] Last Admin: 07/17/17 08:57 Dose: 300 mg Home Med (Naloxegol Oxalate [Movantik]) 25 mg PO DAILY [facility] Hydromorphone HCl (Dilaudid) 0.5 mg IVP Q4 PRN PRN Reason: Pain, severe (8-10) Last Admin: 07/17/17 06:33 Dose: 0.5 mg Vancomycin HCl 1 gm/ Sodium (Chloride) 250 mls @ 166.667 mls/hr IVPB Q12H [facility] Last Admin: 07/17/17 08:57 Dose: 166.667 mls/hr Piperacillin Sod/Tazobactam (Sod 3.375 gm/ Sodium Chloride) 100 mls @ 100 mls/ hr IVPB Q6H [facility] Last Admin: 07/17/17 05:48 Dose: 100 mls/hr Insulin Human Regular (Humulin R) 0 units SC ACCU-CHECK [facility] PRN Reason: Protocol Last Admin: 07/17/17 06:48 Dose: Not Given Lactobacillus Acidophilus (Bacid Acidophilus) 1 cap PO BID [facility] Last Admin: 07/17/17 08:54 Dose: 1 cap Metformin HCl (Glucophage) 500 mg PO BIDWM [facility] Last Admin: 07/17/17 08:56 Dose: 500 mg Multivitamins/Minerals (Therapeutic-M Tab) 1 tab PO DAILY [facility] Last Admin: 07/17/17 08:57 Dose: 1 tab Oxycodone HCl (Oxycontin Extended Release Tab) 80 mg PO Q8@0545,1345,2145 [facility] Last Admin: 07/17/17 05:46 Dose: 80 mg Oxycodone/Acetaminophen (Percocet 5/325 Mg Tab) 2 tab PO Q4 PRN PRN Reason: Pain, moderate (4-7) Stop: 07/19/17 11:17 Polyethylene Glycol (Miralax) 17 gm PO DAILY PRN PRN Reason: Constipation Last Admin: 07/17/17 08:58 Dose: 17 gm Torsemide (Demadex) 10 mg PO DAILY PRN PRN Reason: leg swelling - Labs Labs: 07/16/17 09:15 07/16/17 09:15 PT 11.3 Seconds (9.8-13.1) 07/15/17 16:27 INR 1.1 (0.9-1.2) 07/15/17 16:27 APTT 19.2 Seconds (25.6-37.1) L 07/15/17 16:27 - Constitutional Appears: No Acute Distress, Chronically Ill - Head Exam Head Exam: NORMAL INSPECTION, NORMOCEPHALIC - Eye Exam Eye Exam: EOMI Pupil Exam: NORMAL ACCOMODATION - ENT Exam ENT Exam: Mucous Membranes Moist, Normal External Ear Exam - Neck Exam Neck Exam: Full ROM. absent: Meningismus - Respiratory Exam Respiratory Exam: NORMAL BREATHING PATTERN. absent: Respiratory Distress - Cardiovascular Exam Cardiovascular Exam: REGULAR RHYTHM, +S1, +S2 - GI/Abdominal Exam GI & Abdominal Exam: Soft, Normal Bowel Sounds. absent: Tenderness - Extremities Exam Extremities Exam: Normal Capillary Refill, Pedal Edema. absent: Calf Tenderness Additional comments: RLE erythema, tenderness - Neurological Exam Neurological Exam: Alert, Awake, Oriented x3 - Psychiatric Exam Psychiatric exam: Normal Affect, Normal Mood - Skin Skin Exam: Dry, Normal Color, Warm Assessment and Plan - Assessment and Plan (Free Text) Assessment: 62 yo male with history of DM2, HTN and 3 previous CVAs causing him to be bed- bound , H xof Urinary retention on chronic indwelling marina catheter , was brought in bec of bilat leg swelling , erythema , tenderness and fever. (1) RLE Cellulitis Status: Acute continue IV Zosyn and Vanco ID consult (2) UTI (lower urinary tract infection), associated with chronic indwelling Marina catheter ( POA) Status: Acute Marina in place since last CVA - changed by dr Berger's Visiting providers every month - urine culture: yeast - will discuss with dr potts need to tx vs contaminant Blood c/s: Gram + cocci 1 out of 2 botlles prob contamination continue Zosyn and Vanco (3) DM2 (diabetes mellitus, type 2) Status: Chronic accuchek ACHS. HgA1C Metformin 500mg PO q 12hrs (4) History of CVA (cerebrovascular accident) Status: Chronic cont ASA , statin pain management with Gabapentin 5. HTN cont Coreg , Demadex 6. Intractable Generalized Pain, chronic Pt on Oxycodone 80 mg tid , Gabapentin, Percocet 2 tabs q 4 prn and Dilaudid 0.5 mg q4 prn for pain Pain still uncontrolled -Pain Mgt consult - Dr Puri 7. Constipation likely sec to Opiates and Immobility Miralax daily Dulolax supp Fleet enema prn DVT prophylaxis Status: Acute Lovenox
--- NOTE | 2017-07-17 10:30 | VASCULAR ---
PROCEDURE: Date of procedure: Procedure: 1. Placement of a left arm PICC with ultrasound and fluoroscopic guidance, CPT 36234 2. PICC tip confirmation with spot radiograph and is in the superior vena cava Medications: 1 percent lidocaine Total Fluoro time: 8.8 seconds Radiation: 0.92 MGy EBL: 3 cc HISTORY: Infection requiring long-term IV antibiotics TECHNIQUE: Following informed consent and procedure time-out, the patient placed supine on the interventional table and the left arm prepped and draped in the usual sterile fashion. Ultrasound showed a patent and compressible left basilic vein. After the skin was anesthetized with lidocaine, the basilic vein was accessed with micro micropuncture technique using ultrasound guidance. A guidewire was then advanced under fluoroscopic guidance into the superior vena cava. An image documenting ultrasound guidance for vascular access was permanently saved. The length of a single-lumen 4 [place] PICC was trimmed to 39 cm and advanced through a peel-away sheath. The PICC was position with tip of PICC confirm a spot radiograph the superior vena cava. The PICC was secured to the patient's skin. The PICC was flushed. A biopatch and sterile dressing was applied. IMPRESSION: 39 cm. The tip of the PICC is confirmed with spot radiograph and is in the superior vena cava.
[2017-07-17] MEDS ORDERED: Chlorhexidine Gluconate 1 APPL/PKT TP ONE (11:45)
--- NOTE | 2017-07-17 12:58 | CP.PCM.CON ---
History of Present Illness - History of Present Illness History of Present Illness: 62 yo well known to service from previous admissions is admitted for bilateral cellulitis. Patient doesn't appear to have sepsis, although work-up is ongoing and patient is on IV abx. His vital signs have been stable on the floor. At home, patient sees Dr. Briceño for pain management and is on Oxycontin 80mg q8h, as well as Percocet 10/325mg and Neurontin 600mg q8h, for pain. He has a history of chronic pain, from previous CVA and other co-morbidities. Currently, he's on his home dosage of Oxycontin, Percocet, along with Dilaudid IV 0.5mg, but that's insufficient in controlling his pain. During his previous admissions, he had tolerated Dilaudid 1mg IV along with Oxycontin well without side effects. Past Patient History - Tetanus Immunizations Tetanus Immunization: Unknown - Past Medical History & Family History Past Medical History?: Yes - Past Social History Smoking Status: Never Smoked - CARDIAC Hx Cardiac Disorders: Yes Hx Hypercholesterolemia: Yes Hx Hypertension: Yes Hx Peripheral Edema: Yes - PULMONARY Hx Respiratory Disorders: Yes Hx Pneumonia: Yes - NEUROLOGICAL Hx Neurological Disorder: Yes HX Cerebrovascular Accident: Yes (9yrs ago) - HEENT Hx HEENT Problems: Yes Other/Comment: eyeglasses - RENAL Hx Chronic Kidney Disease: No - ENDOCRINE/METABOLIC Hx Endocrine Disorders: Yes Hx Diabetes Mellitus Type 2: Yes - HEMATOLOGICAL/ONCOLOGICAL Hx Blood Disorders: Yes Hx AIDS: No Hx Anemia: Yes Hx Human Immunodeficiency Virus (HIV): No - INTEGUMENTARY Hx Dermatological Problems: No - MUSCULOSKELETAL/RHEUMATOLOGICAL Hx Musculoskeletal Disorders: No Hx Falls: No - GASTROINTESTINAL Hx Gastrointestinal Disorders: Yes Hx Gastritis: Yes - GENITOURINARY/GYNECOLOGICAL Hx Genitourinary Disorders: Yes Hx Incontinence: Yes Hx Prostate Problems: Yes Hx Urinary Tract Infection: Yes (urinary retention) - PSYCHIATRIC Hx Psychophysiologic Disorder: Yes Hx Anxiety: Yes Hx Depression: Yes Hx Substance Use: No - SURGICAL HISTORY Hx Surgeries: Yes Other/Comment: Neck Sx, Right hand Sx, Right leg Sx, cystoscopy , R ankle surgery - ANESTHESIA Hx Anesthesia: Yes Hx Anesthesia Reactions: No Hx Malignant Hyperthermia: No Meds Allergies/Adverse Reactions: Allergies Allergy/AdvReac Type Severity Reaction Status Date / Time No Known Allergies Allergy Verified 06/29/17 17:30 - Medications Medications: Current Medications Aspirin (Aspirin Chewable) 81 mg PO DAILY [facility] Last Admin: 07/17/17 08:55 Dose: 81 mg Atorvastatin Calcium (Lipitor) 20 mg PO HS [facility] Last Admin: 07/16/17 21:51 Dose: 20 mg Carvedilol (Coreg) 3.125 mg PO Q12@1000,2200 [facility] Last Admin: 07/17/17 11:42 Dose: Not Given Clonazepam (Klonopin) 1 mg PO QAM [facility] Last Admin: 07/17/17 08:52 Dose: 1 mg Clonazepam (Klonopin) 2 mg PO HS [facility] Last Admin: 07/16/17 21:50 Dose: 2 mg Docusate Sodium (Colace) 100 mg PO BID [facility] Last Admin: 07/17/17 08:55 Dose: 100 mg Enoxaparin Sodium (Lovenox) 40 mg SC DAILY [facility] PRN Reason: Protocol Last Admin: 07/17/17 08:56 Dose: 40 mg Ergocalciferol (Drisdol 50,000 Intl Units Cap) 1 cap PO QWK [facility] Gabapentin (Neurontin) 300 mg PO BID [facility] Last Admin: 07/17/17 08:57 Dose: 300 mg Home Med (Naloxegol Oxalate [Movantik]) 25 mg PO DAILY [facility] Hydromorphone HCl (Dilaudid) 0.5 mg IVP Q4 PRN PRN Reason: Pain, severe (8-10) Last Admin: 07/17/17 10:12 Dose: 0.5 mg Vancomycin HCl 1 gm/ Sodium (Chloride) 250 mls @ 166.667 mls/hr IVPB Q12H [facility] Last Admin: 07/17/17 08:57 Dose: 166.667 mls/hr Piperacillin Sod/Tazobactam (Sod 3.375 gm/ Sodium Chloride) 100 mls @ 100 mls/ hr IVPB Q6H [facility] Last Admin: 07/17/17 12:30 Dose: 100 mls/hr Insulin Human Regular (Humulin R) 0 units SC ACCU-CHECK [facility] PRN Reason: Protocol Last Admin: 07/17/17 12:30 Dose: Not Given Lactobacillus Acidophilus (Bacid Acidophilus) 1 cap PO BID [facility] Last Admin: 07/17/17 08:54 Dose: 1 cap Metformin HCl (Glucophage) 500 mg PO BIDWM [facility] Last Admin: 07/17/17 08:56 Dose: 500 mg Multivitamins/Minerals (Therapeutic-M Tab) 1 tab PO DAILY [facility] Last Admin: 07/17/17 08:57 Dose: 1 tab Oxycodone HCl (Oxycontin Extended Release Tab) 80 mg PO Q8@0545,1345,2145 [facility] Last Admin: 07/17/17 05:46 Dose: 80 mg Oxycodone/Acetaminophen (Percocet 5/325 Mg Tab) 2 tab PO Q4 PRN PRN Reason: Pain, moderate (4-7) Stop: 07/19/17 11:17 Last Admin: 07/17/17 12:29 Dose: 2 tab Polyethylene Glycol (Miralax) 17 gm PO DAILY [facility] Torsemide (Demadex) 10 mg PO DAILY PRN PRN Reason: leg swelling Physical Exam - Respiratory Exam Respiratory Exam: NORMAL BREATHING PATTERN - Cardiovascular Exam Cardiovascular Exam: REGULAR RHYTHM - Extremities Exam Extremities exam: Positive for: pedal edema, tenderness Results - Vital Signs Recent Vital Signs: Last Vital Signs Temp 97.7 F 07/17/17 09:00 Pulse 57 L 07/17/17 11:42 Resp 20 07/17/17 08:21 BP 108/68 07/17/17 08:21 Pulse Ox 93 L 07/17/17 08:21 - Labs Result Diagrams: 07/16/17 09:15 07/16/17 09:15 Labs: Laboratory Results - last 24 hr 07/16/17 07/16/17 07/17/17 16:16 21:22 05:09 POC Glucose (mg/dL) 202 H 148 H 123 H Vancomycin Trough 07/17/17 07/17/17 06:50 10:43 POC Glucose (mg/dL) 102 Vancomycin Trough 12.7 H Assessment & Plan (1) Cellulitis, leg Assessment and Plan: 62 yo man w/ chronic pain, admitted for cellulits. - continue Oxycontin at home dosage - d/c Percocet, only use Dilaudid IV PRN for breakthrough, can increase to 1mg q3h PRN - can increase NEurontin to home dosage Status: Acute
--- NOTE | 2017-07-17 15:05 | CP.PCM.PN ---
Subjective - Date & Time of Evaluation Date of Evaluation: 07/17/17 Time of Evaluation: 09:00 - Subjective Subjective: c/o pain' RLE swelling persists no fever Objective - Vital Signs/Intake and Output Vital Signs (last 24 hours): Temp Pulse Resp BP Pulse Ox 97.7 F 57 L 20 108/68 93 L 07/17/17 09:00 07/17/17 11:42 07/17/17 08:21 07/17/17 08:21 07/17/17 08:21 Intake and Output: 07/17/17 07/17/17 06:59 18:59 Intake Total 450 Output Total 600 Balance -150 - Medications Medications: Current Medications Aspirin (Aspirin Chewable) 81 mg PO DAILY [facility] Last Admin: 07/17/17 08:55 Dose: 81 mg Atorvastatin Calcium (Lipitor) 20 mg PO HS [facility] Last Admin: 07/16/17 21:51 Dose: 20 mg Carvedilol (Coreg) 3.125 mg PO Q12@1000,2200 [facility] Last Admin: 07/17/17 11:42 Dose: Not Given Clonazepam (Klonopin) 1 mg PO QAM [facility] Last Admin: 07/17/17 08:52 Dose: 1 mg Clonazepam (Klonopin) 2 mg PO HS [facility] Last Admin: 07/16/17 21:50 Dose: 2 mg Docusate Sodium (Colace) 100 mg PO BID [facility] Last Admin: 07/17/17 08:55 Dose: 100 mg Enoxaparin Sodium (Lovenox) 40 mg SC DAILY [facility] PRN Reason: Protocol Last Admin: 07/17/17 08:56 Dose: 40 mg Ergocalciferol (Drisdol 50,000 Intl Units Cap) 1 cap PO QWK [facility] Gabapentin (Neurontin) 300 mg PO BID [facility] Last Admin: 07/17/17 08:57 Dose: 300 mg Home Med (Naloxegol Oxalate [Movantik]) 25 mg PO DAILY [facility] Hydromorphone HCl (Dilaudid) 1 mg IVP Q3H PRN PRN Reason: Pain, severe (8-10) Last Admin: 07/17/17 13:38 Dose: 1 mg Vancomycin HCl 1 gm/ Sodium (Chloride) 250 mls @ 166.667 mls/hr IVPB Q12H [facility] Last Admin: 07/17/17 08:57 Dose: 166.667 mls/hr Piperacillin Sod/Tazobactam (Sod 3.375 gm/ Sodium Chloride) 100 mls @ 100 mls/ hr IVPB Q6H [facility] Last Admin: 07/17/17 12:30 Dose: 100 mls/hr Insulin Human Regular (Humulin R) 0 units SC ACCU-CHECK [facility] PRN Reason: Protocol Last Admin: 07/17/17 12:30 Dose: Not Given Lactobacillus Acidophilus (Bacid Acidophilus) 1 cap PO BID [facility] Last Admin: 07/17/17 08:54 Dose: 1 cap Metformin HCl (Glucophage) 500 mg PO BIDWM [facility] Last Admin: 07/17/17 08:56 Dose: 500 mg Multivitamins/Minerals (Therapeutic-M Tab) 1 tab PO DAILY [facility] Last Admin: 07/17/17 08:57 Dose: 1 tab Oxycodone HCl (Oxycontin Extended Release Tab) 80 mg PO Q8@0545,1345,2145 [facility] Last Admin: 07/17/17 13:02 Dose: 80 mg Polyethylene Glycol (Miralax) 17 gm PO DAILY [facility] Torsemide (Demadex) 10 mg PO DAILY PRN PRN Reason: leg swelling - Labs Labs: 07/16/17 09:15 07/16/17 09:15 PT 11.3 Seconds (9.8-13.1) 07/15/17 16:27 INR 1.1 (0.9-1.2) 07/15/17 16:27 APTT 19.2 Seconds (25.6-37.1) L 07/15/17 16:27 - Constitutional Appears: Non-toxic, Chronically Ill - Head Exam Head Exam: NORMOCEPHALIC - Eye Exam Eye Exam: PERRL. absent: Scleral icterus - ENT Exam ENT Exam: Mucous Membranes Dry - Neck Exam Neck Exam: absent: Lymphadenopathy - Respiratory Exam Respiratory Exam: Decreased Breath Sounds - Cardiovascular Exam Cardiovascular Exam: REGULAR RHYTHM - GI/Abdominal Exam GI & Abdominal Exam: Distended, Soft - Rectal Exam Rectal Exam: Deferred - Exam Exam: NORMAL INSPECTION - Extremities Exam Extremities Exam: Pedal Edema, Tenderness - Back Exam Back Exam: absent: CVA tenderness (L), CVA tenderness (R) - Neurological Exam Neurological Exam: Alert, Awake, Oriented x3 Neuro motor strength exam: Left Upper Extremity: 4, Right Upper Extremity: 2/1, Left Lower Extremity: 4, Right Lower Extremity: 2/1 - Psychiatric Exam Psychiatric exam: Depressed - Skin Skin Exam: Dry Assessment and Plan (1) Cellulitis, leg Status: Acute (2) Leg edema Status: Acute (3) UTI (lower urinary tract infection) Status: Acute (4) History of CVA (cerebrovascular accident) Status: Chronic - Assessment and Plan (Free Text) Assessment: gram + cocci in blood likely a contaminant repeat cultures thus far negative edema of ARLE is likely chronic cont iv rx and pain management
[2017-07-17] MEDS ORDERED: Micafungin 100 MG in Sodium Chloride 0.9% 100 ML IV SCH (15:15)
--- NOTE | 2017-07-17 15:25 | PQF GENQUE ---
Dr. Stern, The attending physician is required to clarify conflicting documentation in the medical record. The following documentation is noted in the medical record: Diagnosis 1: POA: Cath Associated UTI Documented by: ER Location: ER record Diagnosis 2:UTI ----Present on Admission: Any Indicators Present on Admission: No Documented by: Hospitalist Group Location: H and P urine Cand S:-Final: Yeast Species IVAB's This form is a permanent part of the medical record Clarification of your documentation is requested to better reflect the severity of illness and intensity of treatment of your patient. Indicators present [] Specify: [] [] Specify: [] [] Specify: [] [] Specify: [] Location in the medical record that reflects the above clinical findings: [] Treatment Provided: [] PHYSICIAN'S RESPONSE Catheter associated UTI , in a pt on chronic indwelling Owens ( POA) Based on your medical judgment of the clinical indicators outlined above please clarify the following: [] Practitioner response [] If unable to determine, please check the box, sign and date. Present On Admission (POA) Indicator: [] Present at the time of admission [] Not present at the time of admission [] Clinically Undetermined In responding to this query, please exercise your independent professional judgment. The fact that a question is asked does not imply that any particular answer is desired or expected. Thank you for your clarification on this documentation. If you have any questions please call. * Thank you, Shyla Armando RN BSN ext. #[phone] MTDD
[2017-07-18] MEDS: oxyCODONE 20 mg ER Tab (oxyCONTIN) PO SCH ×2 (05:59→13:14)
[2017-07-18 07:33] VITALS: BP 109/71; PULSE 60; TEMP 97.5; O2SAT 99
[2017-07-18] MEDS: Insulin Regular 100 units/ml SC SCH ×2 (07:36→11:30)
--- NOTE | 2017-07-18 08:29 | CON ---
DATE: HISTORY OF PRESENT ILLNESS: This is a 62-year-old male who suffered a CVA approximately 2 years ago. The patient has been treated initially at [facility] with urinary retention versus recurrent urinary tract infections. The Owens that was in place was removed, and the suprapubic was inserted. The patient was then transferred to a assisted, had the procedure done. The patient was now admitted to [facility] for urinary tract infection. The patient prior to being admitted to [place] was hospital, and treated by a urologist at that hospital. Suprapubic tube was removed and a Owens was inserted while in [place] and at this point, transferred back into [facility]. Owens is draining well. Urine shows yeast infection; however, there is no fever. At this point, there is no further urological procedure that should be done. Osei Spaulding MD
[2017-07-18] MEDS: Lactobacillus Acidophilus 500 MU Cap PO SCH (08:52)
[2017-07-18] MEDS: Multivitamin With Minerals Tab PO SCH (08:53)
[2017-07-18] MEDS: Enoxaparin 40 mg Syringe SC SCH (08:53)
[2017-07-18] MEDS ORDERED: POLYETHYLENE GLYCOL 3350 17 GM/Dose PACKET PO SCH (09:00)
[2017-07-18] MEDS ORDERED: Micafungin 100 MG in Sodium Chloride 0.9% 100 ML IV SCH (09:00)
--- NOTE | 2017-07-18 16:04 | CP.PCM.DIS ---
Provider - Provider Date of Admission: 07/15/17 17:42 Attending physician: Christiano Hilliard MD Consults: Dr. Cloud- ID Dr. Puri- pain management Time Spent in preparation of Discharge (in minutes): 30 Diagnosis - Discharge Diagnosis (1) Cellulitis of right lower extremity Status: Acute Priority: High (2) Yeast UTI Status: Acute Priority: High (3) HTN (hypertension) Status: Chronic Priority: Medium (4) DM2 (diabetes mellitus, type 2) Status: Chronic Priority: Medium (5) History of CVA (cerebrovascular accident) Status: Chronic Priority: Medium Hospital Course - Lab Results Lab Results: Micro Results 07/17/17 06:50 Blood Blood Culture - Preliminary NO GROWTH AFTER 24 HOURS 07/16/17 05:00 Naris MRSA Culture (Admit) - Final MRSA NOT DETECTED Most Recent Lab Values WBC 6.8 K/uL (4.8-10.8) 07/16/17 09:15 RBC 3.77 Mil/uL (4.40-5.90) L 07/16/17 09:15 Hgb 11.4 g/dL (12.0-18.0) L D 07/16/17 09:15 Hct 34.7 % (35.0-51.0) L 07/16/17 09:15 MCV 91.9 fl (80.0-94.0) 07/16/17 09:15 MCH 30.2 pg (27.0-31.0) 07/16/17 09:15 MCHC 32.8 g/dL (33.0-37.0) L 07/16/17 09:15 RDW 14.4 % (11.5-14.5) 07/16/17 09:15 Plt Count 260 K/uL (130-400) 07/16/17 09:15 MPV 7.0 fl (7.2-11.7) L 07/16/17 09:15 Neut % (Auto) 42.4 % (50.0-75.0) L 07/16/17 09:15 Lymph % (Auto) 44.4 % (20.0-40.0) H 07/16/17 09:15 Nelson % (Auto) 9.6 % (0.0-10.0) 07/16/17 09:15 Eos % (Auto) 3.0 % (0.0-4.0) 07/16/17 09:15 Baso % (Auto) 0.6 % (0.0-2.0) 07/16/17 09:15 Neut # 2.9 K/uL (1.8-7.0) 07/16/17 09:15 Lymph # 3.0 K/uL (1.0-4.3) 07/16/17 09:15 Nelson # 0.7 K/uL (0.0-0.8) 07/16/17 09:15 Eos # 0.2 K/uL (0.0-0.7) 07/16/17 09:15 Baso # 0.0 K/uL (0.0-0.2) 07/16/17 09:15 PT 11.3 Seconds (9.8-13.1) 07/15/17 16:27 INR 1.1 (0.9-1.2) 07/15/17 16:27 APTT 19.2 Seconds (25.6-37.1) L 07/15/17 16:27 D-Dimer, Quantitative 356 ng/mlDDU (0-230) H 07/17/17 16:50 pO2 31 mm/Hg (30-55) 07/15/17 16:02 VBG pH 7.40 (7.32-7.43) 07/15/17 16:02 VBG pCO2 54 mmHg (40-60) 07/15/17 16:02 VBG HCO3 29.4 mmol/L 07/15/17 16:02 VBG Total CO2 35.1 mmol/L (22-28) H 07/15/17 16:02 VBG O2 Sat (Calc) 63.8 % (40-65) 07/15/17 16:02 VBG Base Excess 7.0 mmol/L (0.0-2.0) H 07/15/17 16:02 VBG Potassium 4.3 mmol/L (3.6-5.2) 07/15/17 16:02 Sodium 136.0 mmol/L (132-148) 07/15/17 16:02 Chloride 99.0 mmol/L (98-107) 07/15/17 16:02 Glucose 213 mg/dL (75-110) H 07/15/17 16:02 Lactate 1.3 mmol/L (0.7-2.1) 07/15/17 16:02 FiO2 21.0 % 07/15/17 16:02 Sodium 136 mmol/l (132-148) 07/16/17 09:15 Potassium 3.8 MMOL/L (3.6-5.0) 07/16/17 09:15 Chloride 104 mmol/L (98-107) 07/16/17 09:15 Carbon Dioxide 25 mmol/L (22-30) 07/16/17 09:15 Anion Gap 10 (10-20) 07/16/17 09:15 BUN 10 mg/dl (9-20) 07/16/17 09:15 Creatinine 0.8 mg/dL (0.8-1.5) 07/16/17 09:15 Est GFR ( Amer) > 60 07/16/17 09:15 Est GFR (Non-Af Amer) > 60 07/16/17 09:15 POC Glucose (mg/dL) 138 mg/dL (65-110) H 07/18/17 10:43 Random Glucose 195 mg/dL (75-110) H 07/16/17 09:15 Calcium 8.7 mg/dL (8.4-10.2) 07/16/17 09:15 Phosphorus 4.0 mg/dl (2.5-4.5) 07/15/17 16:27 Magnesium 1.9 MG/DL (1.6-2.3) 07/15/17 16:27 Total Bilirubin 0.9 mg/dl (0.2-1.3) 07/15/17 16:27 AST 39 U/L (17-59) 07/15/17 16:27 ALT 26 U/L (21-72) 07/15/17 16:27 Alkaline Phosphatase 80 U/L (38-126) 07/15/17 16:27 Troponin I < 0.0120 ng/mL (0.00-0.120) 07/16/17 09:00 C-React Prot High Sens 10.87 mg/L (1.00-3.00) H 07/17/17 16:50 NT-Pro-B Natriuret Pep 222 pg/ml (0-900) 07/15/17 16:27 Total Protein 8.1 G/DL (6.3-8.2) 07/15/17 16:27 Albumin 4.2 g/dL (3.5-5.0) 07/15/17 16:27 Globulin 3.9 gm/dL (2.2-3.9) 07/15/17 16:27 Albumin/Globulin Ratio 1.1 (1.0-2.1) 07/15/17 16:27 Procalcitonin < 0.05 NG/ML (0.19-0.49) L 07/17/17 16:50 Venous Blood Potassium 4.3 mmol/L (3.6-5.2) 07/15/17 16:02 Urine Color Yellow (YELLOW) 07/15/17 16:50 Urine Clarity Cloudy (Clear) 07/15/17 16:50 Urine pH 6.0 (5.0-8.0) 07/15/17 16:50 Ur Specific [place] 1.018 (1.003-1.030) 07/15/17 16:50 Urine Protein 100 mg/dL (NEGATIVE) 07/15/17 16:50 Urine Glucose (UA) Neg mg/dL (Normal) 07/15/17 16:50 Urine Ketones Negative mg/dL (NEGATIVE) 07/15/17 16:50 Urine Blood Small (NEGATIVE) 07/15/17 16:50 Urine Nitrate Negative (NEGATIVE) 07/15/17 16:50 Urine Bilirubin Negative (NEGATIVE) 07/15/17 16:50 Urine Urobilinogen 0.2-1.0 mg/dL (0.2-1.0) 07/15/17 16:50 Ur Leukocyte Esterase Large John/uL (Negative) 07/15/17 16:50 Urine RBC (Auto) 462 /hpf (0-3) H 07/15/17 16:50 Urine Microscopic WBC 230 /hpf (0-5) H 07/15/17 16:50 Urine Bacteria Occ (<OCC) H 07/15/17 16:50 Urine Yeast (Budding) Many /hpf (NEGATIVE) H 07/15/17 16:50 Vancomycin Trough 12.7 ug/mL (5.0-10.0) H 07/17/17 06:50 - Hospital Course Hospital Course: 62 yo male with history of DM2 and 2 previous CVA leaving him with right sided hemiparesis and being bed ridden since one year ago brought by to the ER because of worsening bilateral leg swelling going on for two weeks previous to the day of admission. His legs had been swollen since becoming bed ridden but the last few days they had gotten worse. Patient also had chronic pain all over the body which also had gotten worse the last few days previous to admission. His pain was worse on the right side due to history of hemiparesis. The patient was diagnosed with right lower extremity cellulitis in the ED. He was subsequently started on Vancomycin/Zosyn. He was also diagnosed with UTI with yeast. ID licensed tax consultant, Dr. Cloud, evaluated the patient- it is thought that the coagulase negative blood culture was likely due to contamination. The patient was continued on Vancomycin and Micafungin IV through his PICC line. Today, his vitals are stable. He is to be discharged home today with home health nurse to administer Vancomycin and Micafungin through his PICC line for 7 days. (1) RLE Cellulitis Status: Acute continue IV Vancomycin 1 gram IVPB q 12 hours through PICC line as outpatient Follow up with PMD in 1 week (2) UTI (lower urinary tract infection), associated with chronic indwelling Owens catheter ( POA) Status: Acute Continue Micafungin 100 mg IV daily as outpatient Owens in place since last CVA - changed by dr Berger's Visiting providers every month (3) DM2 (diabetes mellitus, type 2) Status: Chronic Metformin 500mg PO q 12hrs (4) History of CVA (cerebrovascular accident) Status: Chronic cont ASA , statin pain management with Gabapentin 5. HTN cont Coreg , Demadex 6. Intractable Generalized Pain, chronic, although improved since admission Pt on Oxycodone 80 mg tid , Gabapentin, Percocet 2 tabs q 6 hours - Has appointment with his pain management physician on 07/31/17 7. Constipation likely sec to Opiates and Immobility Miralax daily Discharge Exam - Head Exam Head Exam: ATRAUMATIC, NORMAL INSPECTION, NORMOCEPHALIC - Eye Exam Eye Exam: EOMI, Normal appearance, PERRL Pupil Exam: NORMAL ACCOMODATION - Respiratory Exam Respiratory Exam: Clear to PA & Lateral, NORMAL BREATHING PATTERN, UNREMARKABLE - Cardiovascular Exam Cardiovascular Exam: REGULAR RHYTHM, +S1, +S2 - GI/Abdominal Exam GI & Abdominal Exam: Normal Bowel Sounds, Unremarkable. absent: Pulsatile Mass , Rebound, Rigid - Rectal Exam Rectal Exam: NORMAL INSPECTION - Back Exam Back exam: NORMAL INSPECTION. absent: CVA tenderness (L), CVA tenderness (R) - Neurological Exam Neurological exam: Alert, CN II-XII Intact, Oriented x3 - Psychiatric Exam Psychiatric exam: Flat Affect, Normal Affect, Normal Mood - Skin Skin Exam: Dry, Intact, Normal Color, Warm Discharge Plan - Discharge Medications Prescriptions: Micafungin [Mycamine] 100 mg IV DAILY #1 vial Vancomycin/0.9 % Sod Chloride [Vanco 1 Gram/250 ml-0.9% NaCl] 1 gm IV Q12 #1 plast..bag - Follow Up Plan Condition: IMPROVED Disposition: HOME/ ROUTINE Instructions: Cellulitis (DC), Peripherally Inserted Central Catheters and Midline Catheters (DC), Cellulitis (GEN) Additional Instructions: ff up with PMD atilio appt with Urology ( in [place] ) atilio appt with Pain mgt Dr Lennie trimble
== END 2017-07-18 15:43 | disposition home health service (06) | DRG 699 ==
LOC: H.ER 15:29 → H.ERHOLD 17:42 → H.MEDSURG1 21:19
PROC: 02HV33Z Insertion of Infusion Device into Superior Vena Cava, Percutaneous Approach (ICD-10-PCS; principal; 2017-07-16)
PROC: B518ZZA Fluoroscopy of Superior Vena Cava, Guidance (ICD-10-PCS; 2017-07-16)
PROC: 3E04329 Introduction of Other Anti-infective into Central Vein, Percutaneous Approach (ICD-10-PCS; 2017-07-16)
DX: T83.511A Infection and inflammatory reaction due to indwelling urethral catheter, initial encounter (principal); L03.115 Cellulitis of right lower limb; B37.49 Other urogenital candidiasis; I69.351 Hemiplegia and hemiparesis following cerebral infarction affecting right dominant side; I69.354 Hemiplegia and hemiparesis following cerebral infarction affecting left non-dominant side; I10 Essential (primary) hypertension; E11.9 Type 2 diabetes mellitus without complications; G89.29 Other chronic pain; Y84.6 Urinary catheterization as the cause of abnormal reaction of the patient, or of later complication, without mention of misadventure at the time of the procedure; K59.03 Drug induced constipation; T40.605A Adverse effect of unspecified narcotics, initial encounter; F32.9 Major depressive disorder, single episode, unspecified; E78.00 Pure hypercholesterolemia, unspecified; D64.9 Anemia, unspecified; F41.9 Anxiety disorder, unspecified; K29.70 Gastritis, unspecified, without bleeding; Z74.01 Bed confinement status; Z87.440 Personal history of urinary (tract) infections; Z87.01 Personal history of pneumonia (recurrent); Z86.61 Personal history of infections of the central nervous system; Y92.9 Unspecified place or not applicable

== ENCOUNTER 2017-10-29 17:13 | Inpatient (IN) | payer MEDICARE, MEDICAID ==
[2017-10-29 17:13] VITALS: BMI 25.8
--- NOTE | 2017-10-29 18:06 | US ---
PROCEDURE: Bilateral lower extremity venous duplex Doppler. HISTORY: Bilateral leg swelling COMPARISON: None available. TECHNIQUE: Bilateral common femoral, superficial femoral, popliteal and posterior tibial veins were evaluated. Flow was assessed with color Doppler, compressibility, assessment of phasic flow and augmentation response. FINDINGS: COMMON FEMORAL VEIN: Right CFV: There is normal direction of flow, compressibility and augmentation response. Left CFV: There is normal direction of flow, compressibility and augmentation response. SUPERFICIAL FEMORAL VEIN: Right SFV: There is normal direction of flow, compressibility and augmentation response. Left SFV: There is normal direction of flow, compressibility and augmentation response. POPLITEAL VEIN: Right Popliteal: There is normal direction of flow, compressibility and augmentation response. Left Popliteal: There is normal direction of flow, compressibility and augmentation response. POSTERIOR TIBIAL VEIN: Right PTV: There is normal direction of flow, compressibility and augmentation response. Left PTV: There is normal direction of flow, compressibility and augmentation response. OTHER FINDINGS: None. IMPRESSION: No evidence of deep venous thrombosis.
--- NOTE | 2017-10-29 18:28 | ED PDOC ---
Lower Extremity Pain/Injury Time Seen by Provider: 10/29/17 17:23 Chief Complaint (Nursing): Lower Extremity Problem/Injury Chief Complaint (Provider): Lower extremity problem History Per: Patient History/Exam Limitations: no limitations Onset/Duration Of Symptoms: Days (x2 weeks) Current Symptoms Are (Timing): Still Present Pain Scale Rating Of: 10 Additional Complaint(s): Lan Klein is a 62 year old male, with a past medical history of Hypertension and peripheral edema, who presents to the emergency department complaining of left foot infection associated with subjective fever and chills onset x2 weeks ago. Patient states the great toe of left foot is red and swollen , and has gradually worsen since onset. It is also associated with discharge from underneath nail for x1 week. Patient also reports swelling to right foot, ankle and lower leg. Patient is bed bound and denies any trauma to foot. He has a history of cellulitis to legs in the past, last remission was x3 months ago. Patient is mostly visited by REJI Lopez. He is complaining of chronic back pain and reports taking pain medications with no relief. No further medical complaints. Requesting dilaudid for pain control. 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) , Depression, Gastritis, HTN, Hypercholesterolemia, Peripheral Edema, Pneumonia Denies: HIV, Chronic Kidney Disease - Family History Family History: States: Unknown Family Hx - Social History Current smoker - smoking cessation education provided: No Alcohol: None Drugs: Denies - Immunization History Hx Tetanus Toxoid Vaccination: No Hx Influenza Vaccination: No Hx Pneumococcal Vaccination: No - Home Medications Home Medications: Ambulatory Orders Medication Instructions Recorded Clonazepam [Klonopin] 2 mg PO HS 05/09/17 Polyethylene Glycol 3350 [Miralax] 17 gm PO DAILY PRN 05/09/17 clonazePAM [Klonopin] 1 mg PO QAM 05/09/17 Naloxegol Oxalate [Movantik] 25 mg PO DAILY #60 05/13/17 Amoxicillin/Clavulanate [Augmentin 1 tab PO BID 10/29/17 875 MG-125 MG Tab] Clopidogrel [Plavix] 75 mg PO DAILY 10/29/17 FLUoxetine [Prozac] 20 mg PO HS 10/29/17 Gabapentin [Neurontin] 800 mg PO Q8H 10/29/17 Insulin Aspart, Recombinant 4 - 16 unit SC ACTID 10/29/17 [Novolog] Insulin Degludec [Tresiba 10 unit SC DAILY 10/29/17 Flextouch U-100] Oxycodone HCl [Oxycontin] 80 mg PO Q8H 10/29/17 Oxycodone HCl/Acetaminophen 1 tab PO Q4H PRN 10/29/17 [Percocet 10-325 mg Tablet] Rosuvastatin Calcium [Crestor] 40 mg PO HS 10/29/17 Torsemide [Demadex] 10 mg PO DAILY 10/29/17 Trazodone HCl [Trazodone HCl] 150 mg PO HS 10/29/17 lamoTRIgine [Lamictal] 50 mg PO Q12H 10/29/17 Amoxicillin/Clavulanate [Augmentin 1 tab PO BID #14 tab 10/31/17 875 MG-125 MG] - Allergies Allergies/Adverse Reactions: Allergies Allergy/AdvReac Type Severity Reaction Status Date / Time No Known Allergies Allergy Verified 05/09/17 17:30 Review of Systems ROS Statement: Except As Marked, All Systems Reviewed And Found Negative (and as per HPI) Constitutional: Positive for: Fever, Chills Musculoskeletal: Positive for: Back Pain (chronic), Foot Pain (redness, swelling of great toe w/ discharge from underneath nail), Other (swelling to right foot, ankle, and lower leg) Physical Exam - Reviewed Nursing Documentation Reviewed: Yes Vital Signs Reviewed: Yes - Physical Exam Appears: Positive for: Non-toxic, In Acute Distress Head Exam: Positive for: ATRAUMATIC, NORMOCEPHALIC Skin: Positive for: Warm, Pallor Eye Exam: Positive for: EOMI, PERRL ENT: Positive for: Pharynx Is (clear with tacky mucus membranes) Neck: Positive for: Painless ROM, Supple Cardiovascular/Chest: Positive for: Regular Rate, Rhythm. Negative for: Murmur Respiratory: Negative for: Wheezing, Respiratory Distress Gastrointestinal/Abdominal: Positive for: Soft. Negative for: Tenderness Back: Positive for: Vertebral Tenderness Extremity: Positive for: Tenderness, Pedal Edema, Other (LEFT foot great toe: brown secretions surrounding toenail and erythema of distal phalanx. RIGHT foot : edema at foot and ankle with subtle erythema and calf tenderness) Lymphatic: Negative for: Adenopathy Neurologic/Psych: Positive for: Alert. Negative for: Motor/Sensory Deficits - Laboratory Results Result Diagrams: 10/30/17 05:35 10/30/17 05:35 - ECG O2 Sat by Pulse Oximetry: 98 (RA) Pulse Ox Interpretation: Normal Medical Decision Making Medical Decision Making: Initial Impression: left foot cellulitis, and right leg swelling. Initial Plan: --Type and screen --VBG Shock Panel --B-Type Natriuretic Panel Peptide --Urine dipstick --CBC w/ differential --Erythrocyte sedimentation rate --PTT --PT --Chest one view [RAD] --Dilaudid 0.5 mg IV --Blood culture --Urine culture --Foot left 3 views routine [RAD] --Urinalysis --reevaluation 18:05 Extremity US FINDINGS: COMMON FEMORAL VEIN: Right CFV: There is normal direction of flow, compressibility and augmentation response. Left CFV: There is normal direction of flow, compressibility and augmentation response. SUPERFICIAL FEMORAL VEIN: Right SFV: There is normal direction of flow, compressibility and augmentation response. Left SFV: There is normal direction of flow, compressibility and augmentation response. POPLITEAL VEIN: Right Popliteal: There is normal direction of flow, compressibility and augmentation response. Left Popliteal: There is normal direction of flow, compressibility and augmentation response. POSTERIOR TIBIAL VEIN: Right PTV: There is normal direction of flow, compressibility and augmentation response. Left PTV: There is normal direction of flow, compressibility and augmentation response. OTHER FINDINGS: None. IMPRESSION: No evidence of deep venous thrombosis. [facility] Podiatry who evaluated pt in ER. LUISA Sprague Hospitalist for hospitalization for cellulitis Scribe Attestation: Documented by Esau Rodriguez, acting as a scribe for Stefany Chavez MD Provider Scribe Attestation: All medical record entries made by the Scribe were at my direction and personally dictated by me. I have reviewed the chart and agree that the record accurately reflects my personal performance of the history, physical exam, medical decision making, and the department course for this patient. I have also personally directed, reviewed, and agree with the discharge instructions and disposition. Disposition - Clinical Impression Clinical Impression: Cellulitis, leg - Disposition Disposition Time: 21:00 Condition: FAIR - Pt Status Changed To: Hospital Disposition Of: Observation - POA Present On Arrival: Falls Or Trauma (risk)
--- NOTE | 2017-10-29 18:35 | CP.PCM.CON ---
History of Present Illness - History of Present Illness History of Present Illness: Podiatry Consult note for Dr. Messina 62 year old male with PMHx including DM, HTN, Hypercholesterolemia, gastritis, anemia, anxiety, CVA was seen at bedside for left great toe pain. He states that about a month ago a ad writer came to cut his toenails and states that he cut this nail wrong. He states that in the past few weeks the pain and redness to his great toe have gotten worse. He denies any trauma to his nail or foot. He states that the visiting nurse came yesterday and saw his nail and then his ad writer was called who suggested they come to the ED. He denies any treatment to his left hallux nail. Currently denies any n/v/f/c/sob/cp. Past Patient History - Tetanus Immunizations Tetanus Immunization: Unknown - Past Medical History & Family History Past Medical History?: Yes - Past Social History Smoking Status: Never Smoked - CARDIAC Hx Hypercholesterolemia: Yes Hx Hypertension: Yes Hx Peripheral Edema: Yes - PULMONARY Hx Pneumonia: Yes - NEUROLOGICAL Hx Neurological Disorder: Yes HX Cerebrovascular Accident: Yes (9yrs ago) - HEENT Hx HEENT Problems: Yes Other/Comment: eyeglasses - RENAL Hx Chronic Kidney Disease: No - ENDOCRINE/METABOLIC Hx Endocrine Disorders: Yes Hx Diabetes Mellitus Type 2: Yes - HEMATOLOGICAL/ONCOLOGICAL Hx Anemia: Yes Hx Human Immunodeficiency Virus (HIV): No - INTEGUMENTARY Hx Dermatological Problems: No - MUSCULOSKELETAL/RHEUMATOLOGICAL Hx Musculoskeletal Disorders: No Hx Falls: No - GASTROINTESTINAL Hx Gastritis: Yes - GENITOURINARY/GYNECOLOGICAL Hx Genitourinary Disorders: Yes Hx Incontinence: Yes Hx Prostate Problems: Yes Hx Urinary Tract Infection: Yes (urinary retention) - PSYCHIATRIC Hx Anxiety: Yes Hx Depression: Yes - SURGICAL HISTORY Hx Surgeries: Yes Other/Comment: Neck Sx, Right hand Sx, Right leg Sx, cystoscopy , R ankle surgery - ANESTHESIA Hx Anesthesia: Yes Hx Anesthesia Reactions: No Hx Malignant Hyperthermia: No Meds Allergies/Adverse Reactions: Allergies Allergy/AdvReac Type Severity Reaction Status Date / Time No Known Allergies Allergy Verified 05/09/17 17:30 Physical Exam - Constitutional Appears: Non-toxic, No Acute Distress - Extremities Exam Additional comments: Lower extremity focused exam: Vasc:DP pulses non-palpable b/l due to edema. PT pulse palpable 2/4 on the right, PT pulses palpable 1/4 on the left. Pulses are biphasic upon doppler examination. Skin temperature warm to warm from proximal to distal b/l. Neuro: Gross sensation diminished b/l. Ortho: Tenderness on palpation to left hallux medial border Derm: Area of hypertrophy, erythema and edema noted to left hallux medial nail border, no drainage, no malodor, no purulence noted. Erythema noted to the distal aspect of the left hallux. Subungular hematoma noted to the left hallux nail bed. Right leg is more edeamtous than the right leg with mild amount of erythema noted to right leg - Neurological Exam Neurological exam: Alert, Oriented x3 - Psychiatric Exam Psychiatric exam: Normal Affect, Normal Mood Results - Vital Signs Recent Vital Signs: Last Vital Signs Temp 97.7 F 10/29/17 17:17 Pulse 89 10/29/17 17:17 Resp 16 10/29/17 17:17 BP 123/41 L 10/29/17 17:17 Pulse Ox 98 10/29/17 18:28 - Labs Result Diagrams: 10/30/17 05:35 10/30/17 05:35 Assessment & Plan - Assessment and Plan (Free Text) Assessment: 62 year old male with left hallux paronycia with subungula hematoma Plan: patient examined and evaluated discussed in detail with attending, Dr. Messina chart, lab, vitals reviewed Venous duplex-no DVT radiographs reviewed consent was obtained, a local block consisting of 4.5 mL of 1% lidocaine plain was given to the left hallux, CFT to hallux was immediate, the hallux was cleansed with betadine. utilizing a freer the nail was freed from the nail bed. next, the nail was removed utilizing a hemostat. the area was cleansed with normal sterile saline, dressed with bacitracin,xerofomr,DSD. patient to keep dressing c/d/i, podiatry to change dressing while patient in house, after discharge, may soak for 10 minutues in warm water with epsom salts, dry, and cover with bacitracin and bandaid. abx per primary podiatry will continue to follow patient while in house patient to fu with Dr. Messina
[2017-10-29] MEDS ORDERED: Lidocaine 1% Inj (20ml) IJ ONE (19:33)
[2017-10-29 19:36] LABS: BASO # 0.1 K/uL (0.0-0.2); BASO % 0.6 % (0.0-2.0); EOS # 0.1 K/uL (0.0-0.7); EOS % 1.7 % (0.0-4.0); HEMATOCRIT 41.6 % (35.0-51.0); LYMPH # 4.1 K/uL (1.0-4.3); LYMPH % 47.7 % (20.0-40.0); MEAN CELL VOLUME 90.8 fl (80.0-94.0); MEAN CORPUSCULAR HEMOGLOBIN 29.3 pg (27.0-31.0); MEAN CORPUSCULAR HGB CONC 32.3 g/dL (33.0-37.0); MEAN PLATELET VOLUME 7.3 fl (7.2-11.7); MONO # 0.7 K/uL (0.0-0.8); MONO % 8.5 % (0.0-10.0); NEUT # 3.6 K/uL (1.8-7.0); NEUT % 41.5 % (50.0-75.0); NRBC % 0.1 % (0.0-0.0); RED CELL DISTRIBUTION WIDTH 15.2 % (11.5-14.5); WHITE BLOOD COUNT 8.6 K/uL (4.8-10.8)
[2017-10-29 19:40] LABS: ALB/GLOB RATIO 1.1 (1.0-2.1); ALKALINE PHOSPHATASE 80 U/L (38-126); ALT/SGPT 24 U/L (21-72); AST/SGOT 28 U/L (17-59); BILIRUBIN,TOTAL 0.5 mg/dl (0.2-1.3); BLOOD UREA NITROGEN 18 mg/dl (9-20); CARBON DIOXIDE 24 mmol/L (22-30); CHLORIDE 104 mmol/L (98-107); GFR AFRICAN-AMERICAN > 60; GLUCOSE,RANDOM 87 mg/dL (75-110); POTASSIUM 3.6 MMOL/L (3.6-5.0); SODIUM 137 mmol/l (132-148); TOTAL PROTEIN 8.2 G/DL (6.3-8.2)
[2017-10-29 19:42] LABS: VENOUS BLOOD GAS BASE EXCESS -1.7 mmol/L (0.0-2.0); VENOUS BLOOD GAS PCO2 50 mmHg (40-60); VENOUS BLOOD PH 7.31 (7.32-7.43)
[2017-10-29 19:45] LABS: PARTIAL THROMBOPLASTIN TIME 30.2 Seconds (25.6-37.1)
[2017-10-29] MEDS ORDERED: Piperacillin/Tazobact 3.375 GM in Sodium Chloride 0.9% 100 ML IV STA (20:30)
[2017-10-29 20:52] LABS: RBC URINE 12 /hpf (0-3); URINE BACTERIA RARE (<OCC); URINE BILIRUBIN NEGATIVE (NEGATIVE); URINE BLOOD MODERATE (NEGATIVE); URINE COLOR YELLOW (YELLOW); URINE GLUCOSE (UA) 150 mg/dL (Normal); URINE KETONE NEGATIVE (NEGATIVE); URINE LEUKOCYTE ESTERASE LARGE Leu/uL (Negative); URINE PROTEIN 100 mg/dL (NEGATIVE); URINE UROBILINOGEN 0.2-1.0 mg/dL (0.2-1.0); WBC URINE 40 /hpf (0-5)
--- NOTE | 2017-10-29 21:05 | CP.PCM.HP ---
History of Present Illness - History of Present Illness History of Present Illness: CC: b/l LE cellulitis HPI: This is a 62 y/o male with HTN, HLD, DM2, prior CVA with R sided hemiparesis and multiple other conditions who comes in with a few weeks of progressive L great toe pain and redness/swelling in feet/legs b/l for past several days. He said it may have started about a month ago when a assistant hairstylist came to his house and 'cut his nails wrong'. As stated his symptoms have gotten progressively worse. States he has had tactile fevers, chills, but no n/v/d. No significant drainage from extremeties. No Hx of MRSA in the past, but has had multiple episodes of leg/foot cellulitis. He came in when advised to by visiting nurse. PCP: [facility] MHx: DM2, HTN, HLD, CVA with R sided hemiparesis, anxiety, anemia; [facility] SHx: R foot surgeries (multiple), appx, ear surgery Allergies: NKDA Medications: as per med rec Family Hx: no relevant findings Social Hx: Lives with family, no EtOH, no tobacco Surrogate: , info on chart Present on Admission - Present on Admission Any Indicators Present on Admission: No Past Patient History - Tetanus Immunizations Tetanus Immunization: Unknown - Past Medical History & Family History Past Medical History?: Yes - Past Social History Smoking Status: Never Smoked - CARDIAC Hx Hypercholesterolemia: Yes Hx Hypertension: Yes Hx Peripheral Edema: Yes - PULMONARY Hx Pneumonia: Yes - NEUROLOGICAL Hx Neurological Disorder: Yes HX Cerebrovascular Accident: Yes (9yrs ago) - HEENT Hx HEENT Problems: Yes Other/Comment: eyeglasses - RENAL Hx Chronic Kidney Disease: No - ENDOCRINE/METABOLIC Hx Endocrine Disorders: Yes Hx Diabetes Mellitus Type 2: Yes - HEMATOLOGICAL/ONCOLOGICAL Hx Anemia: Yes Hx Human Immunodeficiency Virus (HIV): No - INTEGUMENTARY Hx Dermatological Problems: No - MUSCULOSKELETAL/RHEUMATOLOGICAL Hx Musculoskeletal Disorders: No Hx Falls: No - GASTROINTESTINAL Hx Gastritis: Yes - GENITOURINARY/GYNECOLOGICAL Hx Genitourinary Disorders: Yes Hx Incontinence: Yes Hx Prostate Problems: Yes Hx Urinary Tract Infection: Yes (urinary retention) - PSYCHIATRIC Hx Anxiety: Yes Hx Depression: Yes - SURGICAL HISTORY Hx Surgeries: Yes Other/Comment: Neck Sx, Right hand Sx, Right leg Sx, cystoscopy , R ankle surgery - ANESTHESIA Hx Anesthesia: Yes Hx Anesthesia Reactions: No Hx Malignant Hyperthermia: No Meds Allergies/Adverse Reactions: Allergies Allergy/AdvReac Type Severity Reaction Status Date / Time No Known Allergies Allergy Verified 05/09/17 17:30 Physical Exam - Constitutional Appears: No Acute Distress, Chronically Ill - Head Exam Head Exam: ATRAUMATIC, NORMOCEPHALIC - Eye Exam Eye Exam: EOMI, PERRL - ENT Exam ENT Exam: Mucous Membranes Moist - Neck Exam Neck exam: Positive for: Full Rom - Cardiovascular Exam Cardiovascular Exam: REGULAR RHYTHM, +S1, +S2 - GI/Abdominal Exam GI & Abdominal Exam: Normal Bowel Sounds, Soft - Extremities Exam Additional comments: b/l LE redness, LLE in bandage after podiatry exam/procedure; redness up to knee on RLE; swelling in b/l LE Results - Vital Signs Recent Vital Signs: Last Vital Signs Temp 97.7 F 10/29/17 17:17 Pulse 89 10/29/17 17:17 Resp 16 10/29/17 17:17 BP 123/41 L 10/29/17 17:17 Pulse Ox 98 10/29/17 18:39 - Labs Result Diagrams: 10/29/17 19:22 10/29/17 19:22 Labs: Laboratory Results - last 24 hr 10/29/17 10/29/17 10/29/17 19:22 19:22 19:22 WBC 8.6 RBC 4.58 Hgb 13.4 D Hct 41.6 MCV 90.8 MCH 29.3 MCHC 32.3 L RDW 15.2 H Plt Count 260 MPV 7.3 Neut % (Auto) 41.5 L Lymph % (Auto) 47.7 H [place] % (Auto) 8.5 Eos % (Auto) 1.7 Baso % (Auto) 0.6 Neut # 3.6 Lymph # 4.1 [place] # 0.7 Eos # 0.1 Baso # 0.1 PT 11.5 INR 1.0 APTT 30.2 pO2 VBG pH VBG pCO2 VBG HCO3 VBG Total CO2 VBG O2 Sat (Calc) VBG Base Excess VBG Potassium Glucose Lactate FiO2 Sodium 137 Potassium 3.6 Chloride 104 Carbon Dioxide 24 Anion Gap 13 BUN 18 Creatinine 1.3 Est GFR ( Amer) > 60 Est GFR (Non-Af Amer) 56 Random Glucose 87 Calcium 9.0 Total Bilirubin 0.5 AST 28 ALT 24 Alkaline Phosphatase 80 NT-Pro-B Natriuret Pep 66.1 Total Protein 8.2 Albumin 4.2 Globulin 3.9 Albumin/Globulin Ratio 1.1 Venous Blood Potassium 10/29/17 19:35 WBC RBC Hgb Hct MCV MCH MCHC RDW Plt Count MPV Neut % (Auto) Lymph % (Auto) [place] % (Auto) Eos % (Auto) Baso % (Auto) Neut # Lymph # [place] # Eos # Baso # PT INR APTT pO2 36 VBG pH 7.31 L VBG pCO2 50 VBG HCO3 22.7 VBG Total CO2 26.7 VBG O2 Sat (Calc) 73.4 H VBG Base Excess -1.7 L VBG Potassium 3.5 L Glucose 91 Lactate 0.7 FiO2 21.0 Sodium 132.0 Potassium Chloride 105.0 Carbon Dioxide Anion Gap BUN Creatinine Est GFR ( Amer) Est GFR (Non-Af Amer) Random Glucose Calcium Total Bilirubin AST ALT Alkaline Phosphatase NT-Pro-B Natriuret Pep Total Protein Albumin Globulin Albumin/Globulin Ratio Venous Blood Potassium 3.5 L - Imaging and Cardiology Venous US Status: Report reviewed by me (no DVT) Assessment & Plan (1) Cellulitis, leg Assessment and Plan: 62 y/o male with DM2 and multiple episodes of cellulitis who comes in with recurrent cellulitis. 1) Cellulitis b/l -Continue vanc/zosyn; consider adding ciprofloxacin for double coverage of Pseudomonas -f/u cultures -Podiatry consult -Pain control per scale 2) DM2 -Continue 10 U of LA insulin daily -SSI/Accuchecks -DM2 diet 3) DVT PPx -- SQ Lovenox Status: Acute (2) DM2 (diabetes mellitus, type 2) Status: Acute (3) DVT prophylaxis Status: Acute
[2017-10-29] MEDS ORDERED: POLYETHYLENE GLYCOL 3350 17 GM/Dose PACKET PO PRN (21:13)
[2017-10-29] MEDS ORDERED: oxyCODONE 40 mg ER Tab (oxyCONTIN) PO SCH (21:15)
[2017-10-29] MEDS ORDERED: Oxycodone/Acetaminophen 5/325 mg Tab PO PRN (21:24)
[2017-10-29] MEDS: Piperacillin/Tazobact 3.375 GM in Sodium Chloride 0.9% 100 ML IVPB SCH (23:59)
[2017-10-30] MEDS: Insulin Lispro (humaLOG) 100 Units/ml Inj SC SCH ×5 (00:44→21:46)
[2017-10-30] MEDS: Piperacillin/Tazobact 3.375 GM in Sodium Chloride 0.9% 100 ML IVPB SCH ×4 (05:04→21:44)
[2017-10-30 06:25] LABS: BASO % 0.6 % (0.0-2.0); EOS # 0.1 K/uL (0.0-0.7); EOS % 1.7 % (0.0-4.0); LYMPH # 3.7 K/uL (1.0-4.3); LYMPH % 42.3 % (20.0-40.0); MEAN CELL VOLUME 91.5 fl (80.0-94.0); MEAN CORPUSCULAR HEMOGLOBIN 29.5 pg (27.0-31.0); MEAN CORPUSCULAR HGB CONC 32.2 g/dL (33.0-37.0); MEAN PLATELET VOLUME 7.1 fl (7.2-11.7); MONO # 0.8 K/uL (0.0-0.8); MONO % 8.8 % (0.0-10.0); NEUT # 4.1 K/uL (1.8-7.0); NEUT % 46.6 % (50.0-75.0); NRBC % 0.1 % (0.0-0.0); RED CELL DISTRIBUTION WIDTH 15.3 % (11.5-14.5); WHITE BLOOD COUNT 8.7 K/uL (4.8-10.8)
[2017-10-30 06:35] LABS: BLOOD UREA NITROGEN 17 mg/dl (9-20); CALCIUM 8.8 mg/dL (8.4-10.2); CARBON DIOXIDE 23 mmol/L (22-30); CHLORIDE 107 mmol/L (98-107); GFR AFRICAN-AMERICAN > 60; GLUCOSE,RANDOM 123 mg/dL (75-110); POTASSIUM 3.7 MMOL/L (3.6-5.0); SODIUM 141 mmol/l (132-148)
--- NOTE | 2017-10-30 07:16 | CP.PCM.PN ---
Subjective - Date & Time of Evaluation Date of Evaluation: 10/30/17 Time of Evaluation: 07:14 - Subjective Subjective: Podiatry Progress Note - Dr. Messina 62 year old male patient PMHx including DM, HTN, Hypercholesterolemia, gastritis , anemia, anxiety, CVA was seen at bedside for left great toe infected ingrown nail. Patient hemodynamically stable and NAD. present at bedside. Denies any acute events overnight. Reports mild soreness to left great toe. Complaining of RLE edema of 6+ months duration. Admits he has chronic pain in bilateral legs as well as right arm and back. Denies N/V/F/D/C/SOB/calf pain. Objective - Vital Signs/Intake and Output Vital Signs (last 24 hours): Temp Pulse Resp BP Pulse Ox 97.3 F L 59 L 19 93/55 L 97 10/30/17 00:00 10/30/17 00:00 10/30/17 00:00 10/30/17 00:00 10/30/17 00:00 Intake and Output: 10/30/17 10/30/17 06:59 18:59 Intake Total 530 Output Total 850 Balance -320 - Medications Medications: Current Medications Acetaminophen (Tylenol 325mg Tab) 650 mg PO Q6 PRN PRN Reason: Pain, Mild (1-3) Atorvastatin Calcium (Lipitor) 80 mg PO HS [facility] Last Admin: 10/30/17 00:46 Dose: 80 mg Clonazepam (Klonopin) 1 mg PO QAM [facility] Clonazepam (Klonopin) 2 mg PO HS [facility] Last Admin: 10/30/17 00:44 Dose: Not Given Clopidogrel Bisulfate (Plavix) 75 mg PO DAILY [facility] Enoxaparin Sodium (Lovenox) 40 mg SC DAILY [facility] PRN Reason: Protocol Fluoxetine HCl (Prozac) 20 mg PO HS [facility] Last Admin: 10/30/17 00:47 Dose: 20 mg Gabapentin (Neurontin) 800 mg PO Q8@0100,0900,1700 [facility] Hydromorphone HCl (Dilaudid) 1 mg IVP Q4 PRN PRN Reason: Pain, severe (8-10) Vancomycin HCl 1 gm/ Sodium (Chloride) 250 mls @ 166.667 mls/hr IVPB Q12 [facility] PRN Reason: Protocol Piperacillin Sod/Tazobactam (Sod 3.375 gm/ Sodium Chloride) 100 mls @ 100 mls/ hr IVPB Q6 [facility] PRN Reason: Protocol Last Admin: 10/30/17 05:04 Dose: 100 mls/hr Influenza Virus Vaccine (Afluria (Pf)(18yr & Older)) 0.5 ml IM .ONCE ONE Stop: 10/30/17 08:01 Insulin Detemir (Levemir) 10 units SC DAILY [facility] Insulin Human Lispro (Humalog) 0 units SC ACHS [facility] PRN Reason: Protocol Last Admin: 10/30/17 00:44 Dose: Not Given Lamotrigine (Lamictal) 50 mg PO Q12H [facility] Last Admin: 10/30/17 00:47 Dose: 50 mg Oxycodone HCl (Oxycontin Extended Release Tab) 80 mg PO Q8@0100,0900,1700 [facility] Oxycodone/Acetaminophen (Percocet 5/325 Mg Tab) 2 tab PO Q4 PRN PRN Reason: Pain, moderate (4-7) Stop: 11/01/17 21:25 Pneumococcal Polyvalent Vaccine (Pneumovax 23 Vaccine) 0.5 ml IM .ONCE ONE Stop: 10/30/17 08:01 Polyethylene Glycol (Miralax) 17 gm PO DAILY PRN PRN Reason: Constipation Torsemide (Demadex) 10 mg PO DAILY [facility] Trazodone HCl (Desyrel) 150 mg PO HS [facility] Last Admin: 10/30/17 00:44 Dose: Not Given - Labs Labs: 10/30/17 05:35 10/30/17 05:35 PT 11.5 Seconds (9.8-13.1) 10/29/17 19:22 INR 1.0 (0.9-1.2) 10/29/17 19:22 APTT 30.2 Seconds (25.6-37.1) 10/29/17 19:22 - Constitutional Appears: Well, Non-toxic, No Acute Distress - Extremities Exam Additional comments: Lower extremity focused exam: Vasc: DP pulses weakly palpable 1/4 b/l. PT pulses weakly palpable 1/4 b/l. Pulses are biphasic upon doppler examination. Skin temperature warm to warm from proximal to distal b/l. Mild increase in warmth noted to left hallux. Nonpitting edema noted to RLE. No edema noted to LLE. Neuro: Gross sensation diminished b/l. Ortho: Pain on palpation left hallucal nail bed. Avulsed nail 1 left foot. Derm: Area of hypertrophy, erythema and edema noted to left hallux with dried blood on nail bed s/p avulsion. - Neurological Exam Neurological Exam: Alert, Awake, Oriented x3 - Psychiatric Exam Psychiatric exam: Normal Affect, Normal Mood Assessment and Plan - Assessment and Plan (Free Text) Assessment: 62 year old male with left hallux paronychia with subungual hematoma s/p left hallux temporary nail avulsion Plan: Patient seen and evaluated at bedside with attending, Dr. Messina Afebrile, absent leukocytosis Venous duplex-no DVT Left hallux flushed with normal saline and dressed with bacitracin DSD -Bactroban ordered for QD dressing changes Continue IV abx per medicine - Vancomycin, Zosyn Stable from podiatry standpoint Advised patient to follow up with Dr. Messina in office within 1 week of discharge. Patient to do QD soaks with application of bactroban DSD at home prior to 1st outpatient visit Podiatry will continue to follow patient while in house
[2017-10-30] MEDS ORDERED: Influenza Vaccine 18yr & older 0.5 ML/45 MCG SYR IM ONE (08:00)
[2017-10-30] MEDS ORDERED: Pneumococcal 23-Valent Vaccine IM ONE (08:00)
--- NOTE | 2017-10-30 10:08 | RAD ---
PROCEDURE: CHEST RADIOGRAPH, 1 VIEW HISTORY: bodyaches COMPARISON: Chest radiograph dated 07/15/2017. FINDINGS: LUNGS: Clear. PLEURA: No pneumothorax or pleural fluid seen. CARDIOVASCULAR: Unchanged. OSSEOUS STRUCTURES: Anterior cervical fixation plate redemonstrated. Visualized osseous structures unchanged. VISUALIZED UPPER ABDOMEN: Normal. OTHER FINDINGS: None. IMPRESSION: No active disease.
--- NOTE | 2017-10-30 10:10 | RAD ---
PROCEDURE: Left Foot Radiographs. HISTORY: LEFT foot pain COMPARISON: None. FINDINGS: BONES: Osteopenia. No fracture. JOINTS: Unremarkable. SOFT TISSUES: Normal. OTHER FINDINGS: Arterial vascular calcifications. IMPRESSION: No demonstrated fracture or dislocation.
[2017-10-30] MEDS: oxyCODONE 40 mg ER Tab (oxyCONTIN) PO SCH ×2 (10:18→16:35)
[2017-10-30] MEDS: Enoxaparin 40 mg Syringe SC SCH (10:19)
[2017-10-30] MEDS: Insulin Detemir 100 Units/ml Inj SC SCH (10:20)
--- NOTE | 2017-10-30 14:04 | CP.PCM.PN ---
Subjective - Date & Time of Evaluation Date of Evaluation: 10/30/17 Time of Evaluation: 14:00 - Subjective Subjective: No fever complains of left foot pain and generalized pain no CP no SOB no cough no abd pain no pubic pain Owens cath in place ( Chronic) Objective - Vital Signs/Intake and Output Vital Signs (last 24 hours): Temp Pulse Resp BP Pulse Ox 97.4 F L 52 L 20 92/54 L 93 L 10/30/17 08:06 10/30/17 08:06 10/30/17 08:06 10/30/17 08:06 10/30/17 08:06 Intake and Output: 10/30/17 10/30/17 06:59 18:59 Intake Total 530 Output Total 850 Balance -320 - Medications Medications: Current Medications Acetaminophen (Tylenol 325mg Tab) 650 mg PO Q6 PRN PRN Reason: Pain, Mild (1-3) Atorvastatin Calcium (Lipitor) 80 mg PO HS [facility] Last Admin: 10/30/17 00:46 Dose: 80 mg [facility] ([facility]) [facility] [place] Admin: 10/30/17 10:25 Dose: 1 mg Clonazepam (Klonopin) 2 mg PO [facility] Last Admin: 10/30/17 00:44 Dose: Not Given Clopidogrel Bisulfate (Plavix) 75 mg PO DAILY [facility] Last Admin: 10/30/17 10:19 Dose: 75 mg Enoxaparin Sodium (Lovenox) 40 mg SC DAILY [facility] PRN Reason: Protocol Last Admin: 10/30/17 10:19 Dose: 40 mg Fluoxetine HCl (Prozac) 20 mg PO [facility] Last Admin: 10/30/17 00:47 Dose: 20 mg Gabapentin (Neurontin) 800 mg PO Q8@0100,0900,1700 [facility] Last Admin: 10/30/17 10:19 Dose: 800 mg Hydromorphone HCl (Dilaudid) 1 mg IVP Q4 PRN PRN Reason: Pain, severe (8-10) Last Admin: 10/30/17 12:33 Dose: 1 mg Vancomycin HCl 1 gm/ Sodium (Chloride) 250 mls @ 166.667 mls/hr IVPB Q12 [facility] PRN Reason: Protocol Last Admin: 10/30/17 13:42 Dose: 166.667 mls/hr Piperacillin Sod/Tazobactam (Sod 3.375 gm/ Sodium Chloride) 100 mls @ 100 mls/ hr IVPB Q6 [facility] PRN Reason: Protocol Last Admin: 10/30/17 10:00 Dose: Not Given Insulin Detemir (Levemir) 10 units SC DAILY [facility] Last Admin: 10/30/17 10:20 Dose: 10 units Insulin Human Lispro (Humalog) 0 units SC ACHS [facility] PRN Reason: Protocol Last Admin: 10/30/17 11:59 Dose: Not Given Lamotrigine (Lamictal) 50 mg PO Q12H [facility] Last Admin: 10/30/17 10:18 Dose: 50 mg Oxycodone HCl (Oxycontin Extended Release Tab) 80 mg PO Q8@0100,0900,1700 [facility] Last Admin: 10/30/17 10:18 Dose: 80 mg Oxycodone/Acetaminophen (Percocet 5/325 Mg Tab) 2 tab PO Q4 PRN PRN Reason: Pain, moderate (4-7) Stop: 11/01/17 21:25 Polyethylene Glycol (Miralax) 17 gm PO DAILY PRN PRN Reason: Constipation Torsemide (Demadex) 10 mg PO DAILY [facility] Last Admin: 10/30/17 09:00 Dose: Not Given Trazodone HCl (Desyrel) 150 mg PO HS [facility] Last Admin: 10/30/17 00:44 Dose: Not Given - Labs Labs: 10/30/17 05:35 10/30/17 05:35 PT 11.5 Seconds (9.8-13.1) 10/29/17 19:22 INR 1.0 (0.9-1.2) 10/29/17 19:22 APTT 30.2 Seconds (25.6-37.1) 10/29/17 19:22 - Constitutional Appears: No Acute Distress, Unkempt, Older Than Stated Age - Head Exam Head Exam: NORMAL INSPECTION, NORMOCEPHALIC - Eye Exam Eye Exam: EOMI, Normal appearance Pupil Exam: NORMAL ACCOMODATION - ENT Exam ENT Exam: Mucous Membranes Moist, Normal External Ear Exam - Neck Exam Neck Exam: Full ROM - Respiratory Exam Respiratory Exam: Rhonchi, NORMAL BREATHING PATTERN. absent: Wheezes, Respiratory Distress - Cardiovascular Exam Cardiovascular Exam: REGULAR RHYTHM, +S1, +S2 - GI/Abdominal Exam GI & Abdominal Exam: Soft, Normal Bowel Sounds. absent: Tenderness - Exam Additional comments: Owens Cath in place - Extremities Exam Extremities Exam: Pedal Edema Additional comments: left big toe swelling , tenderness, some warth and erythema on the left foot - Back Exam Back Exam: absent: CVA tenderness (L), CVA tenderness (R) - Neurological Exam Neurological Exam: Alert, Awake Neuro motor strength exam: Left Upper Extremity: 4, Right Upper Extremity: 0, Left Lower Extremity: 3, Right Lower Extremity: 0 Additional comments: Dysarthria but comprehensible - Psychiatric Exam Psychiatric exam: Flat Affect - Skin Skin Exam: Dry, Normal Color, Warm Assessment and Plan - Assessment and Plan (Free Text) Assessment: 62 y/o male with Hx of CVA bed bound , with chronic indwelling Owens catheter, DM2, Chronic Pain on Opiates, Anxiety and multiple episodes of cellulitis who comes in with pain and swelling of his left big toe. Denies fever Doppler US of LE : neg DVT Foot Xray : no fracture 1) Left Hallux infection/ Paronychia /Cellulitis of left foot -Continue Vanco/zosyn IV - no fever, normal WBC ct -f/u cultures -Podiatry consulted -Pain control per scale (2) DM2 (diabetes mellitus, type 2) -Continue 10 U of L insulin daily -SSI/Accuchecks -DM2 diet 3. Chronic Pain , generalized on Oxycodone and prn Percocet at home decrease Dilaudid to 0.5 mg q 8 4. Anxiety/Depression - on Prozac, Klonopin 5. Hx of CVA with residual right hemiparesis, dysarthria cont Plavix, statin 6. UTI vs Colonization due to chronic indwelling catheter Urinalysis shows pyuri and leukoest Urine c/s Pt on IV abx DVT prophylaxis Status: Acute Lovenox
[2017-10-31] MEDS: oxyCODONE 40 mg ER Tab (oxyCONTIN) PO SCH ×2 (01:03→08:58)
[2017-10-31] MEDS: Piperacillin/Tazobact 3.375 GM in Sodium Chloride 0.9% 100 ML IVPB SCH ×2 (03:38→11:04)
[2017-10-31] MEDS: Insulin Lispro (humaLOG) 100 Units/ml Inj SC SCH ×2 (07:53→11:30)
--- NOTE | 2017-10-31 08:04 | CP.PCM.PN ---
Subjective - Date & Time of Evaluation Date of Evaluation: 10/31/17 Time of Evaluation: 08:04 - Subjective Subjective: Podiatry Progress Note - Dr. Messina 62 year old male patient PMHx including DM, HTN, Hypercholesterolemia, gastritis , anemia, anxiety, CVA seen and evaluated at bedside for left great toe infected ingrown nail s/p temporary total nail avulsion. Patient hemodynamically stable and NAD. Denies any acute events overnight. Reports continued chronic pain to RUE & RLE. Admits to mild soreness to left hallux. Denies N/V/F/D/C/SOB/calf pain. Objective - Vital Signs/Intake and Output Vital Signs (last 24 hours): Temp Pulse Resp BP Pulse Ox 97.6 F 76 19 107/66 94 L 10/31/17 00:00 10/31/17 00:00 10/31/17 00:00 10/31/17 00:00 10/31/17 00:00 Intake and Output: 10/31/17 10/31/17 06:59 18:59 Intake Total 590 Output Total 750 Balance -160 - Medications Medications: Current Medications Acetaminophen (Tylenol 325mg Tab) 650 mg PO Q6 PRN PRN Reason: Pain, Mild (1-3) Atorvastatin Calcium (Lipitor) 80 mg PO HS [facility] Last Admin: 10/30/17 21:45 Dose: 80 mg [facility] [place] Last Admin: 10/30/17 10:25 Dose: 1 mg Clonazepam (Klonopin) 2 mg PO HS [facility] Last Admin: 10/30/17 21:55 Dose: Not Given Clopidogrel Bisulfate (Plavix) 75 mg PO DAILY [facility] Last Admin: 10/30/17 10:19 Dose: 75 mg Enoxaparin Sodium (Lovenox) 40 mg SC DAILY [facility] PRN Reason: Protocol Last Admin: 10/30/17 10:19 Dose: 40 mg Fluoxetine HCl (Prozac) 20 mg PO HS [facility] Last Admin: 10/30/17 21:45 Dose: 20 mg Gabapentin (Neurontin) 800 mg PO Q8@0100,0900,1700 [facility] Last Admin: 10/31/17 01:03 Dose: 800 mg Hydromorphone HCl (Dilaudid) 0.5 mg IVP Q6 PRN PRN Reason: Pain, severe (8-10) Last Admin: 10/30/17 18:37 Dose: 0.5 mg Piperacillin Sod/Tazobactam (Sod 3.375 gm/ Sodium Chloride) 100 mls @ 100 mls/ hr IVPB Q6 [facility] PRN Reason: Protocol Last Admin: 10/31/17 03:38 Dose: Not Given Vancomycin HCl 1 gm/ Sodium (Chloride) 250 mls @ 166.667 mls/hr IVPB Q12@0100, 1300 [facility] PRN Reason: Protocol Last Admin: 10/31/17 01:19 Dose: 166.667 mls/hr Insulin Detemir (Levemir) 10 units SC DAILY [facility] Last Admin: 10/30/17 10:20 Dose: 10 units Insulin Human Lispro (Humalog) 0 units SC ACHS [facility] PRN Reason: Protocol Last Admin: 10/31/17 07:53 Dose: Not Given Lamotrigine (Lamictal) 50 mg PO Q12H [facility] Last Admin: 10/30/17 21:44 Dose: 50 mg Mupirocin (Bactroban Ointment) 1 applic TOP BID [facility] Last Admin: 10/30/17 19:05 Dose: Not Given Oxycodone HCl (Oxycontin Extended Release Tab) 80 mg PO Q8@0100,0900,1700 [facility] Last Admin: 10/31/17 01:03 Dose: 80 mg Polyethylene Glycol (Miralax) 17 gm PO DAILY [facility]N PRN Reason: Constipation Torsemide (Demadex) 10 mg PO DAILY [facility] Last Admin: 10/30/17 09:00 Dose: Not Given Trazodone HCl (Desyrel) 150 mg PO HS [facility] Last Admin: 10/30/17 21:55 Dose: Not Given - Labs Labs: 10/30/17 05:35 10/30/17 05:35 PT 11.5 Seconds (9.8-13.1) 10/29/17 19:22 INR 1.0 (0.9-1.2) 10/29/17 19:22 APTT 30.2 Seconds (25.6-37.1) 10/29/17 19:22 - Constitutional Appears: Well, Non-toxic, No Acute Distress - Extremities Exam Additional comments: Lower extremity focused exam: Vasc: DP pulses weakly palpable 1/4 b/l. PT pulses weakly palpable 1/4 b/l. Pulses are biphasic upon doppler examination. Skin temperature warm to warm from proximal to distal b/l. Mild increase in warmth noted to left hallux. Nonpitting edema noted to RLE. No edema noted to LLE. Neuro: Gross sensation diminished b/l. Ortho: Pain on palpation left hallucal nail bed. Avulsed nail 1 left foot. Derm: Area of hypertrophy, erythema and edema noted to left hallux with dried blood on nail bed s/p avulsion. - Neurological Exam Neurological Exam: Alert, Awake, Oriented x3 - Psychiatric Exam Psychiatric exam: Normal Affect, Normal Mood Assessment and Plan - Assessment and Plan (Free Text) Assessment: 62 year old male with left hallux paronychia with subungual hematoma s/p left hallux temporary nail avulsion Plan: Patient seen and evaluated at bedside Discussed with attending, Dr. Messina Afebrile Venous duplex-no DVT Left hallux flushed with normal saline and dressed with bactroban DSD Continue IV abx per medicine - Vancomycin, Zosyn Stable from podiatry standpoint Advised patient to follow up with Dr. Messina in office within 1 week of discharge. Patient to do QD soaks with application of bactroban DSD at home prior to 1st outpatient visit Podiatry will continue to follow patient while in house
[2017-10-31 08:56] VITALS: BP 113/68; PULSE 83; RESP 20; TEMP 97.8
[2017-10-31] MEDS: Insulin Detemir 100 Units/ml Inj SC SCH (09:00)
[2017-10-31] MEDS: Enoxaparin 40 mg Syringe SC SCH (09:01)
--- NOTE | 2017-10-31 13:39 | CP.PCM.DIS ---
Provider - Provider Date of Admission: 10/29/17 21:25 Attending physician: Kenton Sprague MD Primary care physician: Sindy Segal Consults: podiatry consult Time Spent in preparation of Discharge (in minutes): 20 Hospital Course - Lab Results Lab Results: Micro Results 10/30/17 12:40 Blood Blood Culture - Preliminary NO GROWTH AFTER 24 HOURS 10/30/17 12:50 Blood Blood Culture - Preliminary NO GROWTH AFTER 24 HOURS Most Recent Lab Values WBC 8.7 K/uL (4.8-10.8) 10/30/17 05:35 RBC 4.59 Mil/uL (4.40-5.90) 10/30/17 05:35 Hgb 13.5 g/dL (12.0-18.0) 10/30/17 05:35 Hct 42.0 % (35.0-51.0) 10/30/17 05:35 MCV 91.5 fl (80.0-94.0) 10/30/17 05:35 MCH 29.5 pg (27.0-31.0) 10/30/17 05:35 MCHC 32.2 g/dL (33.0-37.0) L 10/30/17 05:35 RDW 15.3 % (11.5-14.5) H 10/30/17 05:35 Plt Count 229 K/uL (130-400) 10/30/17 05:35 MPV 7.1 fl (7.2-11.7) L 10/30/17 05:35 Neut % (Auto) 46.6 % (50.0-75.0) L 10/30/17 05:35 Lymph % (Auto) 42.3 % (20.0-40.0) H 10/30/17 05:35 Mitchell % (Auto) 8.8 % (0.0-10.0) 10/30/17 05:35 Eos % (Auto) 1.7 % (0.0-4.0) 10/30/17 05:35 Baso % (Auto) 0.6 % (0.0-2.0) 10/30/17 05:35 Neut # 4.1 K/uL (1.8-7.0) 10/30/17 05:35 Lymph # 3.7 K/uL (1.0-4.3) 10/30/17 05:35 Mitchell # 0.8 K/uL (0.0-0.8) 10/30/17 05:35 Eos # 0.1 K/uL (0.0-0.7) 10/30/17 05:35 Baso # 0.0 K/uL (0.0-0.2) 10/30/17 05:35 ESR 19 mm/hr (0-20) 10/29/17 19:22 PT 11.5 Seconds (9.8-13.1) 10/29/17 19:22 INR 1.0 (0.9-1.2) 10/29/17 19:22 APTT 30.2 Seconds (25.6-37.1) 10/29/17 19:22 pO2 36 mm/Hg (30-55) 10/29/17 19:35 VBG pH 7.31 (7.32-7.43) L 10/29/17 19:35 VBG pCO2 50 mmHg (40-60) 10/29/17 19:35 VBG HCO3 22.7 mmol/L 10/29/17 19:35 VBG Total CO2 26.7 mmol/L (22-28) 10/29/17 19:35 VBG O2 Sat (Calc) 73.4 % (40-65) H 10/29/17 19:35 VBG Base Excess -1.7 mmol/L (0.0-2.0) L 10/29/17 19:35 VBG Potassium 3.5 mmol/L (3.6-5.2) L 10/29/17 19:35 Sodium 132.0 mmol/L (132-148) 10/29/17 19:35 Chloride 105.0 mmol/L (98-107) 10/29/17 19:35 Glucose 91 mg/dL (75-110) 10/29/17 19:35 Lactate 0.7 mmol/L (0.7-2.1) 10/29/17 19:35 FiO2 21.0 % 10/29/17 19:35 Sodium 141 mmol/l (132-148) 10/30/17 05:35 Potassium 3.7 MMOL/L (3.6-5.0) 10/30/17 05:35 Chloride 107 mmol/L (98-107) 10/30/17 05:35 Carbon Dioxide 23 mmol/L (22-30) 10/30/17 05:35 Anion Gap 15 (10-20) 10/30/17 05:35 BUN 17 mg/dl (9-20) 10/30/17 05:35 Creatinine 1.3 mg/dl (0.8-1.5) 10/30/17 05:35 Est GFR ( Amer) > 60 10/30/17 05:35 Est GFR (Non-Af Amer) 56 10/30/17 05:35 POC Glucose (mg/dL) 125 mg/dL (65-110) H 10/31/17 11:15 Random Glucose 123 mg/dL (75-110) H 10/30/17 05:35 Calcium 8.8 mg/dL (8.4-10.2) 10/30/17 05:35 Total Bilirubin 0.5 mg/dl (0.2-1.3) 10/29/17 19:22 AST 28 U/L (17-59) 10/29/17 19:22 ALT 24 U/L (21-72) 10/29/17 19:22 Alkaline Phosphatase 80 U/L (38-126) 10/29/17 19:22 NT-Pro-B Natriuret Pep 66.1 pg/ml (0-900) 10/29/17 19:22 Total Protein 8.2 G/DL (6.3-8.2) 10/29/17 19:22 Albumin 4.2 g/dL (3.5-5.0) 10/29/17 19:22 Globulin 3.9 gm/dL (2.2-3.9) 10/29/17 19:22 Albumin/Globulin Ratio 1.1 (1.0-2.1) 10/29/17 19:22 Venous Blood Potassium 3.5 mmol/L (3.6-5.2) L 10/29/17 19:35 Urine Color Yellow (YELLOW) 10/29/17 19:40 Urine Clarity Slighty-cloudy (Clear) 10/29/17 19:40 Urine pH 6.0 (5.0-8.0) 10/29/17 19:40 Ur Specific Reinbeck 1.017 (1.003-1.030) 10/29/17 19:40 Urine Protein 100 mg/dL (NEGATIVE) 10/29/17 19:40 Urine Glucose (UA) 150 mg/dL (Normal) 10/29/17 19:40 Urine Ketones Negative mg/dL (NEGATIVE) 10/29/17 19:40 Urine Blood Moderate (NEGATIVE) 10/29/17 19:40 Urine Nitrate Negative (NEGATIVE) 10/29/17 19:40 Urine Bilirubin Negative (NEGATIVE) 10/29/17 19:40 Urine Urobilinogen 0.2-1.0 mg/dL (0.2-1.0) 10/29/17 19:40 Ur Leukocyte Esterase Large John/uL (Negative) 10/29/17 19:40 Urine RBC (Auto) 12 /hpf (0-3) H 10/29/17 19:40 Urine Microscopic WBC 40 /hpf (0-5) H 10/29/17 19:40 Ur Squamous Epith Cells < 1 /hpf (0-5) 10/29/17 19:40 Urine Bacteria Rare (<OCC) 10/29/17 19:40 Hyaline Casts 0-2 /hpf (0-2) 10/29/17 19:40 Urine Yeast (Budding) Few /hpf (NEGATIVE) H 10/29/17 19:40 Blood Type A POSITIVE 10/30/17 12:50 Blood Type Confirm A POSITIVE 10/30/17 14:11 Antibody Screen Negative 10/30/17 12:50 BBK History Checked No verified bt 10/30/17 12:50 - Hospital Course Hospital Course: 62 y/o male with Hx of CVA bed bound , with chronic indwelling Owens catheter, DM2, Chronic Pain on Opiates, Anxiety and multiple episodes of cellulitis came in with pain and swelling of his left big toe. Patient stated that his toe got red and swollen after he had his toenails clipped . He was admitted in med/surg with diagnosis of left hallux infection, paranochia and cellulitis. He was started on IV Vanco and Zosyn and podiatry was consulted . As per podiatry patient had left hallux paranochia and subungular hematoma. She underwent the excision of the nail under sterile condition and under local anesthesia by podiatry. He received 2 days of IV antibiotics. Clinically patient improved, remained hemodynamically stable, afebrile with normal WBc count.Podiatry continued to follow up patient while in house with local dressing with bactroban topical and cleared patient for discharge. Will d/c patient on PO Augmentin for 7 day sand Bactroban topical Can soak foot with warm water with epson salt.Will d/c patient home Follow up with PMD and mascara molder in 1 week 1.Left Hallux Paronychia /Cellulitis with subungal hematoma s/p nail removal podiatry consulted Received vanco and Zosyn Iv for 2 days Remained afebrile with normal WBC continue bactroban topical dressing d/c on Augmentin Po for 7 days Follow up with his mascara molder upon discharge 2.DM2 (diabetes mellitus, type 2) controlled Continue 10 U of L insulin daily SSI/Accuchecks DM2 diet 3. Chronic Pain , generalized on Oxycodone and prn Percocet at home decrease Dilaudid to 0.5 mg q 8 4. Anxiety/Depression on Prozac, Klonopin 5. Hx of CVA with residual right hemiparesis, dysarthria cont Plavix, statin 6. UTI ruled out 7. DVT prophylaxis on Lovenox Discharge Exam - Head Exam Head Exam: NORMAL INSPECTION, NORMOCEPHALIC - Eye Exam Eye Exam: EOMI, PERRL Pupil Exam: NORMAL ACCOMODATION - ENT Exam ENT Exam: Mucous Membranes Moist, Normal Exam - Neck Exam Neck exam: Full Rom, Normal Inspection - Respiratory Exam Respiratory Exam: Clear to PA & Lateral, NORMAL BREATHING PATTERN. absent: Rhonchi, Wheezes - Cardiovascular Exam Cardiovascular Exam: REGULAR RHYTHM, RRR, +S1, +S2. absent: JVD - GI/Abdominal Exam GI & Abdominal Exam: Normal Bowel Sounds, Soft. absent: Distended, Guarding, Rebound, Tenderness - Rectal Exam Rectal Exam: Deferred - Extremities Exam Extremities exam: normal inspection, pedal pulses present - Back Exam Back exam: NORMAL INSPECTION - Neurological Exam Neurological exam: Alert Additional comments: right hemiparesis dysarthria - Psychiatric Exam Psychiatric exam: Normal Affect - Skin Skin Exam: Dry, Normal Color, Warm Discharge Plan - Discharge Medications Prescriptions: Amoxicillin/Clavulanate [Augmentin 875 MG-125 MG] 1 tab PO BID #14 tab - Follow Up Plan Condition: IMPROVED Disposition: HOME/ ROUTINE Patient education suggested?: Yes Instructions: Cellulitis (DC) Additional Instructions: follow up with mascara molder in 1 week. Referrals: Keven Messina DPM [Staff Provider] - Sindy Lopez RN, METALLURGICAL SPECIALIST [Family Provider] -
[2017-10-31] MEDS ORDERED: Oxycodone/Acetaminophen 5/325 mg Tab PO ONE (15:09)
[2017-10-31] MEDS ORDERED: Oxycodone/Acetaminophen 5/325 mg Tab ONE (15:14)
[2017-11-01 19:07] VITALS: O2SAT 98
== END 2017-10-31 15:25 | disposition home or self-care (01) | DRG 603 ==
LOC: H.ER 17:13 → H.ERHOLD 21:25 → H.MEDSURG1 23:38
PROVIDERS: ADMIT Internal Medicine; ATTEND Internal Medicine
PROC: 0HTRXZZ Resection of Toe Nail, External Approach (ICD-10-PCS; principal; 2017-10-29)
PROC: 3E0234Z Introduction of Serum, Toxoid and Vaccine into Muscle, Percutaneous Approach (ICD-10-PCS; 2017-10-30)
DX: L03.032 Cellulitis of left toe (principal); I69.351 Hemiplegia and hemiparesis following cerebral infarction affecting right dominant side; E11.9 Type 2 diabetes mellitus without complications; E78.00 Pure hypercholesterolemia, unspecified; E78.5 Hyperlipidemia, unspecified; D64.9 Anemia, unspecified; F32.9 Major depressive disorder, single episode, unspecified; F41.9 Anxiety disorder, unspecified; I10 Essential (primary) hypertension; K29.70 Gastritis, unspecified, without bleeding; L60.0 Ingrowing nail; G89.29 Other chronic pain; S91.202A Unspecified open wound of left great toe with damage to nail, initial encounter; X58.XXXA Exposure to other specified factors, initial encounter; Z74.01 Bed confinement status; I69.322 Dysarthria following cerebral infarction; Z23 Encounter for immunization

== ENCOUNTER 2018-03-01 12:33 | Emergency (ER) | payer MEDICARE, MEDICAID ==
[2018-03-01 12:34] VITALS: BMI 25.8
[2018-03-01 12:41] VITALS: TEMP 97.7; O2SAT 98
--- NOTE | 2018-03-01 13:07 | ED PDOC ---
HPI: General Adult Time Seen by Provider: 03/01/18 12:44 Chief Complaint (Nursing): Palpitations Chief Complaint (Provider): L sided pain History Per: Patient, Family History/Exam Limitations: no limitations Additional Complaint(s): Pt presents with multiple complaints. Reports R sided pain that is chronic secondary to CVA that Percocet and Oxycontin did not relieve at home. Also c/o palpitations X 1 day, no CP, no SOB. Also reports "I'm retaining water". Denies fever, nausea, vomiting, abdominal pain, ELDER. 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) , Depression, Gastritis, HTN, Hypercholesterolemia, Peripheral Edema, Pneumonia Denies: HIV, Chronic Kidney Disease - Family History Family History: States: Unknown Family Hx - Immunization History Hx Tetanus Toxoid Vaccination: No Hx Influenza Vaccination: No Hx Pneumococcal Vaccination: No - Home Medications Home Medications: Ambulatory Orders Medication Instructions Recorded Clonazepam [Klonopin] 2 mg PO HS 05/09/17 Polyethylene Glycol 3350 [Miralax] 17 gm PO DAILY PRN 05/09/17 clonazePAM [Klonopin] 1 mg PO QAM 05/09/17 Naloxegol Oxalate [Movantik] 25 mg PO DAILY #60 05/13/17 Clopidogrel [Plavix] 75 mg PO DAILY 10/29/17 FLUoxetine [Prozac] 20 mg PO HS 10/29/17 Gabapentin [Neurontin] 800 mg PO Q8H 10/29/17 Insulin Aspart, Recombinant 4 - 16 unit SC ACTID 10/29/17 [Novolog] Insulin Degludec [Tresiba 30 unit SC DAILY 10/29/17 Flextouch U-100] Oxycodone HCl [Oxycontin] 80 mg PO Q8H 10/29/17 Oxycodone HCl/Acetaminophen 1 tab PO Q4H PRN 10/29/17 [Percocet 10-325 mg Tablet] Rosuvastatin Calcium [Crestor] 40 mg PO HS 10/29/17 Torsemide [Demadex] 10 mg PO DAILY 10/29/17 Trazodone HCl 150 mg PO HS 10/29/17 lamoTRIgine [Lamictal] 50 mg PO Q12H 10/29/17 Ciprofloxacin [Cipro] 500 mg PO Q12 #10 tab 03/01/18 Pantoprazole [Protonix EC Tab] 40 mg PO DAILY 03/01/18 Rivaroxaban [Xarelto] 15 mg PO Q12 #42 tab 03/01/18 - Allergies Allergies/Adverse Reactions: Allergies Allergy/AdvReac Type Severity Reaction Status Date / Time No Known Allergies Allergy Verified 05/09/17 17:30 Review of Systems Constitutional: Negative for: Fever, Chills Cardiovascular: Positive for: Palpitations. Negative for: Chest Pain Respiratory: Negative for: Cough, Shortness of Breath Gastrointestinal: Negative for: Nausea, Vomiting, Abdominal Pain, Diarrhea Genitourinary Male: Negative for: Dysuria, Hematuria Musculoskeletal: Positive for: Arm Pain, Leg Pain Skin: Negative for: Rash, Lesions Neurological: Negative for: Confusion, Seizures, Altered Mental Status, Headache Physical Exam - Reviewed Nursing Documentation Reviewed: Yes Vital Signs Reviewed: Yes - Physical Exam Appears: Positive for: Well, No Acute Distress Head Exam: Positive for: ATRAUMATIC, NORMAL INSPECTION Skin: Positive for: Normal Color, Warm, Dry Eye Exam: Positive for: Normal appearance Cardiovascular/Chest: Positive for: Regular Rate, Rhythm Respiratory: Positive for: Normal Breath Sounds. Negative for: Rales, Rhonchi, Wheezing Gastrointestinal/Abdominal: Positive for: Normal Exam Extremity: Positive for: Tenderness, Pedal Edema, Capillary Refill (<2 sec), Swelling (R>L). Negative for: Deformity Neurologic/Psych: Positive for: Alert, Oriented - Laboratory Results Result Diagrams: 03/01/18 13:20 03/01/18 13:20 - ECG O2 Sat by Pulse Oximetry: 98 Medical Decision Making Medical Decision Makin yo male with chronic R sided body pain, palpitations and leg swelling. - labs - EKG - CXR - Doppler ultrasound - Morphine Accession No. : [id number] Patient Name / ID : SANTI CABRALES / [id number] Exam Date : 03/01/2018 13:14:21 ( Approved ) Study Comment : Sex / Age : M / 62Y Creator : Deng Ross MD Dictator : Deng Ross MD Value Engineer : Automatic Seamer : Deng Ross MD Approver2 : Report Date : 03/01/2018 14:09:18 My Comment : HISTORY: Palpitations COMPARISON: Chest radiograph dated 10/29/2017. FINDINGS: LUNGS: No active pulmonary disease. PLEURA: No significant pleural effusion identified, no pneumothorax apparent. CARDIOVASCULAR: Cardiomediastinal silhouette stably prominent. OSSEOUS STRUCTURES: Anterior cervical fixation plate redemonstrated. Unchanged. VISUALIZED UPPER ABDOMEN: Normal. OTHER FINDINGS: None. IMPRESSION: No active disease. Accession No. : [id number] Patient Name / ID : SANTI CABRALES / [id number] Exam Date : 03/01/2018 15:22:14 ( Approved ) Study Comment : Sex / Age : M / 62Y Creator : Deng Ross MD Dictator : Deng Ross MD Value Engineer : Automatic Seamer : Deng Ross MD Approver2 : Report Date : 03/01/2018 15:06:01 My Comment : PROCEDURE: Bilateral lower extremity venous duplex Doppler. HISTORY: Leg swelling COMPARISON: Lower extremity ultrasound dated 10/29/2017. TECHNIQUE: Bilateral common femoral, superficial femoral, popliteal and posterior tibial veins were evaluated. Flow was assessed with color Doppler, compressibility, assessment of phasic flow and augmentation response. FINDINGS: COMMON FEMORAL VEIN: Right CFV: Unremarkable. Left CFV: Unremarkable. SUPERFICIAL FEMORAL VEIN: Right SFV: Proximal portion unremarkable. Midportion incompletely compressible with intraluminal echogenic material and partial Doppler flow. Distal portion not compressible with absence of Doppler flow. Left SFV: Unremarkable. POPLITEAL VEIN: Right Popliteal: Unremarkable. Left Popliteal: Unremarkable. POSTERIOR TIBIAL VEIN: Right PTV: Not visualized due to extensive subcutaneous edema. Left PTV: Unremarkable. OTHER FINDINGS: None. IMPRESSION: Occlusive deep venous thrombosis of the distal femoral vein. Accession No. : [id number] Patient Name / ID : SANTI CABRALES / [id number] Exam Date : 03/01/2018 15:29:08 ( Approved ) Study Comment : Sex / Age : M / 62Y Creator : Deng Ross MD Dictator : Deng Ross MD Value Engineer : Automatic Seamer : Deng Ross MD Approver2 : Report Date : 03/01/2018 16:01:09 My Comment : This report is currently processing and HAS NOT BEEN OFFICIALLY SIGNED BY THE PHYSICIAN - ESTIMATED TIME OF APPROVAL IS 03/01/2018 16:07. PROCEDURE: CT Chest with contrast (Pulmonary Angiogram) HISTORY: DVT, palpitations COMPARISON: CT chest dated 01/18/2008. TECHNIQUE: Axial computed tomography images were obtained of the chest in the pulmonary arterial phase of enhancement. Coronal and sagittal reformatted images were created and reviewed. Intravenous contrast dose: 99 mL Visipaque 320 Radiation dose: Total exam DLP = 415.3 mGy-cm. This CT exam was performed using one or more of the following dose reduction techniques: Automated exposure control, adjustment of the mA and/or kV according to patient size, and/or use of iterative reconstruction technique. FINDINGS: PULMONARY ARTERIES: Unremarkable. No pulmonary embolism. AORTA: No acute findings. No thoracic aortic aneurysm. LUNGS: Bibasilar atelectasis. No nodule, mass or pulmonary consolidation. PLEURAL SPACES: Unremarkable. No effusion or pneumothorax. HEART: Unremarkable. No cardiomegaly. No significant pericardial effusion. LYMPH NODES: No lymphadenopathy. BONES, CHEST WALL: Anterior cervical fixation hardware. No fracture or destructive lesion OTHER FINDINGS: Unremarkable. IMPRESSION: Unremarkable CT pulmonary angiogram. No pulmonary embolus. Disposition - Clinical Impression Clinical Impression: UTI (urinary tract infection), DVT (deep venous thrombosis), Kelly infection - Patient ED Disposition Is Patient to be Admitted: Yes - Disposition Disposition Time: 16:20 Condition: STABLE - Pt Status Changed To: Hospital Disposition Of: Observation - POA Present On Arrival: Deep Vein Thrombosis / PE
[2018-03-01 13:29] LABS: BASO % 0.4 % (0.0-2.0); EOS # 0.2 K/uL (0.0-0.7); EOS % 2.8 % (0.0-4.0); HEMOGLOBIN 13.2 g/dL (12.0-18.0); LYMPH # 3.3 K/uL (1.0-4.3); LYMPH % 43.2 % (20.0-40.0); MEAN CELL VOLUME 91.9 fl (80.0-94.0); MEAN CORPUSCULAR HEMOGLOBIN 30.8 pg (27.0-31.0); MEAN CORPUSCULAR HGB CONC 33.6 g/dL (33.0-37.0); MEAN PLATELET VOLUME 7.6 fl (7.2-11.7); MONO # 0.7 K/uL (0.0-0.8); MONO % 8.7 % (0.0-10.0); NEUT # 3.5 K/uL (1.8-7.0); NEUT % 44.9 % (50.0-75.0); NRBC % 0.1 % (0.0-0.0); RBC 4.28 Mil/uL (4.40-5.90); RED CELL DISTRIBUTION WIDTH 13.8 % (11.5-14.5); WHITE BLOOD COUNT 7.7 K/uL (4.8-10.8)
[2018-03-01 13:33] LABS: GFR AFRICAN-AMERICAN > 60; GFR NON-AFRICAN AMERICAN > 60
[2018-03-01 13:45] LABS: B-TYPE NATRIURETIC PEPTIDE 143 pg/ml (0-900)
[2018-03-01 13:49] LABS: PARTIAL THROMBOPLASTIN TIME 31.6 Seconds (25.6-37.1); PROTHROMBIN TIME 11.2 Seconds (9.8-13.1)
[2018-03-01 13:50] LABS: ALT/SGPT 42 U/L (21-72); AST/SGOT 32 U/L (17-59); BLOOD UREA NITROGEN 32 mg/dl (9-20)
[2018-03-01 14:11] LABS: URINE BILIRUBIN NEGATIVE (NEGATIVE); URINE CLARITY CLOUDY (Clear); URINE COLOR YELLOW (YELLOW); URINE GLUCOSE (UA) NEG (Normal); URINE LEUKOCYTE ESTERASE LARGE Leu/uL (Negative); URINE PROTEIN 30 mg/dL (NEGATIVE); URINE UROBILINOGEN 0.2-1.0 mg/dL (0.2-1.0)
--- NOTE | 2018-03-01 14:11 | RAD ---
HISTORY: Palpitations COMPARISON: Chest radiograph dated 10/29/2017. FINDINGS: LUNGS: No active pulmonary disease. PLEURA: No significant pleural effusion identified, no pneumothorax apparent. CARDIOVASCULAR: Cardiomediastinal silhouette stably prominent. OSSEOUS STRUCTURES: Anterior cervical fixation plate redemonstrated. Unchanged. VISUALIZED UPPER ABDOMEN: Normal. OTHER FINDINGS: None. IMPRESSION: No active disease.
[2018-03-01 14:13] LABS: URINE BLOOD TRACE-INTACT (NEGATIVE)
[2018-03-01] MEDS ORDERED: Sodium Chloride 0.9% 500 ML IV STA (14:52)
[2018-03-01] MEDS ORDERED: Enoxaparin 80 mg Syringe SC ONE (15:00)
--- NOTE | 2018-03-01 15:07 | US ---
PROCEDURE: Bilateral lower extremity venous duplex Doppler. HISTORY: Leg swelling COMPARISON: Lower extremity ultrasound dated 10/29/2017. TECHNIQUE: Bilateral common femoral, superficial femoral, popliteal and posterior tibial veins were evaluated. Flow was assessed with color Doppler, compressibility, assessment of phasic flow and augmentation response. FINDINGS: COMMON FEMORAL VEIN: Right CFV: Unremarkable. Left CFV: Unremarkable. SUPERFICIAL FEMORAL VEIN: Right SFV: Proximal portion unremarkable. Midportion incompletely compressible with intraluminal echogenic material and partial Doppler flow. Distal portion not compressible with absence of Doppler flow. Left SFV: Unremarkable. POPLITEAL VEIN: Right Popliteal: Unremarkable. Left Popliteal: Unremarkable. POSTERIOR TIBIAL VEIN: Right PTV: Not visualized due to extensive subcutaneous edema. Left PTV: Unremarkable. OTHER FINDINGS: None. IMPRESSION: Occlusive deep venous thrombosis of the distal femoral vein. Dr. Rapp informed of the findings by the tissue technologist immediately after conclusion of the procedure.
[2018-03-01] MEDS ORDERED: Sodium Chloride 0.9% 100 ML ONE (15:29)
[2018-03-01] MEDS ORDERED: Iodixanol 320 MG/ML 100 ML BOTTLE IV ONE (15:29)
--- NOTE | 2018-03-01 16:02 | CT ---
PROCEDURE: CT Chest with contrast (Pulmonary Angiogram) HISTORY: DVT, palpitations COMPARISON: CT chest dated 01/18/2008. TECHNIQUE: Axial computed tomography images were obtained of the chest in the pulmonary arterial phase of enhancement. Coronal and sagittal reformatted images were created and reviewed. Intravenous contrast dose: 99 mL Visipaque 320 Radiation dose: Total exam DLP = 415.3 mGy-cm. This CT exam was performed using one or more of the following dose reduction techniques: Automated exposure control, adjustment of the mA and/or kV according to patient size, and/or use of iterative reconstruction technique. FINDINGS: PULMONARY ARTERIES: Unremarkable. No pulmonary embolism. AORTA: No acute findings. No thoracic aortic aneurysm. LUNGS: Bibasilar atelectasis. No nodule, mass or pulmonary consolidation. PLEURAL SPACES: Unremarkable. No effusion or pneumothorax. HEART: Unremarkable. No cardiomegaly. No significant pericardial effusion. LYMPH NODES: No lymphadenopathy. BONES, CHEST WALL: Anterior cervical fixation hardware. No fracture or destructive lesion OTHER FINDINGS: Unremarkable. IMPRESSION: Unremarkable CT pulmonary angiogram. No pulmonary embolus.
[2018-03-01] MEDS ORDERED: Fluconazole 150 MG TAB PO STA (16:10)
[2018-03-01] MEDS ORDERED: cefTRIAXone (Rocephin) 1 gm Inj ONE (16:28)
[2018-03-01 16:42] VITALS: BP 102/68; PULSE 68; RESP 19
--- NOTE | 2018-03-01 17:02 | CP.PCM.HP ---
History of Present Illness - History of Present Illness History of Present Illness: CC: pain HPI: This is a 62 y/o male with HTN, HLD, DM2, prior CVA with R sided hemiparesis and multiple other conditions presented to the ED with multiple complaints including uncontrolled pain despite extremely high doses of oxycontin and percocet at home. Patient also states "I am retaining water." Patient accompanied by . Pt appeared to have lower extremity edema which was moderate, mildly pitting, not associated with any shortness of breath, nor rales. Dopplers were found to be + for DVT. CTA neg for PE. HD stable, no other complaints. Pt also found to have UTI with chronic indwelling cath. Pt is stable to be discharged home with Xarelto and Cipro for 5 days, and for close outpatient follow up with his physician, Dr. Berger. To note: it was explained in great detail to patient and patient's that the patient does not require an inpatient nor overnight observation stay for DVT (distal femoral), as this may be addressed as an outpatient as per guidelines. Xarelto and medications were intentionally sent to [facility] in [place] ([facility]) as it is open 24 hours. Patient expressed understanding and agreed and also stated that he did not wish to stay, even if he were asked to. Pt is HD stable, no PE, saturating 100% on RA, no rales or signs of overload, only some mild lower extremity edema which the patient is receiving diuresis. Patient was instructed to follow up closely with PCP, Dr. Berger. ROS: per HPI all other systems reviewed and negative. MHx: DM2, HTN, HLD, CVA with R sided hemiparesis, anxiety, anemia; mulitiple prior admissions for cellulitis SHx: R foot surgeries (multiple), appx, ear surgery Allergies: NKDA Medications: as per med rec Family Hx: no relevant findings Social Hx: Lives with family, no EtOH, no tobacco Surrogate: , info on chart Present on Admission - Present on Admission Any Indicators Present on Admission: No Past Patient History - Tetanus Immunizations Tetanus Immunization: Unknown - Past Medical History & Family History Past Medical History?: Yes - Past Social History Smoking Status: Never Smoked - CARDIAC Hx Hypercholesterolemia: Yes Hx Hypertension: Yes Hx Peripheral Edema: Yes - PULMONARY Hx Pneumonia: Yes - NEUROLOGICAL Hx Neurological Disorder: Yes HX Cerebrovascular Accident: Yes (9yrs ago) - HEENT Hx HEENT Problems: Yes Other/Comment: eyeglasses - RENAL Hx Chronic Kidney Disease: No - ENDOCRINE/METABOLIC Hx Endocrine Disorders: Yes Hx Diabetes Mellitus Type 2: Yes - HEMATOLOGICAL/ONCOLOGICAL Hx Anemia: Yes Hx Human Immunodeficiency Virus (HIV): No - INTEGUMENTARY Hx Dermatological Problems: No - MUSCULOSKELETAL/RHEUMATOLOGICAL Hx Musculoskeletal Disorders: No Hx Falls: No - GASTROINTESTINAL Hx Gastritis: Yes - GENITOURINARY/GYNECOLOGICAL Hx Genitourinary Disorders: Yes Hx Incontinence: Yes Hx Prostate Problems: Yes Hx Urinary Tract Infection: Yes (urinary retention) - PSYCHIATRIC Hx Anxiety: Yes Hx Depression: Yes - SURGICAL HISTORY Hx Surgeries: Yes Other/Comment: Neck Sx, Right hand Sx, Right leg Sx, cystoscopy , R ankle surgery - ANESTHESIA Hx Anesthesia: Yes Hx Anesthesia Reactions: No Hx Malignant Hyperthermia: No Meds Home Medications: Home Medication List Medication Instructions Recorded Confirmed Type Ciprofloxacin [Cipro] 500 mg PO Q12 #10 tab 03/01/18 Rx Rivaroxaban [Xarelto] 15 mg PO Q12 #42 tab 03/01/18 Rx Allergies/Adverse Reactions: Allergies Allergy/AdvReac Type Severity Reaction Status Date / Time No Known Allergies Allergy Verified 05/09/17 17:30 Physical Exam - Constitutional Appears: Non-toxic, No Acute Distress - Head Exam Head Exam: ATRAUMATIC, NORMOCEPHALIC - Eye Exam Eye Exam: EOMI, Normal appearance, PERRL - ENT Exam ENT Exam: Mucous Membranes Moist, Normal Oropharynx - Neck Exam Neck exam: Positive for: Normal Inspection. Negative for: Tenderness - Respiratory Exam Respiratory Exam: Clear to Auscultation Bilateral, NORMAL BREATHING PATTERN. absent: Rales, Rhonchi, Wheezes - Cardiovascular Exam Cardiovascular Exam: RRR, +S1, +S2 - GI/Abdominal Exam GI & Abdominal Exam: Normal Bowel Sounds, Soft. absent: Mass, Organomegaly, Tenderness - Extremities Exam Extremities exam: Positive for: normal capillary refill, pedal edema, pedal pulses present - Back Exam Back exam: absent: CVA tenderness (L), CVA tenderness (R) - Neurological Exam Neurological exam: Alert, Oriented x3 - Psychiatric Exam Psychiatric exam: Normal Affect, Normal Mood - Skin Skin Exam: Dry, Warm Results - Vital Signs Recent Vital Signs: Last Vital Signs Temp 97.7 F 03/01/18 12:37 Pulse 68 03/01/18 16:41 Resp 19 03/01/18 16:41 BP 102/68 03/01/18 16:41 Pulse Ox 98 03/01/18 16:41 - Labs Result Diagrams: 03/01/18 13:20 03/01/18 13:20 Labs: Laboratory Results - last 24 hr 03/01/18 03/01/18 03/01/18 12:46 13:14 13:20 WBC RBC Hgb Hct MCV MCH MCHC RDW Plt Count MPV Neut % (Auto) Lymph % (Auto) [place] % (Auto) Eos % (Auto) Baso % (Auto) Neut # (Auto) Lymph # (Auto) [place] # (Auto) Eos # (Auto) Baso # (Auto) PT INR APTT D-Dimer, Quantitative Sodium 137 Potassium 5.0 Chloride 97 L Carbon Dioxide 29 Anion Gap 16 BUN 32 H Creatinine 1.0 Est GFR ( Amer) > 60 Est GFR (Non-Af Amer) > 60 POC Glucose (mg/dL) 286 H Random Glucose 286 H Calcium 9.0 Total Bilirubin 0.5 AST 32 ALT 42 Alkaline Phosphatase 79 Troponin I < 0.0120 NT-Pro-B Natriuret Pep 143 Total Protein 8.0 Albumin 4.0 Globulin 4.0 H Albumin/Globulin Ratio 1.0 Urine Color Yellow Urine Clarity Cloudy Urine pH 5.0 Ur Specific [place] 1.029 Urine Protein 30 Urine Glucose (UA) Neg Urine Ketones Negative Urine Blood Trace-intact Urine Nitrate Negative Urine Bilirubin Negative Urine Urobilinogen 0.2-1.0 Ur Leukocyte Esterase Large Urine RBC (Auto) 125 H Urine Microscopic WBC 180 H Ur Yeast w Hyphae Mod H Urine Yeast (Budding) Mod H 03/01/18 03/01/18 13:20 13:20 WBC 7.7 RBC 4.28 L Hgb 13.2 Hct 39.4 MCV 91.9 MCH 30.8 MCHC 33.6 RDW 13.8 Plt Count 228 MPV 7.6 Neut % (Auto) 44.9 L Lymph % (Auto) 43.2 H [place] % (Auto) 8.7 Eos % (Auto) 2.8 Baso % (Auto) 0.4 Neut # (Auto) 3.5 Lymph # (Auto) 3.3 [place] # (Auto) 0.7 Eos # (Auto) 0.2 Baso # (Auto) 0.0 PT 11.2 INR 1.0 APTT 31.6 D-Dimer, Quantitative 240 H Sodium Potassium Chloride Carbon Dioxide Anion Gap BUN Creatinine Est GFR ( Amer) Est GFR (Non-Af Amer) POC Glucose (mg/dL) Random Glucose Calcium Total Bilirubin AST ALT Alkaline Phosphatase Troponin I NT-Pro-B Natriuret Pep Total Protein Albumin Globulin Albumin/Globulin Ratio Urine Color Urine Clarity Urine pH Ur Specific [place] Urine Protein Urine Glucose (UA) Urine Ketones Urine Blood Urine Nitrate Urine Bilirubin Urine Urobilinogen Ur Leukocyte Esterase Urine RBC (Auto) Urine Microscopic WBC Ur Yeast w Hyphae Urine Yeast (Budding) Assessment & Plan - Assessment and Plan (Free Text) Plan: Distal Femoral DVT HTN Prior CVA DM2 62 y/o male with HTN, HLD, DM2, prior CVA with R sided hemiparesis and multiple other conditions presented to the ED with multiple complaints including uncontrolled pain despite extremely high doses of oxycontin and percocet at home. Patient also states "I am retaining water." Patient accompanied by . Pt appeared to have lower extremity edema which was moderate, mildly pitting, not associated with any shortness of breath, nor rales. Dopplers were found to be + for DVT. CTA neg for PE. HD stable, no other complaints. Pt also found to have UTI with chronic indwelling cath. Pt is stable to be discharged home with Xarelto and Cipro for 5 days, and for close outpatient follow up with his physician, Dr. Berger. To note: it was explained in great detail to patient and patient's that the patient does not require an inpatient nor overnight observation stay for DVT (distal femoral), as this may be addressed as an outpatient as per guidelines. Xarelto and medications were intentionally sent to [facility] in [place] ( and ) as it is open 24 hours. Patient expressed understanding and agreed and also stated that he did not wish to stay, even if he were asked to. Pt is HD stable, no PE, saturating 100% on RA, no rales or signs of overload, only some mild lower extremity edema which the patient is receiving diuresis. Patient was instructed to follow up closely with PCP, Dr. Berger.
--- NOTE | 2018-03-02 10:25 | CARD ---
APPROVED REPORT EKG Measurement Heart [id number] <Conclusion> Sinus bradycardia Otherwise normal ECG
== END 2018-03-01 20:18 | disposition home or self-care (01) ==
LOC: H.ER 12:33 → H.ERHOLD 16:20 → UNDOADMOB 16:20 → UNDODISOB 20:18
DX: M79.605 Pain in left leg (principal); I69.351 Hemiplegia and hemiparesis following cerebral infarction affecting right dominant side; E11.9 Type 2 diabetes mellitus without complications; E78.00 Pure hypercholesterolemia, unspecified; E78.5 Hyperlipidemia, unspecified; G89.29 Other chronic pain; I10 Essential (primary) hypertension; N39.0 Urinary tract infection, site not specified; Z79.01 Long term (current) use of anticoagulants; Z79.02 Long term (current) use of antithrombotics/antiplatelets; Z79.4 Long term (current) use of insulin; Z87.01 Personal history of pneumonia (recurrent); D64.9 Anemia, unspecified; F32.9 Major depressive disorder, single episode, unspecified; F41.9 Anxiety disorder, unspecified; R33.9 Retention of urine, unspecified; R60.0 Localized edema; Z79.899 Other long term (current) drug therapy; R00.2 Palpitations
CPT/HCPCS: 71045; 71275; 80053; 81003; 82948; 83880; 84484; 85025; 85378; 85610; 85730; 93005; 93970; 96372; 96374; 96375; 96376; 99284; J0696; J1650; J2270; J7040; Q9967

== ENCOUNTER 2018-05-04 19:31 | Observation (INO) | payer MEDICARE, MEDICAID ==
[2018-05-04 19:31] VITALS: BMI 25.8
[2018-05-04] MEDS ORDERED: Morphine 4 MG/ML VIAL IVP STA ×2 (20:09→23:28)
[2018-05-04] MEDS ORDERED: Morphine 4 MG/ML VIAL ONE ×2 (20:56→23:56)
--- NOTE | 2018-05-04 21:15 | ED PDOC ---
HPI: Abdomen Time Seen by Provider: 05/04/18 19:48 Chief Complaint (Nursing): Abdominal Pain Chief Complaint (Provider): Abdominal Pain History Per: Patient History/Exam Limitations: no limitations Onset/Duration Of Symptoms: Days (x5) Current Symptoms Are (Timing): Still Present Quality Of Discomfort: "Pain" Associated Symptoms: Nausea, Constipation. denies: Vomiting Additional Complaint(s): 62 year old male with a history of HTN, hypercholesterolemia and CVA presents to the ED with increasing abdominal pain and distension onset 5 days ago. Patient believes discomfort is due to constipation. He reports he took stool softeners, laxatives, and suppositories with no relief. Patient is also complaining of severe, chronic right arm and right leg pain due to previous strokes. He is on chronic pain medications but reports pain is worse. Patient has nausea but denies vomiting, fever, or any other medical complaints. PMD: Dr. Berger Past Medical History Reviewed: Historical Data, Nursing Documentation, Vital Signs Vital Signs: Last Vital Signs Temp 98.3 F 05/05/18 07:54 Pulse 64 05/05/18 07:54 Resp 18 05/05/18 07:54 BP 134/78 05/05/18 07:54 Pulse Ox 97 05/05/18 07:54 - Medical History PMH: Anemia, Anxiety, CVA (with left lower and right upper and lower paralysis) , Depression, Gastritis, HTN, Hypercholesterolemia, Peripheral Edema, Pneumonia Denies: HIV, Chronic Kidney Disease - Surgical History Surgical History: No Surg Hx - Family History Family History: States: Unknown Family Hx - Social History Current smoker - smoking cessation education provided: No Ex-Smoker (has not smoked in the last 12 months): No Alcohol: None Drugs: Denies - Immunization History Hx Tetanus Toxoid Vaccination: No Hx Influenza Vaccination: No Hx Pneumococcal Vaccination: No - Home Medications Home Medications: Ambulatory Orders Medication Instructions Recorded Clonazepam [Klonopin] 2 mg PO HS 05/09/17 Polyethylene Glycol 3350 [Miralax] 17 gm PO DAILY PRN 05/09/17 clonazePAM [Klonopin] 1 mg PO QAM 05/09/17 Naloxegol Oxalate [Movantik] 25 mg PO DAILY #60 05/13/17 Clopidogrel [Plavix] 75 mg PO DAILY 10/29/17 FLUoxetine [Prozac] 20 mg PO DAILY 10/29/17 Gabapentin [Neurontin] 800 mg PO Q8H 10/29/17 Insulin Aspart, Recombinant 4 - 16 unit SC PRN PRN 10/29/17 [Novolog] Insulin Degludec [Tresiba 30 unit SC DAILY 10/29/17 Flextouch U-100] Oxycodone HCl [Oxycontin] 80 mg PO Q8H 10/29/17 Oxycodone HCl/Acetaminophen 1 tab PO Q4H PRN 10/29/17 [Percocet 10-325 mg Tablet] Rosuvastatin Calcium [Crestor] 40 mg PO HS 10/29/17 Torsemide [Demadex] 10 mg PO DAILY 10/29/17 Trazodone HCl 150 mg PO HS 10/29/17 lamoTRIgine [Lamictal] 50 mg PO Q12H 10/29/17 Pantoprazole [Protonix EC Tab] 40 mg PO DAILY 03/01/18 Rivaroxaban [Xarelto] 15 mg PO Q12 #42 tab 03/01/18 Ergocalciferol [Drisdol 50,000 50,000 iu PO QWK 05/05/18 Intl Units Cap] Multivitamin [Daily Erin] 1 tab PO DAILY 05/05/18 - Allergies Allergies/Adverse Reactions: Allergies Allergy/AdvReac Type Severity Reaction Status Date / Time No Known Allergies Allergy Verified 05/04/18 19:41 Review of Systems ROS Statement: Except As Marked, All Systems Reviewed And Found Negative Cardiovascular: Negative for: Chest Pain Respiratory: Positive for: Shortness of Breath Musculoskeletal: Positive for: Neck Pain, Arm Pain (right), Leg Pain (right) Neurological: Positive for: Headache Physical Exam - Reviewed Nursing Documentation Reviewed: Yes Vital Signs Reviewed: Yes - Physical Exam Appears: Positive for: Non-toxic, In Acute Distress Head Exam: Positive for: ATRAUMATIC, NORMOCEPHALIC Skin: Positive for: Warm, Dry, Pallor (chronically ill) Eye Exam: Positive for: EOMI, Normal appearance, PERRL Neck: Positive for: Normal, Painless ROM, Supple Cardiovascular/Chest: Positive for: Regular Rate, Rhythm. Negative for: Murmur Respiratory: Positive for: Normal Breath Sounds. Negative for: Respiratory Distress Gastrointestinal/Abdominal: Positive for: Soft, Tenderness (to palpation on right upper and right lower quadrants), Distended Rectal: Positive for: Normal Exam, Other (no stool impaction, Chaperoned by Nurse Trinidad, bedside during exam) Extremity: Positive for: Other (right arm and leg hemiparesis with poor muscle bulk in right and lower extremities consistent with previous stroke) Neurologic/Psych: Positive for: Alert, Oriented (x3), Other (slurred speech) - Laboratory Results Result Diagrams: 05/05/18 05:40 05/05/18 05:40 - ECG O2 Sat by Pulse Oximetry: 98 (RA) Pulse Ox Interpretation: Normal Medical Decision Making Medical Decision Making: Time: 20:06 Initial Impression: abdominal pain and acute chronic extremity pain Differential diagnoses include but are not limited to: constipation, appendicitis, cholecystitis, mesenteric ischemia Initial Plan: --CT abd & pelvis --EKG --B-Type natriuretic peptide --CMP --Lactic acid --Lipase --Magnesium --Phosphorus --Troponin --Urine dip --CBC with differentials --Partial Thromboplastin Time --Prothrombin time --CXR --Morphine 4 mg IVP --IV insertion 11pm Labs demonstrate marina cath associated UTI, otherwise unremarkable. CT demonstrates colitis. On repeated exams, pt continues to report pain despite IV pain medications. DW Dr Cordon (for PMD [facility] Dr [place]) for hospitalization. Scribe Attestation: Documented by Deanna Fiore, acting as a scribe for Stefany Chavez MD Provider Scribe Attestation: All medical record entries made by the Scribe were at my direction and personally dictated by me. I have reviewed the chart and agree that the record accurately reflects my personal performance of the history, physical exam, medical decision making, and the department course for this patient. I have also personally directed, reviewed, and agree with the discharge instructions and disposition. Disposition - Clinical Impression Clinical Impression: UTI (urinary tract infection), Intractable pain Counseled Patient/Family Regarding: Studies Performed, Diagnosis - Disposition Disposition Time: 23:00 Condition: FAIR - Pt Status Changed To: Hospital Disposition Of: Observation - POA Present On Arrival: Falls Or Trauma, Cath Associated UTI
[2018-05-04 21:22] LABS: BASO % 0.5 % (0.0-2.0); EOS # 0.5 K/uL (0.0-0.7); EOS % 5.4 % (0.0-4.0); HEMOGLOBIN 13.9 g/dL (12.0-18.0); LYMPH # 3.3 K/uL (1.0-4.3); LYMPH % 37.6 % (20.0-40.0); MEAN CELL VOLUME 91.8 fl (80.0-94.0); MEAN CORPUSCULAR HEMOGLOBIN 30.7 pg (27.0-31.0); MEAN CORPUSCULAR HGB CONC 33.4 g/dL (33.0-37.0); MEAN PLATELET VOLUME 7.3 fl (7.2-11.7); MONO # 0.7 K/uL (0.0-0.8); MONO % 8.2 % (0.0-10.0); NEUT # 4.2 K/uL (1.8-7.0); NEUT % 48.3 % (50.0-75.0); NRBC % 0.1 % (0.0-0.0); RBC 4.54 Mil/uL (4.40-5.90); RED CELL DISTRIBUTION WIDTH 14.1 % (11.5-14.5); WHITE BLOOD COUNT 8.7 K/uL (4.8-10.8)
[2018-05-04 21:28] LABS: PARTIAL THROMBOPLASTIN TIME 33.4 Seconds (25.6-37.1)
[2018-05-04 21:29] LABS: ALB/GLOB RATIO 0.9 (1.0-2.1); ALBUMIN 4.2 g/dL (3.5-5.0); ALT/SGPT 35 U/L (21-72); AST/SGOT 38 U/L (17-59); BLOOD UREA NITROGEN 18 mg/dl (9-20); CALCIUM 9.9 mg/dL (8.4-10.2); GFR AFRICAN-AMERICAN > 60; GFR NON-AFRICAN AMERICAN > 60; LIPASE 65 U/L (23-300)
[2018-05-04 21:40] LABS: B-TYPE NATRIURETIC PEPTIDE 136 pg/ml (0-900)
[2018-05-04] MEDS ORDERED: Sodium Chloride 0.9% 50 ML IV ONE (21:56)
[2018-05-04] MEDS ORDERED: Iohexol 300 100 ML IJ ONE (21:56)
[2018-05-04 21:58] LABS: URINE BACTERIA OCC (<OCC); URINE BILIRUBIN NEGATIVE (NEGATIVE); URINE BLOOD SMALL (NEGATIVE); URINE CLARITY SLIGHTY-CLOUDY (Clear); URINE COLOR YELLOW (YELLOW); URINE GLUCOSE (UA) NEG (Normal); URINE LEUKOCYTE ESTERASE LARGE Leu/uL (Negative); URINE PROTEIN NEGATIVE (NEGATIVE); URINE UROBILINOGEN 0.2-1.0 mg/dL (0.2-1.0)
[2018-05-04] MEDS ORDERED: cefTRIAXone (Rocephin) 1 gm Inj ONE (23:33)
--- NOTE | 2018-05-04 23:33 | CP.PCM.HP ---
History of Present Illness - History of Present Illness History of Present Illness: PMD: Dr. Berger Chief Complaint: Abdominal Pain The patient was seen and examined in the ED HPI: The hx was obtained from the patient and the medical records. He is a 62 years old male with hx of CVA with right side hemiplegia, Chronic pain to the Paralytic side, Indwelling marina catheter, DM II and DVT with Abdominal surgery for megacolon. He comes with constipation of 5 days with generalized abdominal pain most intense at the right side and associated with nausea and abdominal distention. No relief with suppositories and other laxatives No vomits, chills , vomits, vomits nor fever. He has an indwelling marina catheter. PMH: HTN; Chronic pain to the right paralytic side and the back; CVA wth right Hemiplegia and left lower extremity paralyzed; Depression and Anxiety; Gastritis ; HLD; Bilateral Leg edema; Pneumonia: DM II; DVT on Xarelto; Indwelling Marina catheter; PSH: Right foot surgery; Megacolon surgery; Ear surgery SH: Never smoked; No illegal drug use; No Alcohol; Live with family FH: States: no known family hx Allergy: NKDA Medications: Reviewed Present on Admission - Present on Admission Any Indicators Present on Admission: Yes History of DVT/PE: No History of Uncontrolled Diabetes: Yes Urinary Catheter: No Decubitus Ulcer Present: No Review of Systems - Constitutional Constitutional: Headache. absent: Chills, Fever - EENT Eyes: Requires Corrective Lenses. absent: Diplopia, Floaters, Irritation, Loss of Peripheral Vision Ears: absent: Decreased Hearing, Tinnitus, Disequilibrium Nose/Mouth/Throat: Sore Throat. absent: Epistaxis, Nasal Congestion, Nasal Discharge - Cardiovascular Cardiovascular: Edema. absent: Chest Pain - Respiratory Respiratory: absent: Cough, Dyspnea, Wheezing, Stridor - Gastrointestinal Gastrointestinal: Abdominal Pain, Constipation. absent: Nausea, Vomiting - Musculoskeletal Musculoskeletal: Arthralgias, Back Pain - Integumentary Integumentary: absent: Pruritus, Rash, Skin Ulcer, Sores, Striae - Neurological Neurological: Focal Weakness. absent: Confusion, Headaches Additional comments: Right hemiplegia - Psychiatric Psychiatric: Anxiety, Depression - Endocrine Endocrine: absent: Palpitations, Polydipsia, Polyphagia, Polyuria - Hematologic/Lymphatic Hematologic: absent: Easy Bleeding, Easy Bruising Past Patient History - Tetanus Immunizations Tetanus Immunization: Unknown - Past Medical History & Family History Past Medical History?: Yes - Past Social History Smoking Status: Never Smoked Chewing Tobacco Use: No Cigar Use: No Alcohol: None Drugs: Denies Home Situation {Lives}: With Family - CARDIAC Hx Hypercholesterolemia: Yes Hx Hypertension: Yes Hx Peripheral Edema: Yes - PULMONARY Hx Pneumonia: Yes - NEUROLOGICAL Hx Neurological Disorder: Yes HX Cerebrovascular Accident: Yes (x2; 9yrs ago) - HEENT Hx HEENT Problems: Yes Other/Comment: eyeglasses - RENAL Hx Chronic Kidney Disease: No - ENDOCRINE/METABOLIC Hx Endocrine Disorders: Yes Hx Diabetes Mellitus Type 2: Yes - HEMATOLOGICAL/ONCOLOGICAL Hx Anemia: Yes Hx Human Immunodeficiency Virus (HIV): No - INTEGUMENTARY Hx Dermatological Problems: No - MUSCULOSKELETAL/RHEUMATOLOGICAL Hx Musculoskeletal Disorders: No Hx Falls: No Other/Comment: right sided paralysis s/p CVA - GASTROINTESTINAL Hx Gastritis: Yes - GENITOURINARY/GYNECOLOGICAL Hx Genitourinary Disorders: Yes Hx Incontinence: Yes Hx Prostate Problems: Yes Hx Urinary Tract Infection: Yes (urinary retention) - PSYCHIATRIC Hx Anxiety: Yes Hx Depression: Yes - SURGICAL HISTORY Hx Surgeries: Yes Other/Comment: Neck Sx, Right hand Sx, Right leg Sx, cystoscopy , R ankle surgery - ANESTHESIA Hx Anesthesia: Yes Hx Anesthesia Reactions: No Hx Malignant Hyperthermia: No Meds Allergies/Adverse Reactions: Allergies Allergy/AdvReac Type Severity Reaction Status Date / Time No Known Allergies Allergy Verified 05/04/18 19:41 Physical Exam - Constitutional Appears: No Acute Distress - Head Exam Head Exam: ATRAUMATIC, NORMAL INSPECTION, NORMOCEPHALIC - Eye Exam Eye Exam: EOMI, Normal appearance Pupil Exam: NORMAL ACCOMODATION, PERRL - ENT Exam ENT Exam: Mucous Membranes Moist, Normal Exam, Normal Oropharynx - Neck Exam Neck exam: Negative for: Lymphadenopathy, Tenderness Additional comments: Soft neck brace in place - Respiratory Exam Respiratory Exam: Clear to Auscultation Bilateral. absent: Rales, Rhonchi, Wheezes - Cardiovascular Exam Cardiovascular Exam: REGULAR RHYTHM, RRR, +S1, +S2. absent: Gallop, JVD - GI/Abdominal Exam Additional comments: Obese, Firm, non tender on palpation, reduced bowel sounds. - Rectal Exam Rectal Exam: Deferred - Extremities Exam Additional comments: trace edema to both lower extremities - Back Exam Back exam: NORMAL INSPECTION. absent: CVA tenderness (L), CVA tenderness (R) - Neurological Exam Neurological exam: Alert, CN II-XII Intact, Oriented x3, Reflexes Normal - Psychiatric Exam Psychiatric exam: Normal Affect, Normal Mood - Skin Skin Exam: Dry, Intact, Normal Color, Warm Results - Vital Signs Recent Vital Signs: Last Vital Signs Temp 97.5 F L 05/04/18 19:42 Pulse 63 05/04/18 19:42 Resp 18 05/04/18 19:42 BP Pulse Ox 98 05/04/18 21:33 - Labs Result Diagrams: 05/04/18 21:14 05/04/18 21:14 Labs: Laboratory Results - last 24 hr 05/04/18 05/04/18 05/04/18 21:14 21:14 21:14 WBC 8.7 RBC 4.54 Hgb 13.9 Hct 41.7 MCV 91.8 MCH 30.7 MCHC 33.4 RDW 14.1 Plt Count 234 MPV 7.3 Neut % (Auto) 48.3 L Lymph % (Auto) 37.6 [place] % (Auto) 8.2 Eos % (Auto) 5.4 H Baso % (Auto) 0.5 Neut # (Auto) 4.2 Lymph # (Auto) 3.3 [place] # (Auto) 0.7 Eos # (Auto) 0.5 Baso # (Auto) 0.0 PT 11.0 INR 1.0 APTT 33.4 Sodium 139 Potassium 4.2 Chloride 101 Carbon Dioxide 29 Anion Gap 13 BUN 18 Creatinine 0.9 Est GFR ( Amer) > 60 Est GFR (Non-Af Amer) > 60 Random Glucose 160 H Lactic Acid Calcium 9.9 Phosphorus 2.7 Magnesium 2.1 Total Bilirubin 0.3 AST 38 ALT 35 Alkaline Phosphatase 107 Troponin I < 0.0120 NT-Pro-B Natriuret Pep 136 Total Protein 9.0 H Albumin 4.2 Globulin 4.8 H Albumin/Globulin Ratio 0.9 L Lipase 65 Urine Color Urine Clarity Urine pH Ur Specific [place] Urine Protein Urine Glucose (UA) Urine Ketones Urine Blood Urine Nitrate Urine Bilirubin Urine Urobilinogen Ur Leukocyte Esterase Urine RBC (Auto) Urine Microscopic WBC Urine Bacteria 05/04/18 05/04/18 21:14 21:43 WBC RBC Hgb Hct MCV MCH MCHC RDW Plt Count MPV Neut % (Auto) Lymph % (Auto) [place] % (Auto) Eos % (Auto) Baso % (Auto) Neut # (Auto) Lymph # (Auto) [place] # (Auto) Eos # (Auto) Baso # (Auto) PT INR APTT Sodium Potassium Chloride Carbon Dioxide Anion Gap BUN Creatinine Est GFR ( Amer) Est GFR (Non-Af Amer) Random Glucose Lactic Acid 1.5 Calcium Phosphorus Magnesium Total Bilirubin AST ALT Alkaline Phosphatase Troponin I NT-Pro-B Natriuret Pep Total Protein Albumin Globulin Albumin/Globulin Ratio Lipase Urine Color Yellow Urine Clarity Slighty-cloudy Urine pH 6.0 Ur Specific [place] 1.010 Urine Protein Negative Urine Glucose (UA) Neg Urine Ketones Negative Urine Blood Small Urine Nitrate Positive H Urine Bilirubin Negative Urine Urobilinogen 0.2-1.0 Ur Leukocyte Esterase Large Urine RBC (Auto) 5 H Urine Microscopic WBC 24 H Urine Bacteria Occ H - Impressions Impression: Sinus bradycardia 59/min - Imaging and Cardiology CT scan - abdomen Status: Report reviewed by me Additional comment: EXAM: CT Abdomen and Pelvis With Intravenous Contrast EXAM DATE/TIME: 05/04/2018 8:06 PM FINDINGS: Lung bases: Unremarkable. No mass. No consolidation. Heart: Coronary artery calcifications. ABDOMEN: Liver: Unremarkable. No mass. Gallbladder and bile ducts: Unremarkable. No calcified stones. No ductal dilation. Pancreas: Unremarkable. No mass. No ductal dilation. Spleen: Unremarkable. No splenomegaly. Adrenals: Unremarkable. No mass. Kidneys and ureters: Unremarkable. No solid mass. No hydronephrosis. Stomach and bowel: Stool throughout the colon consistent with constipation. No obstruction. No mucosal thickening. PELVIS: Appendix: Appendectomy. Bladder: Marina catheter decompresses the urinary bladder. Reproductive: Unremarkable as visualized. ABDOMEN and PELVIS: Intraperitoneal space: Unremarkable. No free air. No significant fluid collection. Bones/joints: No acute fracture. No dislocation. Soft tissues: Unremarkable. Vasculature: Unremarkable. No abdominal aortic aneurysm. Lymph nodes: Unremarkable. No enlarged lymph nodes. IMPRESSION: Stool throughout the colon consistent with constipation. No colon wall thickening to suggest colitis. Chest x-ray Status: Image reviewed by me Additional comment: No Infiltrates Assessment & Plan - Assessment and Plan (Free Text) Assessment: #. Abdominal Pain #. Constipation #. Marina catheter associated UTI #. Chronic Pain #. DM II #. Hx of DVT #. Anxiety and Depression #. Hx of CVA with right Hemiplegia #. Gastritis Plan: 62 years old male with hx of CVA with right side hemiplegia, Chronic pain to the Paralytic side, Indwelling marina catheter, DM II and DVT with Abdominal surgery for megacolon. He comes with constipation of 5 days with generalized abdominal pain most intense at the right side and associated with nausea and abdominal distention. No relief with suppositories and other laxatives No vomits, chills, vomits, vomits nor fever. He has an indwelling marina catheter. #. Abdominal Pain due to the Constipation CT Abdomen: Stool throughout the colon - Tap water Enema - Golytely 2000mls - Senokot - Miralax #. Marina catheter associated UTI - Ceftriaxone - Follow urine culture #. Chronic Pain from the limbs affected by the CVA - Continue Home medication with oxycodone #. DM II - Aspart Insulin sliding scale according to accucheck - Levmarga #. Hx of DVT - Xarelto #. Code Status Full - Date & Time Date: 05/04/18 Time: 23:33
[2018-05-05] MEDS ORDERED: Peg-Electrolyte Oral Soln 4L (Golytely) PO ONE (00:47)
[2018-05-05] MEDS ORDERED: Patient's Own Med (Oxycodone Hcl/Acetaminophen [Percocet 10-325 Mg Tablet] 1 TAB) PO PRN (01:06)
[2018-05-05] MEDS ORDERED: oxyCODONE 40 mg ER Tab (oxyCONTIN) PO SCH ×2 (01:15→21:00)
[2018-05-05] MEDS ORDERED: Ergocalciferol 50,000 Intl Units Cap PO SCH (01:15)
[2018-05-05] MEDS ORDERED: POLYETHYLENE GLYCOL 3350 17 GM/Dose PACKET PO PRN (02:46)
[2018-05-05 02:51] VITALS: TEMP 98.3
[2018-05-05] MEDS: Oxycodone/Acetaminophen 5/325 mg Tab PO PRN ×2 (03:09→08:28)
[2018-05-05 06:19] LABS: BASO % 0.4 % (0.0-2.0); BLOOD UREA NITROGEN 17 mg/dl (9-20); CALCIUM 9.5 mg/dL (8.4-10.2); EOS # 0.5 K/uL (0.0-0.7); GFR AFRICAN-AMERICAN > 60; GFR NON-AFRICAN AMERICAN > 60; HEMOGLOBIN 13.6 g/dL (12.0-18.0); LYMPH # 4.1 K/uL (1.0-4.3); MEAN CELL VOLUME 92.2 fl (80.0-94.0); MEAN CORPUSCULAR HGB CONC 33.6 g/dL (33.0-37.0); MEAN PLATELET VOLUME 7.3 fl (7.2-11.7); MONO # 0.9 K/uL (0.0-0.8); MONO % 8.6 % (0.0-10.0); NEUT # 4.7 K/uL (1.8-7.0); RBC 4.38 Mil/uL (4.40-5.90); RED CELL DISTRIBUTION WIDTH 14.2 % (11.5-14.5); WHITE BLOOD COUNT 10.2 K/uL (4.8-10.8)
[2018-05-05 07:54] VITALS: PULSE 64
[2018-05-05] MEDS: Insulin Lispro (humaLOG) 100 Units/ml Inj SC SCH ×2 (08:17→12:24)
[2018-05-05] MEDS ORDERED: Multivitamin With Minerals Tab PO SCH (09:00)
[2018-05-05] MEDS ORDERED: Pantoprazole 40 mg EC Tab PO SCH (09:00)
[2018-05-05] MEDS ORDERED: Insulin Detemir 100 Units/ml Inj SC SCH (09:00)
--- NOTE | 2018-05-05 10:05 | CT ---
PROCEDURE: CT Abdomen and Pelvis with contrast HISTORY: abd pain r/o colitis COMPARISON: Abdomen and pelvis CT examination with and without contrast 11/20/2013. TECHNIQUE: Following the intravenous administration of iodinated contrast material, a CT examination of the abdomen and pelvis performed from the domes of the diaphragms to the symphysis pubis with reformatted datasets provided not only axial but also sagittal and coronal planes. Oral contrast was not administered as per referring physician request. Contrast dose: Omnipaque 300, 90 cc Radiation dose: Total exam DLP = 1175.19 mGy-cm. This CT exam was performed using one or more of the following dose reduction techniques: Automated exposure control, adjustment of the mA and/or kV according to patient size, and/or use of iterative reconstruction technique. FINDINGS: LOWER THORAX: Limited bilateral basilar dependent atelectasis identified. A small hiatal hernia is reiterated. LIVER: Diffusely diminished attenuation throughout the liver indicates hepatic steatosis. No mass or intrahepatic biliary dilatation appreciable. GALLBLADDER AND BILE DUCTS: Gallbladder is distended but thin and smooth walled without radiodense cholelithiasis or pericholecystic fluid collection. Intrahepatic ducts appear normal in caliber as well. PANCREAS: Unremarkable. No gross lesion or ductal dilatation. SPLEEN: Unremarkable. ADRENALS: Unremarkable. No mass. KIDNEYS AND URETERS: Right kidney appears unremarkable. There is a tiny lucency at the upper pole left kidney too small to characterize but stable in the interval. No obstructive uropathy bilaterally. VASCULATURE: An atherosclerotic nonaneurysmal abdominal aorta is identified. BOWEL: Stomach is collapsed. There is no bowel obstruction appreciated. Prominent fecal loading is seen throughout the colon in a pattern suspicious for constipation. Borderline rectal fecal impaction to 7.0 cm transverse dimension. There portions of central small bowel the contain fecalized contents in short segments which may instead reflect poorly digested food. APPENDIX: The appendix not identified and surgical clips seen at the cecal base suggestive prior appendectomy. Clinically correlate. PERITONEUM: Unremarkable. No free fluid. No free air. LYMPH NODES: Unremarkable. No enlarged lymph nodes. BLADDER: The bladder is decompressed by Owens catheter. REPRODUCTIVE: Limited chronic compression fracture T12. BONES: No acute fracture. OTHER FINDINGS: None. IMPRESSION: 1. Prominent retained fecal material throughout the colon suggesting constipation. Borderline rectal fecal impaction. Short segments of fecalized small bowel may reflect elevated transit time through the small bowel but ultimately, the pattern is nonspecific. No bowel obstruction appreciable. 2. Hepatic steatosis. 3. Potential prior appendectomy. Clinically correlate further. Concordant preliminary report from [facility], 05/04/2018.
--- NOTE | 2018-05-05 10:52 | RAD ---
HISTORY: leg swelling COMPARISON: Portable chest 03/01/2018. FINDINGS: LUNGS: No interval pulmonary disease appreciable. PLEURA: No significant pleural effusion identified, no pneumothorax apparent. CARDIOVASCULAR: Cardiac silhouette is unchanged in appearance, potentially mildly enlarged. OSSEOUS STRUCTURES: Incidental note is made of multilevel anterior and posterior cervical spinal fusion hardware. VISUALIZED UPPER ABDOMEN: Normal. OTHER FINDINGS: None. IMPRESSION: No interval acute cardiopulmonary disease. Mild cardiomegaly not excluded but stable if present. Frontal technique likely exerts at least some technical magnification.
--- NOTE | 2018-05-05 11:07 | CARD ---
APPROVED REPORT EKG Measurement Heart [id number] ID [id number] <Conclusion> Sinus bradycardia Minimal voltage criteria for LVH, may be normal variant Borderline ECG
[2018-05-05] MEDS ORDERED: Oxycodone/Acetaminophen 5/325 mg Tab PO STA (11:14)
[2018-05-05 15:24] VITALS: BP 98/62; RESP 20; O2SAT 95
--- NOTE | 2018-05-05 15:35 | CP.PCM.DIS ---
Provider - Provider Date of Admission: 05/04/18 23:34 Attending physician: Ronald Cordon Time Spent in preparation of Discharge (in minutes): 25 Diagnosis - Discharge Diagnosis (1) Abdominal pain Status: Acute Comment: had some relief after having large amount of BM. chronic constipation secondary to narcotic (2) DM2 (diabetes mellitus, type 2) Status: Chronic Priority: Medium Comment: BS controlled. Levemir 30 units SC daily Hospital Course - Lab Results Lab Results: Most Recent Lab Values WBC 10.2 K/uL (4.8-10.8) 05/05/18 05:40 RBC 4.38 Mil/uL (4.40-5.90) L 05/05/18 05:40 Hgb 13.6 g/dL (12.0-18.0) 05/05/18 05:40 Hct 40.4 % (35.0-51.0) 05/05/18 05:40 MCV 92.2 fl (80.0-94.0) 05/05/18 05:40 MCH 31.0 pg (27.0-31.0) 05/05/18 05:40 MCHC 33.6 g/dL (33.0-37.0) 05/05/18 05:40 RDW 14.2 % (11.5-14.5) 05/05/18 05:40 Plt Count 226 K/uL (130-400) 05/05/18 05:40 MPV 7.3 fl (7.2-11.7) 05/05/18 05:40 Neut % (Auto) 46.0 % (50.0-75.0) L 05/05/18 05:40 Lymph % (Auto) 40.0 % (20.0-40.0) 05/05/18 05:40 Dickens % (Auto) 8.6 % (0.0-10.0) 05/05/18 05:40 Eos % (Auto) 5.0 % (0.0-4.0) H 05/05/18 05:40 Baso % (Auto) 0.4 % (0.0-2.0) 05/05/18 05:40 Neut # (Auto) 4.7 K/uL (1.8-7.0) 05/05/18 05:40 Lymph # (Auto) 4.1 K/uL (1.0-4.3) 05/05/18 05:40 Dickens # (Auto) 0.9 K/uL (0.0-0.8) H 05/05/18 05:40 Eos # (Auto) 0.5 K/uL (0.0-0.7) 05/05/18 05:40 Baso # (Auto) 0.0 K/uL (0.0-0.2) 05/05/18 05:40 PT 11.0 Seconds (9.8-13.1) 05/04/18 21:14 INR 1.0 (0.9-1.2) 05/04/18 21:14 APTT 33.4 Seconds (25.6-37.1) 05/04/18 21:14 Sodium 140 mmol/l (132-148) 05/05/18 05:40 Potassium 3.9 MMOL/L (3.6-5.0) 05/05/18 05:40 Chloride 102 mmol/L (98-107) 05/05/18 05:40 Carbon Dioxide 27 mmol/L (22-30) 05/05/18 05:40 Anion Gap 15 (10-20) 05/05/18 05:40 BUN 17 mg/dl (9-20) 05/05/18 05:40 Creatinine 0.9 mg/dl (0.8-1.5) 05/05/18 05:40 Est GFR ( Amer) > 60 05/05/18 05:40 Est GFR (Non-Af Amer) > 60 05/05/18 05:40 POC Glucose (mg/dL) 115 mg/dL (65-110) H 05/05/18 11:04 Random Glucose 130 mg/dL (75-110) H 05/05/18 05:40 Lactic Acid 1.5 MMOL/L (0.7-2.1) 05/04/18 21:14 Calcium 9.5 mg/dL (8.4-10.2) 05/05/18 05:40 Phosphorus 2.7 mg/dl (2.5-4.5) 05/04/18 21:14 Magnesium 2.1 MG/DL (1.6-2.3) 05/04/18 21:14 Total Bilirubin 0.3 mg/dl (0.2-1.3) 05/04/18 21:14 AST 38 U/L (17-59) 05/04/18 21:14 ALT 35 U/L (21-72) 05/04/18 21:14 Alkaline Phosphatase 107 U/L (38-126) 05/04/18 21:14 Troponin I < 0.0120 ng/mL (0.00-0.120) 05/04/18 21:14 NT-Pro-B Natriuret Pep 136 pg/ml (0-900) 05/04/18 21:14 Total Protein 9.0 G/DL (6.3-8.2) H 05/04/18 21:14 Albumin 4.2 g/dL (3.5-5.0) 05/04/18 21:14 Globulin 4.8 gm/dL (2.2-3.9) H 05/04/18 21:14 Albumin/Globulin Ratio 0.9 (1.0-2.1) L 05/04/18 21:14 Lipase 65 U/L (23-300) 05/04/18 21:14 Urine Color Yellow (YELLOW) 05/04/18 21:43 Urine Clarity Slighty-cloudy (Clear) 05/04/18 21:43 Urine pH 6.0 (5.0-8.0) 05/04/18 21:43 Ur Specific [place] 1.010 (1.003-1.030) 05/04/18 21:43 Urine Protein Negative mg/dL (NEGATIVE) 05/04/18 21:43 Urine Glucose (UA) Neg mg/dL (Normal) 05/04/18 21:43 Urine Ketones Negative mg/dL (NEGATIVE) 05/04/18 21:43 Urine Blood Small (NEGATIVE) 05/04/18 21:43 Urine Nitrate Positive (NEGATIVE) H 05/04/18 21:43 Urine Bilirubin Negative (NEGATIVE) 05/04/18 21:43 Urine Urobilinogen 0.2-1.0 mg/dL (0.2-1.0) 05/04/18 21:43 Ur Leukocyte Esterase Large John/uL (Negative) 05/04/18 21:43 Urine RBC (Auto) 5 /hpf (0-3) H 05/04/18 21:43 Urine Microscopic WBC 24 /hpf (0-5) H 05/04/18 21:43 Urine Bacteria Occ (<OCC) H 05/04/18 21:43 - Hospital Course Hospital Course: 62 yo male with history of CVA with residual right hemiplegia with chronic pain on the same side along with chronic indwelling marina catheter, DM2 and DVT came in with abdominal pain associated with constipation, nausea and abdominal distention. CT of abdomen showed retained fecal material throughout the colon. Had large amount of BM earlier today and admitted some relief. Patient discharged in stable condition. Discharge Exam - Head Exam Head Exam: ATRAUMATIC, NORMOCEPHALIC - Eye Exam Eye Exam: absent: Scleral icterus - ENT Exam ENT Exam: Mucous Membranes Moist - Respiratory Exam Respiratory Exam: absent: Rales, Rhonchi, Wheezes, Respiratory Distress - Cardiovascular Exam Cardiovascular Exam: REGULAR RHYTHM, +S1, +S2 - GI/Abdominal Exam GI & Abdominal Exam: Soft. absent: Tenderness - Rectal Exam Rectal Exam: Deferred - Neurological Exam Neurological exam: Alert, Oriented x3 - Psychiatric Exam Psychiatric exam: Normal Affect - Skin Skin Exam: Dry, Intact Discharge Plan - Follow Up Plan Condition: FAIR Disposition: HOME/ ROUTINE Instructions: Constipation, Adult (DC), Acute Abdomen (Belly Pain), Adult (DC) Additional Instructions: follow up with primary MD and neurologist 1 week Referrals: Janine Berger MD [Staff Provider] -
== END 2018-05-05 15:30 | disposition home or self-care (01) ==
LOC: H.ER 19:31 → H.ERHOLD 23:34 → H.MEDSURG1 05-05 02:15
PROVIDERS: ADMIT Internal Medicine; ATTEND Internal Medicine
DX: K59.03 Drug induced constipation (principal); T40.605A Adverse effect of unspecified narcotics, initial encounter; F32.9 Major depressive disorder, single episode, unspecified; F41.9 Anxiety disorder, unspecified; G89.29 Other chronic pain; I10 Essential (primary) hypertension; I69.351 Hemiplegia and hemiparesis following cerebral infarction affecting right dominant side; K29.70 Gastritis, unspecified, without bleeding; T83.518A Infection and inflammatory reaction due to other urinary catheter, initial encounter; Y84.6 Urinary catheterization as the cause of abnormal reaction of the patient, or of later complication, without mention of misadventure at the time of the procedure; N39.0 Urinary tract infection, site not specified; Z79.01 Long term (current) use of anticoagulants; E11.9 Type 2 diabetes mellitus without complications; Z86.718 Personal history of other venous thrombosis and embolism; E78.5 Hyperlipidemia, unspecified; E78.00 Pure hypercholesterolemia, unspecified
CPT/HCPCS: 36415; 71045; 74177; 80048; 80053; 81003; 82948; 83605; 83690; 83735; 83880; 84100; 84484; 85025; 85610; 85730; 87086; 93005; 96365; 96375; 96376; 99284; G0378; J0696; J2270; Q9967

== ENCOUNTER 2018-06-24 20:35 | Emergency (ER) | payer MEDICARE, MEDICAID ==
[2018-06-24 20:35] VITALS: BMI 25.8
[2018-06-24] MEDS ORDERED: Oxycodone/Acetaminophen 5/325 mg Tab PO STA (21:01)
--- NOTE | 2018-06-24 21:07 | ED PDOC ---
Lower Extremity Pain/Injury Time Seen by Provider: 06/24/18 20:45 Chief Complaint (Nursing): Groin Pain History Per: Patient History/Exam Limitations: no limitations Onset/Duration Of Symptoms: Hrs Current Symptoms Are (Timing): Still Present Additional Complaint(s): Hx of CVA, R hemiplegia, UTI, HTN, HLD, chronic DVT, chronic lower extremity swelling presenting with penile swelling x 1 day and RLE swelling, states his legs swell occasionally because of blood clots and states he may have a new one , despite taking blood thinners. Also states his penis is "swollen", last marina change was 2 weeks ago. Also complaining of chronic pain in RUE for which he takes 2 percocets 10-325mg and 100mg oxycodone. Denies fevers, chills, cough, chest pain, shortness of breath. Past Medical History Reviewed: Historical Data, Nursing Documentation, Vital Signs Vital Signs: Last Vital Signs Temp 98.5 F 06/24/18 20:39 Pulse 55 L 06/24/18 20:39 Resp 16 06/24/18 20:39 BP 116/62 06/24/18 20:39 Pulse Ox 97 06/24/18 20:39 - Medical History PMH: Anemia, Anxiety, CVA (with left lower and right upper and lower paralysis) , Depression, Gastritis, HTN, Hypercholesterolemia, Peripheral Edema, Pneumonia Denies: HIV, Chronic Kidney Disease - Family History Family History: States: Unknown Family Hx - Immunization History Hx Tetanus Toxoid Vaccination: No Hx Influenza Vaccination: No Hx Pneumococcal Vaccination: No - Home Medications Home Medications: Ambulatory Orders Medication Instructions Recorded Clonazepam [Klonopin] 2 mg PO HS 05/09/17 Polyethylene Glycol 3350 [Miralax] 17 gm PO DAILY PRN 05/09/17 clonazePAM [Klonopin] 1 mg PO QAM 05/09/17 Naloxegol Oxalate [Movantik] 25 mg PO DAILY #60 05/13/17 Clopidogrel [Plavix] 75 mg PO DAILY 10/29/17 FLUoxetine [Prozac] 20 mg PO DAILY 10/29/17 Gabapentin [Neurontin] 800 mg PO Q8H 10/29/17 Insulin Aspart, Recombinant 4 - 16 unit SC PRN PRN 10/29/17 [Novolog] Insulin Degludec [Tresiba 30 unit SC DAILY 10/29/17 Flextouch U-100] Oxycodone HCl [Oxycontin] 80 mg PO Q8H 10/29/17 Oxycodone HCl/Acetaminophen 1 tab PO Q4H PRN 10/29/17 [Percocet 10-325 mg Tablet] Rosuvastatin Calcium [Crestor] 40 mg PO HS 10/29/17 Torsemide [Demadex] 10 mg PO DAILY 10/29/17 Trazodone HCl 150 mg PO HS 10/29/17 lamoTRIgine [Lamictal] 50 mg PO Q12H 10/29/17 Pantoprazole [Protonix EC Tab] 40 mg PO DAILY 03/01/18 Rivaroxaban [Xarelto] 15 mg PO Q12 #42 tab 03/01/18 Ergocalciferol [Drisdol 50,000 50,000 iu PO QWK 05/05/18 Intl Units Cap] Multivitamin [Daily Erin] 1 tab PO DAILY 05/05/18 - Allergies Allergies/Adverse Reactions: Allergies Allergy/AdvReac Type Severity Reaction Status Date / Time No Known Allergies Allergy Verified 06/24/18 20:39 Wells Criteria for PE - Wells Criteria for Pulmonary Embolism Clinical Signs and Symptoms of DVT: No P.E is #1 Diagnosis, or Equally Likely: No Heart Rate >100: No Immobilization at least 3 days;Surgery previous 4 weeks: No Previous, objectively diagnosed PE or DVT: Yes Hemoptysis: No Malignancy w/treatment within 6 months, or palliative: No Total Score: 1.5 Review of Systems ROS Statement: Except As Marked, All Systems Reviewed And Found Negative Cardiovascular: Positive for: Edema Genitourinary Male: Negative for: Dysuria, Frequency, Incontinence, Hematuria Physical Exam - Reviewed Nursing Documentation Reviewed: Yes Vital Signs Reviewed: Yes - Physical Exam Appears: Positive for: Non-toxic, No Acute Distress. Negative for: Well ( Chronically ill appearing) Head Exam: Positive for: ATRAUMATIC, NORMAL INSPECTION, NORMOCEPHALIC Skin: Positive for: Normal Color, Warm, DRY Eye Exam: Positive for: EOMI, Normal appearance, PERRL ENT: Positive for: Normal ENT Inspection Neck: Positive for: Normal, Painless ROM Cardiovascular/Chest: Positive for: Regular Rate, Rhythm Respiratory: Positive for: CNT, Normal Breath Sounds Gastrointestinal/Abdominal: Positive for: Normal Exam, Soft Male Genital Exam: Positive for: other (Indwelling marina catheter in place with mucoid discharge, no swelling/erythema/bleeding noticed) Back: Positive for: Normal Inspection Extremity: Positive for: Other (Chronic contracture of RUE/RLE, RLE and LLE have mild edema 1+, neg Jeevan's sign, no erythema, equal pulses) Neurologic/Psych: Positive for: Alert, Oriented - ECG O2 Sat by Pulse Oximetry: 97 Medical Decision Making Medical Decision MakinPM A/P: Hx of HTN, HLD, CVA, chronic DVT and edema presenting with penile swelling and RLE swelling as well as chronic pain -patient chronically ill appearing, however stable, normal vitals -no appreciable abnormality seen on exam of penis except mild discharge, will change marina and check urine -RLE does not have signs of new DVT, however given hx will get U/S -2 percocets ordered for patient's chronic RUE pain TIME: 2225 US RESULTS FINDINGS: Deep veins: Lack of compressibility of popliteal vein. No significant flow on color or spectral Doppler imaging. Superficial veins: No thrombosis. Soft tissues: No popliteal cyst. IMPRESSION: 1. DVT within popliteal vein. Thank you for allowing us to participate in the care of your patient. Dictated and Authenticated by: Efraín Barnes MD 06/24/2018 10:25 PM Eastern Time ([place] & [place]) Patient's results discussed, states that he is aware of UTI and DVT. Radiologist states he cannot differentiate between new and old DVT on this exam. Patient has known DVT's in this leg, not an acute issue warranting admission, no CP, SOB, tachycardia to be concerned for PE at this time. Advised patient to continue his anticoagulant and ABx. Patient well appearing with normal vitals, using cellphone at bedside. Disposition - Clinical Impression Clinical Impression: UTI (lower urinary tract infection) - Disposition Referrals: Janine Berger MD [Staff Provider] - Disposition: Routine/Home Disposition Time: 23:52 Condition: STABLE Instructions: Urinary Tract Infections in Adults, Deep Vein Thrombosis (Blood Clots in the Legs) Forms: [employer] ([place]rainian)
[2018-06-24] MEDS ORDERED: Oxycodone/Acetaminophen 5/325 mg Tab ONE (22:35)
[2018-06-25] MEDS ORDERED: Oxycodone/Acetaminophen 5/325 mg Tab PO STA (04:12)
[2018-06-25 05:12] VITALS: TEMP 98.3
[2018-06-25] MEDS ORDERED: Morphine 4 MG/ML VIAL ONE (05:33)
[2018-06-25 08:00] VITALS: BP 138/68; PULSE 60; RESP 19; O2SAT 98
--- NOTE | 2018-06-25 15:51 | US ---
Date of service: 06/24/2018 PROCEDURE: Right lower extremity venous duplex Doppler. HISTORY: hx of DVT in R leg, r/o NEW dvt COMPARISON: Comparison is made with the previous study dated 03/01/2018. TECHNIQUE: Common femoral, superficial femoral, popliteal and posterior tibial veins were evaluated. Flow was assessed with color Doppler, compressibility, assessment of phasic flow and augmentation response. FINDINGS: COMMON FEMORAL VEIN: Unremarkable. SUPERFICIAL FEMORAL VEIN: Unremarkable. POPLITEAL VEIN: There is a filling defect in the right popliteal vein associated with [place] of compressibility suggestive of DVT. POSTERIOR TIBIAL VEIN: Unremarkable. OTHER FINDINGS: None. IMPRESSION: Findings suggestive of DVT within popliteal vein. Preliminary report was submitted by [facility] [employer].
== END 2018-06-25 07:59 | disposition home or self-care (01) ==
LOC: H.ER 20:35
DX: N39.0 Urinary tract infection, site not specified (principal); I82.409 Acute embolism and thrombosis of unspecified deep veins of unspecified lower extremity; Z86.59 Personal history of other mental and behavioral disorders; G89.29 Other chronic pain; Z79.4 Long term (current) use of insulin; E78.00 Pure hypercholesterolemia, unspecified; I10 Essential (primary) hypertension; Z86.73 Personal history of transient ischemic attack (TIA), and cerebral infarction without residual deficits
CPT/HCPCS: 82948; 93971; 96372; 99285; J2270